=== PATIENT | male | born 1975 | race Caucasian/White ===

== ENCOUNTER 2017-11-15 17:45 | Emergency (ER) | payer SELFPAY | END 2017-11-15 17:46 | disposition left against medical advice (07) | LOC: ED 17:45 | DX: Z00.8 Encounter for other general examination (principal); Z53.21 Procedure and treatment not carried out due to patient leaving prior to being seen by health care provider ==

== ENCOUNTER 2018-09-08 13:56 | Inpatient (IN) | payer SELFPAY ==
[2018-09-08 14:36] LABS: Hematocrit 38.7 % (35.5-45.6); Mean Corpuscular HGB Conc 34 % (32-34); Mean Corpuscular Volume 87 fl (84-94); Platelet Count 192 K/mm3 (140-440); Red Blood Count 4.43 M/mm3 (3.65-5.03); Red Cell Distribution Width 13.8 % (13.2-15.2)
[2018-09-08] MEDS ORDERED: NACL 0.9% 1000 ML 1,000 ML IV ONE (14:38)
[2018-09-08] MEDS ORDERED: NACL 0.9% 1000 ML 1,000 ML ONE (14:41)
--- NOTE | 2018-09-08 14:45 | Emergency Department Report ---
ED Altered Mental Status HPI - General Chief Complaint: Altered Mental Status Stated Complaint: AMS Time Seen by Provider: 09/08/18 14:30 Source: EMS Mode of arrival: Stretcher Limitations: Altered Mental Status - History of Present Illness Initial Comments: Patient is 43 years old male, unknown past medical history. Patient brought to the emergency room via EMS for evaluation of altered mental status and decreased responsiveness. EMS stated that patient is staying in a local motel when the insurance agency owner called stating that the patient had been sick for days. Patient is not verbally responsive. Vital signs stable with an oxygen saturation of 96% on ro om air and a blood pressure of 105/59. Upon examining the patient patient responding only to painful stimuli. Nurse stated that patient has diarrhea in his underwear. Unable to obtain more history at this point. MD Complaint: altered mental status, decreased responsiveness -: unknown Severity: severe - Related Data Allergies Allergy/AdvReac Type Severity Reaction Status Date / Time Unable to Assess Allergy Unverified 09/08/18 14:11 ED Review of Systems ROS: Stated complaint: AMS Other details as noted in HPI Comment: Unobtainable due to pts medical conditions ED Past Medical Hx - Past Medical History Previous Medical History?: No Additional medical history: ROXIE - Surgical History Past Surgical History?: No Additional Surgical History: ROXIE - Social History Smoking Status: Unknown if ever smoked ED Physical Exam - General Limitations: Altered Mental Status General appearance: obtunded - Head Head exam: Present: atraumatic, normocephalic, normal inspection - Eye Eye exam: Present: normal appearance, PERRL - ENT ENT exam: Present: mucous membranes dry - Neck Neck exam: Present: normal inspection, full ROM. Absent: tenderness, meningismus, lymphadenopathy, thyromegaly - Respiratory Respiratory exam: Present: normal lung sounds bilaterally. Absent: respiratory distress, wheezes, rales, rhonchi, chest wall tenderness, accessory muscle use, decreased breath sounds, prolonged expiratory - Cardiovascular Cardiovascular Exam: Present: regular rate, normal rhythm, normal heart sounds - GI/Abdominal GI/Abdominal exam: Present: soft, normal bowel sounds. Absent: distended, guarding, rebound, organomegaly, mass, bruit, pulsatile mass, hernia - Extremities Exam Extremities exam: Present: normal inspection, full ROM, normal capillary refill. Absent: pedal edema, calf tenderness - Back Exam Back exam: Present: normal inspection. Absent: tenderness, CVA tenderness (R) - Neurological Exam Neurological exam: Present: altered - Skin Skin exam: Present: dry ED Course Vital Signs 09/08/18 09/08/18 14:07 15:00 Temperature 98.3 F Pulse Rate 97 H 95 H Respiratory 20 14 Rate Blood Pressure 105/59 Blood Pressure 102/66 [Right] O2 Sat by Pulse 96 100 Oximetry - Lab Data Result diagrams: 09/08/18 14:23 09/08/18 14:23 Lab Results 09/08/18 09/08/18 09/08/18 Range/Units 14:08 14:23 14:23 WBC 26.0 H (4.5-11.0) K/mm3 RBC 4.43 (3.65-5.03) M/mm3 Hgb 13.0 (11.8-15.2) gm/dl Hct 38.7 (35.5-45.6) % MCV 87 (84-94) fl MCH 29 (28-32) pg MCHC 34 (32-34) % RDW 13.8 (13.2-15.2) % Plt Count 192 (140-440) K/mm3 Add Manual Diff Complete Total Counted 100 Seg Neuts % (Manual) 82.0 H (40.0-70.0) % Band Neutrophils % 10.0 % Lymphocytes % (Manual) 2.0 L (13.4-35.0) % Reactive Lymphs % (Man) 0 % Monocytes % (Manual) 6.0 (0.0-7.3) % Eosinophils % (Manual) 0 (0.0-4.3) % Basophils % (Manual) 0 (0.0-1.8) % Metamyelocytes % 0 % Myelocytes % 0 % Promyelocytes % 0 % Blast Cells % 0 % Nucleated RBC % Not Reportable Seg Neutrophils # Man 21.3 H (1.8-7.7) K/mm3 Band Neutrophils # 2.6 K/mm3 Lymphocytes # (Manual) 0.5 L (1.2-5.4) K/mm3 Abs React Lymphs (Man) 0.0 K/mm3 Monocytes # (Manual) 1.6 H (0.0-0.8) K/mm3 Eosinophils # (Manual) 0.0 (0.0-0.4) K/mm3 Basophils # (Manual) 0.0 (0.0-0.1) K/mm3 Metamyelocytes # 0.0 K/mm3 Myelocytes # 0.0 K/mm3 Promyelocytes # 0.0 K/mm3 Blast Cells # 0.0 K/mm3 WBC Morphology Not Reportable Hypersegmented Neuts Not Reportable Hyposegmented Neuts Not Reportable Hypogranular Neuts Not Reportable Smudge Cells Not Reportable Toxic Granulation Not Reportable Toxic Vacuolation Not Reportable Dohle Bodies Not Reportable Pelger-Huet Anomaly Not Reportable Deepali Rods Not Reportable Platelet Estimate Not Reportable Clumped Platelets Not Reportable Plt Clumps, EDTA Not Reportable Large Platelets Not Reportable Giant Platelets Not Reportable Platelet Satelliting Not Reportable Plt Morphology Comment Not Reportable RBC Morphology Not Reportable Dimorphic RBCs Not Reportable Polychromasia Not Reportable Hypochromasia Not Reportable Poikilocytosis Not Reportable Anisocytosis Few Microcytosis Not Reportable Macrocytosis Not Reportable Spherocytes Not Reportable Pappenheimer Bodies Not Reportable Sickle Cells Not Reportable Target Cells Not Reportable Tear Drop Cells Not Reportable Ovalocytes Not Reportable Helmet Cells Not Reportable Fuentes-Mio Bodies Not Reportable [place] Rings Not Reportable [place] Cells Not Reportable Bite Cells Not Reportable Crenated Cell Not Reportable Elliptocytes Not Reportable Acanthocytes (Spur) Not Reportable Rouleaux Not Reportable Hemoglobin C Crystals Not Reportable Schistocytes Not Reportable Malaria parasites Not Reportable Tristian Bodies Not Reportable Hem Pathologist Commnt No Sodium 126 L (137-145) mmol/L Potassium 4.5 (3.6-5.0) mmol/L Chloride 83.3 L (98-107) mmol/L Carbon Dioxide 28 (22-30) mmol/L Anion Gap 19 mmol/L BUN 37 H (9-20) mg/dL Creatinine 1.8 H (0.8-1.5) mg/dL Estimated GFR 41 ml/min BUN/Creatinine Ratio 21 % Glucose 115 H (75-100) mg/dL POC Glucose 107 H (70-105) Lactic Acid (0.7-2.0) mmol/L Calcium 8.3 L (8.4-10.2) mg/dL Total Bilirubin 3.50 H (0.1-1.2) mg/dL AST 55 H (5-40) units/L ALT 40 (7-56) units/L Alkaline Phosphatase 221 H (35-129) units/L Ammonia (25-60) umol/L Troponin T (0.00-0.029) ng/mL Total Protein 7.5 (6.3-8.2) g/dL Albumin 2.8 L (3.9-5) g/dL Albumin/Globulin Ratio 0.6 % Lipase (13-60) units/L TSH (0.270-4.200) mlU/mL Urine Color (Yellow) Urine Turbidity (Clear) Urine pH (5.0-7.0) Ur Specific [place] (1.003-1.030) Urine Protein (Negative) mg/dL Urine Glucose (UA) (Negative) mg/dL Urine Ketones (Negative) mg/dL Urine Blood (Negative) Urine Nitrite (Negative) Urine Bilirubin (Negative) Urine Urobilinogen (<2.0) mg/dL Ur Leukocyte Esterase (Negative) Urine WBC (Auto) (0.0-6.0) /HPF Urine RBC (Auto) (0.0-6.0) /HPF Urine Opiates Screen Urine Methadone Screen Ur Barbiturates Screen Ur Phencyclidine Scrn Ur Amphetamines Screen U Benzodiazepines Scrn Urine Cocaine Screen U Marijuana (THC) Screen Drugs of Abuse Note Plasma/Serum Alcohol (0-0.07) % 09/08/18 09/08/18 09/08/18 Range/Units 14:23 14:23 14:23 WBC (4.5-11.0) K/mm3 RBC (3.65-5.03) M/mm3 Hgb (11.8-15.2) gm/dl Hct (35.5-45.6) % MCV (84-94) fl MCH (28-32) pg MCHC (32-34) % RDW (13.2-15.2) % Plt Count (140-440) K/mm3 Add Manual Diff Total Counted Seg Neuts % (Manual) (40.0-70.0) % Band Neutrophils % % Lymphocytes % (Manual) (13.4-35.0) % Reactive Lymphs % (Man) % Monocytes % (Manual) (0.0-7.3) % Eosinophils % (Manual) (0.0-4.3) % Basophils % (Manual) (0.0-1.8) % Metamyelocytes % % Myelocytes % % Promyelocytes % % Blast Cells % % Nucleated RBC % Seg Neutrophils # Man (1.8-7.7) K/mm3 Band Neutrophils # K/mm3 Lymphocytes # (Manual) (1.2-5.4) K/mm3 Abs React Lymphs (Man) K/mm3 Monocytes # (Manual) (0.0-0.8) K/mm3 Eosinophils # (Manual) (0.0-0.4) K/mm3 Basophils # (Manual) (0.0-0.1) K/mm3 Metamyelocytes # K/mm3 Myelocytes # K/mm3 Promyelocytes # K/mm3 Blast Cells # K/mm3 WBC Morphology Hypersegmented Neuts Hyposegmented Neuts Hypogranular Neuts Smudge Cells Toxic Granulation Toxic Vacuolation Dohle Bodies Pelger-Huet Anomaly Deepali Rods Platelet Estimate Clumped Platelets Plt Clumps, EDTA Large Platelets Giant Platelets Platelet Satelliting Plt Morphology Comment RBC Morphology Dimorphic RBCs Polychromasia Hypochromasia Poikilocytosis Anisocytosis Microcytosis Macrocytosis Spherocytes Pappenheimer Bodies Sickle Cells Target Cells Tear Drop Cells Ovalocytes Helmet Cells Fuentes-Mio Bodies [place] Rings Trent Cells Bite Cells Crenated Cell Elliptocytes Acanthocytes (Spur) Rouleaux Hemoglobin C Crystals Schistocytes Malaria parasites Tristian Bodies Hem Pathologist Commnt Sodium (137-145) mmol/L Potassium (3.6-5.0) mmol/L Chloride (98-107) mmol/L Carbon Dioxide (22-30) mmol/L Anion Gap mmol/L BUN (9-20) mg/dL Creatinine (0.8-1.5) mg/dL Estimated GFR ml/min BUN/Creatinine Ratio % Glucose (75-100) mg/dL POC Glucose (70-105) Lactic Acid (0.7-2.0) mmol/L Calcium (8.4-10.2) mg/dL Total Bilirubin (0.1-1.2) mg/dL AST (5-40) units/L ALT (7-56) units/L Alkaline Phosphatase (35-129) units/L Ammonia (25-60) umol/L Troponin T < 0.010 (0.00-0.029) ng/mL Total Protein (6.3-8.2) g/dL Albumin (3.9-5) g/dL Albumin/Globulin Ratio % Lipase 104 H (13-60) units/L TSH 4.490 H (0.270-4.200) mlU/mL Urine Color (Yellow) Urine Turbidity (Clear) Urine pH (5.0-7.0) Ur Specific [place] (1.003-1.030) Urine Protein (Negative) mg/dL Urine Glucose (UA) (Negative) mg/dL Urine Ketones (Negative) mg/dL Urine Blood (Negative) Urine Nitrite (Negative) Urine Bilirubin (Negative) Urine Urobilinogen (<2.0) mg/dL Ur Leukocyte Esterase (Negative) Urine WBC (Auto) (0.0-6.0) /HPF Urine RBC (Auto) (0.0-6.0) /HPF Urine Opiates Screen Urine Methadone Screen Ur Barbiturates Screen Ur Phencyclidine Scrn Ur Amphetamines Screen U Benzodiazepines Scrn Urine Cocaine Screen U Marijuana (THC) Screen Drugs of Abuse Note Plasma/Serum Alcohol < 0.01 (0-0.07) % 09/08/18 09/08/18 09/08/18 Range/Units 14:39 14:39 15:08 WBC (4.5-11.0) K/mm3 RBC (3.65-5.03) M/mm3 Hgb (11.8-15.2) gm/dl Hct (35.5-45.6) % MCV (84-94) fl MCH (28-32) pg MCHC (32-34) % RDW (13.2-15.2) % Plt Count (140-440) K/mm3 Add Manual Diff Total Counted Seg Neuts % (Manual) (40.0-70.0) % Band Neutrophils % % Lymphocytes % (Manual) (13.4-35.0) % Reactive Lymphs % (Man) % Monocytes % (Manual) (0.0-7.3) % Eosinophils % (Manual) (0.0-4.3) % Basophils % (Manual) (0.0-1.8) % Metamyelocytes % % Myelocytes % % Promyelocytes % % Blast Cells % % Nucleated RBC % Seg Neutrophils # Man (1.8-7.7) K/mm3 Band Neutrophils # K/mm3 Lymphocytes # (Manual) (1.2-5.4) K/mm3 Abs React Lymphs (Man) K/mm3 Monocytes # (Manual) (0.0-0.8) K/mm3 Eosinophils # (Manual) (0.0-0.4) K/mm3 Basophils # (Manual) (0.0-0.1) K/mm3 Metamyelocytes # K/mm3 Myelocytes # K/mm3 Promyelocytes # K/mm3 Blast Cells # K/mm3 WBC Morphology Hypersegmented Neuts Hyposegmented Neuts Hypogranular Neuts Smudge Cells Toxic Granulation Toxic Vacuolation Dohle Bodies Pelger-Huet Anomaly Deepali Rods Platelet Estimate Clumped Platelets Plt Clumps, EDTA Large Platelets Giant Platelets Platelet Satelliting Plt Morphology Comment RBC Morphology Dimorphic RBCs Polychromasia Hypochromasia Poikilocytosis Anisocytosis Microcytosis Macrocytosis Spherocytes Pappenheimer Bodies Sickle Cells Target Cells Tear Drop Cells Ovalocytes Helmet Cells Fuentes-Mio Bodies [place] Rings Trent Cells Bite Cells Crenated Cell Elliptocytes Acanthocytes (Spur) Rouleaux Hemoglobin C Crystals Schistocytes Malaria parasites Tristian Bodies Hem Pathologist Commnt Sodium (137-145) mmol/L Potassium (3.6-5.0) mmol/L Chloride (98-107) mmol/L Carbon Dioxide (22-30) mmol/L Anion Gap mmol/L BUN (9-20) mg/dL Creatinine (0.8-1.5) mg/dL Estimated GFR ml/min BUN/Creatinine Ratio % Glucose (75-100) mg/dL POC Glucose (70-105) Lactic Acid 2.70 H* (0.7-2.0) mmol/L Calcium (8.4-10.2) mg/dL Total Bilirubin (0.1-1.2) mg/dL AST (5-40) units/L ALT (7-56) units/L Alkaline Phosphatase (35-129) units/L Ammonia (25-60) umol/L Troponin T (0.00-0.029) ng/mL Total Protein (6.3-8.2) g/dL Albumin (3.9-5) g/dL Albumin/Globulin Ratio % Lipase (13-60) units/L TSH (0.270-4.200) mlU/mL Urine Color Brianne (Yellow) Urine Turbidity Clear (Clear) Urine pH 5.0 (5.0-7.0) Ur Specific [place]idden 1.011 (1.003-1.030) Urine Protein <15 mg/dl (Negative) mg/dL Urine Glucose (UA) Neg (Negative) mg/dL Urine Ketones Tr (Negative) mg/dL Urine Blood Neg (Negative) Urine Nitrite Neg (Negative) Urine Bilirubin Neg (Negative) Urine Urobilinogen 2.0 (<2.0) mg/dL Ur Leukocyte Esterase Neg (Negative) Urine WBC (Auto) 1.0 (0.0-6.0) /HPF Urine RBC (Auto) < 1.0 (0.0-6.0) /HPF Urine Opiates Screen Presumptive negative Urine Methadone Screen Presumptive negative Ur Barbiturates Screen Presumptive negative Ur Phencyclidine Scrn Presumptive negative Ur Amphetamines Screen Presumptive negative U Benzodiazepines Scrn Presumptive negative Urine Cocaine Screen Presumptive negative U Marijuana (THC) Screen Presumptive negative Drugs of Abuse Note Disclamer Plasma/Serum Alcohol (0-0.07) % 09/08/18 Range/Units 15:08 WBC (4.5-11.0) K/mm3 RBC (3.65-5.03) M/mm3 Hgb (11.8-15.2) gm/dl Hct (35.5-45.6) % MCV (84-94) fl MCH (28-32) pg MCHC (32-34) % RDW (13.2-15.2) % Plt Count (140-440) K/mm3 Add Manual Diff Total Counted Seg Neuts % (Manual) (40.0-70.0) % Band Neutrophils % % Lymphocytes % (Manual) (13.4-35.0) % Reactive Lymphs % (Man) % Monocytes % (Manual) (0.0-7.3) % Eosinophils % (Manual) (0.0-4.3) % Basophils % (Manual) (0.0-1.8) % Metamyelocytes % % Myelocytes % % Promyelocytes % % Blast Cells % % Nucleated RBC % Seg Neutrophils # Man (1.8-7.7) K/mm3 Band Neutrophils # K/mm3 Lymphocytes # (Manual) (1.2-5.4) K/mm3 Abs React Lymphs (Man) K/mm3 Monocytes # (Manual) (0.0-0.8) K/mm3 Eosinophils # (Manual) (0.0-0.4) K/mm3 Basophils # (Manual) (0.0-0.1) K/mm3 Metamyelocytes # K/mm3 Myelocytes # K/mm3 Promyelocytes # K/mm3 Blast Cells # K/mm3 WBC Morphology Hypersegmented Neuts Hyposegmented Neuts Hypogranular Neuts Smudge Cells Toxic Granulation Toxic Vacuolation Dohle Bodies Pelger-Huet Anomaly Deepali Rods Platelet Estimate Clumped Platelets Plt Clumps, EDTA Large Platelets Giant Platelets Platelet Satelliting Plt Morphology Comment RBC Morphology Dimorphic RBCs Polychromasia Hypochromasia Poikilocytosis Anisocytosis Microcytosis Macrocytosis Spherocytes Pappenheimer Bodies Sickle Cells Target Cells Tear Drop Cells Ovalocytes Helmet Cells Fuentes-Mio Bodies [place] Rings [place] Cells Bite Cells Crenated Cell Elliptocytes Acanthocytes (Spur) Rouleaux Hemoglobin C Crystals Schistocytes Malaria parasites Tristian Bodies Hem Pathologist Commnt Sodium (137-145) mmol/L Potassium (3.6-5.0) mmol/L Chloride (98-107) mmol/L Carbon Dioxide (22-30) mmol/L Anion Gap mmol/L BUN (9-20) mg/dL Creatinine (0.8-1.5) mg/dL Estimated GFR ml/min BUN/Creatinine Ratio % Glucose (75-100) mg/dL POC Glucose (70-105) Lactic Acid (0.7-2.0) mmol/L Calcium (8.4-10.2) mg/dL Total Bilirubin (0.1-1.2) mg/dL AST (5-40) units/L ALT (7-56) units/L Alkaline Phosphatase (35-129) units/L Ammonia 220.0 H (25-60) umol/L Troponin T (0.00-0.029) ng/mL Total Protein (6.3-8.2) g/dL Albumin (3.9-5) g/dL Albumin/Globulin Ratio % Lipase (13-60) units/L TSH (0.270-4.200) mlU/mL Urine Color (Yellow) Urine Turbidity (Clear) Urine pH (5.0-7.0) Ur Specific [place] (1.003-1.030) Urine Protein (Negative) mg/dL Urine Glucose (UA) (Negative) mg/dL Urine Ketones (Negative) mg/dL Urine Blood (Negative) Urine Nitrite (Negative) Urine Bilirubin (Negative) Urine Urobilinogen (<2.0) mg/dL Ur Leukocyte Esterase (Negative) Urine WBC (Auto) (0.0-6.0) /HPF Urine RBC (Auto) (0.0-6.0) /HPF Urine Opiates Screen Urine Methadone Screen Ur Barbiturates Screen Ur Phencyclidine Scrn Ur Amphetamines Screen U Benzodiazepines Scrn Urine Cocaine Screen U Marijuana (THC) Screen Drugs of Abuse Note Plasma/Serum Alcohol (0-0.07) % - Medical Decision Making Patient is 43 years old male, unknown past medical history. Patient brought to the emergency room via EMS for evaluation of altered mental status and decreased responsiveness. EMS stated that patient is staying in a local motel when the insurance agency owner called stating that the patient had been sick for days. Patient is not verbally responsive. Vital signs stable with an oxygen saturation of 96% on room air and a blood pressure of 105/59. Upon examining the patient patient responding only to painful stimuli. Nurse stated that patient has diarrhea in his underwear. Unable to obtain more history at this point. Patient evaluated by me multiple times. Patient vital signs remained stable with oxygen saturation of 100% on [address] brain is negative for acute finding. Sepsis protocol initiated on this patient. Increase liver enzymes and ammonia levels indicating possible hepatic encephalopathy. Discussed the patient with Dr Olivier, he agreed to admit the patients's service. Critical Care Time: Yes Critical care time in (mins) excluding proc time.: 30 Critical care attestation.: If time is entered above; I have spent that time in minutes in the direct care of this critically ill patient, excluding procedure time. ED Disposition Clinical Impression: Sepsis, Acute hepatitis, Hepatic encephalopathy, Hyponatremia, Acute renal failure Disposition: 09 OP ADMIT IP TO THIS HOSP Is pt being admited?: Yes Condition: Stable
[2018-09-08 14:55] LABS: Albumin 2.8 g/dL (3.9-5); Calcium 8.3 mg/dL (8.4-10.2)
[2018-09-08 14:57] LABS: Bilirubin,Urine NEG (Negative); Blood,Urine NEG (Negative); Color,Urine Amber (Yellow); Protein,Urine <15 mg/dL mg/dL (Negative); RBC,Urine < 1.0 /HPF (0.0-6.0)
--- NOTE | 2018-09-08 15:09 | Cat Scan Report ---
CT HEAD WITHOUT CONTRAST INDICATION: Altered mental status. COMPARISON: None similar at this institution. FINDINGS: Noncontrast head CT with few images repeated for motion demonstrates normal ventricles and sulci without acute or recent infarct, hemorrhage, mass effect or midline shift. No abnormal extra-axial fluid collections. Posterior fossa structures and basilar cisterns within normal limits. Symmetric eye globes. Left maxillary sinus 1.3 cm mucosal thickening or retention cyst inferiorly. 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 Somewhat hypoplastic right frontal sinus. Clear remainder imaged paranasal sinuses and mastoid air cells. Mild leftward nasal septal deviation. Intact calvarium. A small left frontotemporal scalp calcification on axial image 14. CONCLUSION: No acute intracranial CT abnormality with few other findings, as described. Thank you for the opportunity to participate in this patient's care.
[2018-09-08 15:18] LABS: Band Neutrophils # (Manual) 2.6 K/mm3; Basophils % (Manual) 0 % (0.0-1.8); Eosinophils % (Manual) 0 % (0.0-4.3); Total Cells Counted 100
[2018-09-08 15:19] LABS: Anisocytosis Few
[2018-09-08 15:21] LABS: Amphetamine Screen,Urine PRESUMPTIVE NEGATIVE; Benzodiazepines Screen,Urine PRESUMPTIVE NEGATIVE; Cannabinoid Screen,Urine PRESUMPTIVE NEGATIVE; Cocaine Screen,Urine PRESUMPTIVE NEGATIVE; Methadone Screen,Urine PRESUMPTIVE NEGATIVE; Opiate Screen,Urine PRESUMPTIVE NEGATIVE
[2018-09-08] MEDS: ZOSYN/NS 3.375GM/50ML 3.375 GM/50 ML BAG IV ONE ×2 (15:58→19:18)
[2018-09-08] MEDS ORDERED: CEPHULAC PO ONE (16:04)
--- NOTE | 2018-09-08 16:43 | History and Physical Report ---
History of Present Illness Chief complaint: Unresponsive History of present illness: 43 YO Male with years old male, with unknown past medical history. Pt is confused and lethargic and unable to provide detailed history. Pt history taken from ED staff, and EMS staff. As per staff, the owner manager of the extended stay motel where the popeye lives called EMS because the patient has been "sick" for the past 4 days. Upon EMS arrival, the patient was found to be confused, lethargic with soiled underwear. Pt transported to [facility] for further care and evaluation. Pt seen and evaluated in ED and found to have Sepsis, Encephalopathy, Acidosis, Acute Renal Failure, and Severe Malnutrition. Pt is resting in bed and is able to protect his airway. Pt admitted to medical floor, and initiated on Sepsis Protocol. No further history obtainable. Past History Past Medical History: No medical history, other (UTO) Past Surgical History: No surgical history, Other (UTO) Social history: single Family history: other (UTO) Medications and Allergies Allergies Allergy/AdvReac Type Severity Reaction Status Date / Time Unable to Assess Allergy Unverified 09/08/18 14:11 Review of Systems ROS unobtainable: due to mental status Exam - Constitutional Vitals: Temp Pulse Resp BP Pulse Ox 98.3 F 95 H 14 102/66 100 09/08/18 14:07 09/08/18 15:00 09/08/18 15:00 09/08/18 15:00 09/08/18 15:00 General appearance: Present: mild distress - EENT Eyes: Present: PERRL, miosis ENT: hearing intact, clear oral mucosa - Neck Neck: Present: supple, normal ROM - Respiratory Respiratory effort: normal Respiratory: bilateral: CTA - Cardiovascular Heart Sounds: Present: S1 & S2. Absent: rub, click - Extremities Extremities: pulses symmetrical, No edema Peripheral Pulses: abnormal (capillary refill greater than 3. 5 seconds) - Abdominal General gastrointestinal: Present: soft, distended, hypoactive bowel sounds Male genitourinary: Present: normal - Integumentary Integumentary: Present: clear, dry, clammy, decreased turgor - Musculoskeletal Musculoskeletal: generalized weakness - Psychiatric Psychiatric: no appropriate mood/affect, no intact judgment & insight, no memory intact - Neurologic Neurologic: CNII-XII intact, no focal deficits, no gait normal Results - Labs CBC & Chem 7: 09/08/18 14:23 09/08/18 14:23 Labs: Abnormal lab results 09/08/18 09/08/18 09/08/18 Range/Units 14:08 14:23 14:23 WBC 26.0 H (4.5-11.0) K/mm3 Seg Neuts % (Manual) 82.0 H (40.0-70.0) % Lymphocytes % (Manual) 2.0 L (13.4-35.0) % Seg Neutrophils # Man 21.3 H (1.8-7.7) K/mm3 Lymphocytes # (Manual) 0.5 L (1.2-5.4) K/mm3 Monocytes # (Manual) 1.6 H (0.0-0.8) K/mm3 Sodium 126 L (137-145) mmol/L Chloride 83.3 L (98-107) mmol/L BUN 37 H (9-20) mg/dL Creatinine 1.8 H (0.8-1.5) mg/dL Glucose 115 H (75-100) mg/dL POC Glucose 107 H (70-105) Lactic Acid (0.7-2.0) mmol/L Calcium 8.3 L (8.4-10.2) mg/dL Total Bilirubin 3.50 H (0.1-1.2) mg/dL AST 55 H (5-40) units/L Alkaline Phosphatase 221 H (35-129) units/L Ammonia (25-60) umol/L Albumin 2.8 L (3.9-5) g/dL Lipase (13-60) units/L TSH (0.270-4.200) mlU/mL 09/08/18 09/08/18 09/08/18 Range/Units 14:23 14:23 15:08 WBC (4.5-11.0) K/mm3 Seg Neuts % (Manual) (40.0-70.0) % Lymphocytes % (Manual) (13.4-35.0) % Seg Neutrophils # Man (1.8-7.7) K/mm3 Lymphocytes # (Manual) (1.2-5.4) K/mm3 Monocytes # (Manual) (0.0-0.8) K/mm3 Sodium (137-145) mmol/L Chloride (98-107) mmol/L BUN (9-20) mg/dL Creatinine (0.8-1.5) mg/dL Glucose (75-100) mg/dL POC Glucose (70-105) Lactic Acid 2.70 H* (0.7-2.0) mmol/L Calcium (8.4-10.2) mg/dL Total Bilirubin (0.1-1.2) mg/dL AST (5-40) units/L Alkaline Phosphatase (35-129) units/L Ammonia (25-60) umol/L Albumin (3.9-5) g/dL Lipase 104 H (13-60) units/L TSH 4.490 H (0.270-4.200) mlU/mL 09/08/18 Range/Units 15:08 WBC (4.5-11.0) K/mm3 Seg Neuts % (Manual) (40.0-70.0) % Lymphocytes % (Manual) (13.4-35.0) % Seg Neutrophils # Man (1.8-7.7) K/mm3 Lymphocytes # (Manual) (1.2-5.4) K/mm3 Monocytes # (Manual) (0.0-0.8) K/mm3 Sodium (137-145) mmol/L Chloride (98-107) mmol/L BUN (9-20) mg/dL Creatinine (0.8-1.5) mg/dL Glucose (75-100) mg/dL POC Glucose (70-105) Lactic Acid (0.7-2.0) mmol/L Calcium (8.4-10.2) mg/dL Total Bilirubin (0.1-1.2) mg/dL AST (5-40) units/L Alkaline Phosphatase (35-129) units/L Ammonia 220.0 H (25-60) umol/L Albumin (3.9-5) g/dL Lipase (13-60) units/L TSH (0.270-4.200) mlU/mL Assessment and Plan - Patient Problems (1) Sepsis Current Visit: No Status: Acute Qualifiers: Sepsis type: sepsis due to unspecified organism Qualified Code(s): A41.9 - Sepsis, unspecified organism Plan to address problem: IV antibiotic therapy, blood cultures, CBC, CMP, serial lactic acid, monitor uop q shift, IVF resuscitation therpay. (2) Acidosis Current Visit: Yes Status: Acute Plan to address problem: IV bicarbonate therapy, treat sepsis. (3) EtOH dependence Current Visit: Yes Status: Acute Qualifiers: Complication of substance-induced condition: with perceptual disturbance Plan to address problem: CIWA protocol, thiamine folic acid, multivitamin, Ativan prn (4) Severe malnutrition Current Visit: Yes Status: Acute Plan to address problem: Encourage increased protein intake when awake and alert and oriented x3 (5) Acute renal failure Current Visit: No Status: Acute Qualifiers: Acute renal failure type: with acute tubular necrosis Qualified Code(s): N17.0 - Acute kidney failure with tubular necrosis Plan to address problem: IVF resuscitation therapy, monitor uop q shift, treat sepsis (6) Hepatic encephalopathy Current Visit: No Status: Acute Plan to address problem: CT Head, neuro checks, lactulose therapy, repeat ammonia level in am. (7) DVT prophylaxis Current Visit: Yes Status: Acute Plan to address problem: SCD to BLE while in bed.
[2018-09-08] MEDS ORDERED: PROVENTIL IH PRN (16:47)
[2018-09-08] MEDS ORDERED: SODIUM CHLORIDE FLUSH SYRINGE 10 ML IV PRN (16:47)
[2018-09-08] MEDS ORDERED: ZOFRAN IV PRN (16:47)
[2018-09-08] MEDS ORDERED: NACL 0.9% 1000 ML IV ONE (16:47)
[2018-09-08] MEDS ORDERED: TYLENOL PO PRN (16:47)
--- NOTE | 2018-09-08 17:17 | XRay Report ---
FINAL REPORT EXAM: XR CHEST 1V AP HISTORY: chest pain TECHNIQUE: Frontal portable view of the chest Comparison: None FINDINGS: There is bilateral hypoinflation. There is pulmonary consolidation in the left lung base. Atelectasis versus infiltrate. There is no evidence of pneumothorax or pleural fluid collection. The cardiac silhouette appears to be normal size. The thoracic aorta and bony structures are unremarkable. Visualization detail of portions of the thor acic spine is limited. IMPRESSION: 1. Hypoinflation with atelectasis versus infiltrate left lung base. PA and lateral views of the chest or CT chest would be helpful for further evaluation.
[2018-09-08 17:22] LABS: Hepatitis B Surface Antigen Non-Reactive (Negative); Hepatitis C Virus Antibody Non-Reactive (NonReactive)
[2018-09-08] MEDS: LEVAQUIN 750MG/150ML 750 MG/150 ML BAG IV SCH (17:39)
[2018-09-08] MEDS ORDERED: VANCOMYCIN 1,000 MG in NACL 0.9% 500 ML 500 ML IV ONE (19:30)
[2018-09-08] MEDS ORDERED: VANCOMYCIN/NS 1 GM/250 ML 1 GM/250 ML BAG IV ONE (20:00)
[2018-09-08] MEDS ORDERED: CEPHULAC PR ONE (21:00)
[2018-09-08] MEDS ORDERED: NACL 0.45% 1,000 ML IV SCH (22:00)
[2018-09-08] MEDS: FLAGYL 500 MG/100 ML 500 MG/100 ML BAG IV SCH (22:39)
[2018-09-08] MEDS: SODIUM CHLORIDE FLUSH SYRINGE 10 ML IV SCH (22:43)
[2018-09-08] MEDS ORDERED: NACL 0.45% 1000 ML 1,000 ML IV SCH (23:00)
[2018-09-09] MEDS: FLAGYL 500 MG/100 ML 500 MG/100 ML BAG IV SCH ×3 (06:07→22:14)
[2018-09-09 06:23] LABS: Hematocrit 34.2 % (35.5-45.6); Hemoglobin 11.3 gm/dl (11.8-15.2); Mean Corpuscular HGB Conc 33 % (32-34); Mean Corpuscular Volume 88 fl (84-94); Platelet Count 191 K/mm3 (140-440); Red Blood Count 3.88 M/mm3 (3.65-5.03); Red Cell Distribution Width 13.6 % (13.2-15.2)
[2018-09-09 06:41] LABS: Calcium 7.9 mg/dL (8.4-10.2)
[2018-09-09 08:35] LABS: Band Neutrophils # (Manual) 2.7 K/mm3; Basophils % (Manual) 0 % (0.0-1.8); Eosinophils % (Manual) 0 % (0.0-4.3); Hypochromasia 1+; Myelocytes # (Manual) 0.5 K/mm3; Platelet Estimate Consistent w Auto; Target Cells 1+; Total Cells Counted 100
--- NOTE | 2018-09-09 09:39 | Progress Note ---
Assessment and Plan Assessment and plan: 43-year-old man with a known past medical history. Brought to the emergency room with altered mental status, decreased responsiveness per EMS he was staying at a local motel and per the motel staff he had been sick for a few days, and it was found unresponsive . At the time of presentation the patient was confused and lethargic and in soiled underwear. After lactulose he improved, admits to heavy etoh drinking , lives in the motel, c/o diffuse abdominal pain Labs reviewed, Ammonia in 200s on arrival, LFts wnl, etoh level neg UDS negative, hepatitis serology negative, UA negative labs show marked leukocytosis, slightly elevated TSh, but normal T4 Imaging; Chest x-ray shows left base pneumonia CT head shows no acute findings CT A/P; no image or report in EMR, but per RN, radiology called and said he has peritonitis and 6cm abscess in pelvic area, no signs of perforation Diagnosis Sepsis due to Pelvic abscess and peritonitis Community-acquired pneumonia Hepatic encephalopathy Hypokalemia Mild anemia Marked leukocytosis Etoh liver disease ?pna vs atelectasis PLAN Received empiric antibiotics, IV fluids, GS consulted to evaluate abscess He received lactulose, repeat ammonia level is now within normal limits Liver function tests are normal, which may be the case in advanced chronic liver disease hepatitis serologies negative We'll obtain liver ultrasound, consider GI consult obtain 2 view XR DVT prophylaxis with Lovenox History Interval history: Review of systems Constitutional: No fevers, no malaise, no joint pains CVS: No chest pain, no orthopnea, no dyspnea on exertion, no pedal edema GI: c/o diffuse abdominal pain Respiratory: No shortness of breath, no wheezing, no coughing Hospitalist Physical - Physical exam Narrative exam: General.: no distress HEENT: Moist mucous membranes, extraocular muscles intact, no lymphadenopathy Neck: supple Cardiac: S1-S2 heard Lungs: clear to auscultation bilaterally Abdomen: soft , tender, nondistended, bowel sounds positive Extremities: no edema clubbing or cyanosis Skin: no rash or lesions Neurologic: no gross focal deficits Psych: calm, and cooperative - Constitutional Vitals: Temp Pulse Resp BP Pulse Ox 97.9 F 96 H 16 89/48 96 09/08/18 19:46 09/08/18 19:46 09/08/18 19:46 09/08/18 19:46 09/09/18 08:46 General appearance: Present: mild distress Results - Labs CBC & Chem 7: 09/09/18 05:40 09/09/18 05:40 Labs: Laboratory Last Values WBC 27.1 K/mm3 (4.5-11.0) H 09/09/18 05:40 RBC 3.88 M/mm3 (3.65-5.03) 09/09/18 05:40 Hgb 11.3 gm/dl (11.8-15.2) L 09/09/18 05:40 Hct 34.2 % (35.5-45.6) L 09/09/18 05:40 MCV 88 fl (84-94) 09/09/18 05:40 MCH 29 pg (28-32) 09/09/18 05:40 MCHC 33 % (32-34) 09/09/18 05:40 RDW 13.6 % (13.2-15.2) 09/09/18 05:40 Plt Count 191 K/mm3 (140-440) 09/09/18 05:40 Add Manual Diff Complete 09/09/18 05:40 Total Counted 100 09/09/18 05:40 Seg Neuts % (Manual) 81.0 % (40.0-70.0) H 09/09/18 05:40 Band Neutrophils % 10.0 % 09/09/18 05:40 Lymphocytes % (Manual) 0 % (13.4-35.0) L 09/09/18 05:40 Reactive Lymphs % (Man) 0 % 09/09/18 05:40 Monocytes % (Manual) 6.0 % (0.0-7.3) 09/09/18 05:40 Eosinophils % (Manual) 0 % (0.0-4.3) 09/09/18 05:40 Basophils % (Manual) 0 % (0.0-1.8) 09/09/18 05:40 Metamyelocytes % 1.0 % 09/09/18 05:40 Myelocytes % 2.0 % 09/09/18 05:40 Promyelocytes % 0 % 09/09/18 05:40 Blast Cells % 0 % 09/09/18 05:40 Nucleated RBC % Not Reportable 09/09/18 05:40 Seg Neutrophils # Man 22.0 K/mm3 (1.8-7.7) H 09/09/18 05:40 Band Neutrophils # 2.7 K/mm3 09/09/18 05:40 Lymphocytes # (Manual) 0.0 K/mm3 (1.2-5.4) L 09/09/18 05:40 Abs React Lymphs (Man) 0.0 K/mm3 09/09/18 05:40 Monocytes # (Manual) 1.6 K/mm3 (0.0-0.8) H 09/09/18 05:40 Eosinophils # (Manual) 0.0 K/mm3 (0.0-0.4) 09/09/18 05:40 Basophils # (Manual) 0.0 K/mm3 (0.0-0.1) 09/09/18 05:40 Metamyelocytes # 0.3 K/mm3 09/09/18 05:40 Myelocytes # 0.5 K/mm3 09/09/18 05:40 Promyelocytes # 0.0 K/mm3 09/09/18 05:40 Blast Cells # 0.0 K/mm3 09/09/18 05:40 WBC Morphology Not Reportable 09/09/18 05:40 Hypersegmented Neuts Not Reportable 09/09/18 05:40 Hyposegmented Neuts Not Reportable 09/09/18 05:40 Hypogranular Neuts Not Reportable 09/09/18 05:40 Smudge Cells Not Reportable 09/09/18 05:40 Toxic Granulation Not Reportable 09/09/18 05:40 Toxic Vacuolation Not Reportable 09/09/18 05:40 Dohle Bodies Not Reportable 09/09/18 05:40 Pelger-Huet Anomaly Not Reportable 09/09/18 05:40 Deepali Rods Not Reportable 09/09/18 05:40 Platelet Estimate Consistent w auto 09/09/18 05:40 Clumped Platelets Not Reportable 09/09/18 05:40 Plt Clumps, EDTA Not Reportable 09/09/18 05:40 Large Platelets Not Reportable 09/09/18 05:40 Giant Platelets Not Reportable 09/09/18 05:40 Platelet Satelliting Not Reportable 09/09/18 05:40 Plt Morphology Comment Not Reportable 09/09/18 05:40 RBC Morphology Not Reportable 09/09/18 05:40 Dimorphic RBCs Not Reportable 09/09/18 05:40 Polychromasia Not Reportable 09/09/18 05:40 Hypochromasia 1+ 09/09/18 05:40 Poikilocytosis Not Reportable 09/09/18 05:40 Anisocytosis Not Reportable 09/09/18 05:40 Microcytosis Few 09/09/18 05:40 Macrocytosis Not Reportable 09/09/18 05:40 Spherocytes Not Reportable 09/09/18 05:40 Pappenheimer Bodies Not Reportable 09/09/18 05:40 Sickle Cells Not Reportable 09/09/18 05:40 Target Cells 1+ 09/09/18 05:40 Tear Drop Cells Not Reportable 09/09/18 05:40 Ovalocytes Not Reportable 09/09/18 05:40 Helmet Cells Not Reportable 09/09/18 05:40 Fuentes-[place] Bodies Not Reportable 09/09/18 05:40 Epes Rings Not Reportable 09/09/18 05:40 Ellis Cells Not Reportable 09/09/18 05:40 Bite Cells Not Reportable 09/09/18 05:40 Crenated Cell Not Reportable 09/09/18 05:40 Elliptocytes Not Reportable 09/09/18 05:40 Acanthocytes (Spur) Not Reportable 09/09/18 05:40 Rouleaux Not Reportable 09/09/18 05:40 Hemoglobin C Crystals Not Reportable 09/09/18 05:40 Schistocytes Not Reportable 09/09/18 05:40 Malaria parasites Not Reportable 09/09/18 05:40 Tristian Bodies Not Reportable 09/09/18 05:40 Hem Pathologist Commnt No 09/09/18 05:40 Sodium 135 mmol/L (137-145) L D 09/09/18 05:40 Potassium 3.4 mmol/L (3.6-5.0) L D 09/09/18 05:40 Chloride 96.7 mmol/L (98-107) L 09/09/18 05:40 Carbon Dioxide 24 mmol/L (22-30) 09/09/18 05:40 Anion Gap 18 mmol/L 09/09/18 05:40 BUN 23 mg/dL (9-20) H 09/09/18 05:40 Creatinine 1.3 mg/dL (0.8-1.5) 09/09/18 05:40 Estimated GFR 60 ml/min 09/09/18 05:40 BUN/Creatinine Ratio 18 % 09/09/18 05:40 Glucose 95 mg/dL (75-100) 09/09/18 05:40 POC Glucose 107 (70-105) H 09/08/18 14:08 Lactic Acid 1.40 mmol/L (0.7-2.0) 09/09/18 05:40 Calcium 7.9 mg/dL (8.4-10.2) L 09/09/18 05:40 Total Bilirubin 3.50 mg/dL (0.1-1.2) H 09/08/18 14:23 AST 55 units/L (5-40) H 09/08/18 14:23 ALT 40 units/L (7-56) 09/08/18 14:23 Alkaline Phosphatase 221 units/L (35-129) H 09/08/18 14:23 Ammonia 29.0 umol/L (25-60) 09/09/18 05:40 Troponin T < 0.010 ng/mL (0.00-0.029) 09/08/18 14:23 Total Protein 7.5 g/dL (6.3-8.2) 09/08/18 14:23 Albumin 2.8 g/dL (3.9-5) L 09/08/18 14:23 Albumin/Globulin Ratio 0.6 % 09/08/18 14:23 Lipase 104 units/L (13-60) H 09/08/18 14:23 TSH 4.490 mlU/mL (0.270-4.200) H 09/08/18 14:23 Free T4 0.93 ng/dL (0.76-1.46) 09/08/18 16:10 Urine Color Brianne (Yellow) 09/08/18 14:39 Urine Turbidity Clear (Clear) 09/08/18 14:39 Urine pH 5.0 (5.0-7.0) 09/08/18 14:39 Ur Specific [place] 1.011 (1.003-1.030) 09/08/18 14:39 Urine Protein <15 mg/dl mg/dL (Negative) 09/08/18 14:39 Urine Glucose (UA) Neg mg/dL (Negative) 09/08/18 14:39 Urine Ketones Tr mg/dL (Negative) 09/08/18 14:39 Urine Blood Neg (Negative) 09/08/18 14:39 Urine Nitrite Neg (Negative) 09/08/18 14:39 Urine Bilirubin Neg (Negative) 09/08/18 14:39 Urine Urobilinogen 2.0 mg/dL (<2.0) 09/08/18 14:39 Ur Leukocyte Esterase Neg (Negative) 09/08/18 14:39 Urine WBC (Auto) 1.0 /HPF (0.0-6.0) 09/08/18 14:39 Urine RBC (Auto) < 1.0 /HPF (0.0-6.0) 09/08/18 14:39 Salicylates < 0.3 mg/dL (2.8-20.0) L 09/08/18 16:10 Urine Opiates Screen Presumptive negative 09/08/18 14:39 Urine Methadone Screen Presumptive negative 09/08/18 14:39 Acetaminophen < 5.0 ug/mL (10.0-30.0) L 09/08/18 16:10 Ur Barbiturates Screen Presumptive negative 09/08/18 14:39 Ur Phencyclidine Scrn Presumptive negative 09/08/18 14:39 Ur Amphetamines Screen Presumptive negative 09/08/18 14:39 U Benzodiazepines Scrn Presumptive negative 09/08/18 14:39 Urine Cocaine Screen Presumptive negative 09/08/18 14:39 U Marijuana (THC) Screen Presumptive negative 09/08/18 14:39 Drugs of Abuse Note Disclamer 09/08/18 14:39 Plasma/Serum Alcohol < 0.01 % (0-0.07) 09/08/18 14:23 Hepatitis A IgM Ab Non-reactive (NonReactive) 09/08/18 16:10 Hep Bs Antigen Non-reactive (Negative) 09/08/18 16:10 Hep B Core IgM Ab Non-reactive (NonReactive) 09/08/18 16:10 Hepatitis C Antibody Non-reactive (NonReactive) 09/08/18 16:10
[2018-09-09] MEDS: SODIUM CHLORIDE FLUSH SYRINGE 10 ML IV SCH ×2 (10:00→22:15)
[2018-09-09] MEDS: LEVAQUIN 750MG/150ML 750 MG/150 ML BAG IV SCH (10:00)
[2018-09-09] MEDS ORDERED: AFLURIA QUAD 2018-2019 SYRINGE IM ONE (12:00)
--- NOTE | 2018-09-09 14:12 | Gastroenterology Consultation ---
Addendum entered and electronically signed by YANNI PORTILLO MD 09/09/18 16:50: pt seen and examined, chart reviewed, consult below reviewed - pt presents w/ decrease mental status in setting of h/o etoh se with noted increase ammonia level. - pt w/ subsequent ct scan with possible pekvic abcess vss p.e.: nad abd: soft - will review ct scan - await surgry input - other rec as outlined below Addendum entered and electronically signed by ARIANA HOYOS NP 09/09/18 14:53: continue lactulose- titrate to goal of BMs x 2-3/day Original Note: History of Present Illness - Reason for Consult Consult date: 09/09/18 ETOH liver disease Requesting physician: GWEN SHANKS - History of Present Illness Patient is a 43 y/o male with no significant known PMH who was brought to ED per EMS from local motel with AMS and decreased responsiveness. Upon admission, he was found to have leukocytosis, elevated LFTs, and hyperammonemia which has now resolved after receiving lactulose. He underwent a head CT head with negative results, chest x-ray which showed pneumonia, and abd CT revealing peritonitis and pelvic abscess. He was admitted for sepsis and is currently being treated with antibiotics with surgery consult pending. GI has been consulted for ETOH liver disease. This afternoon patient was sitting up in bed w/o acute distress. Noted to be A&O x 3. He admits to loose stools and some mild abd pain. Denies fever, CP, SOB, N/V, jaundice, signs of bleeding, or constipation. No hx or Fhx of liver disease. Drinks 3-4 beers per day. No IV drug use. Past History Past Medical History: No medical history, other (UTO) Past Surgical History: No surgical history, Other (UTO) Social history: single, alcohol abuse Family history: other (UTO) Medications and Allergies Allergies Allergy/AdvReac Type Severity Reaction Status Date / Time Unable to Assess Allergy Unverified 09/08/18 14:11 Active Meds: Active Medications Acetaminophen (Tylenol) 650 mg PO Q4H PRN PRN Reason: Pain MILD(1-3)/Fever >100.5/JEAN Albuterol (Proventil) 2.5 mg IH Q4HRT PRN PRN Reason: Shortness Of Breath Enoxaparin Sodium (Lovenox) 40 mg SUB-Q QDAY@2200 PATRICIA Levofloxacin/Dextrose (Levaquin 750mg/150ml) 750 mg in 150 mls @ 100 mls/hr IV Q24HR [facility]; Protocol Last Admin: 09/09/18 10:00 Dose: 100 mls/hr Documented by: Metronidazole (Flagyl 500 Mg/100 Ml) 500 mg in 100 mls @ 100 mls/hr IV Q8HR PATRICIA; Protocol Last Admin: 09/09/18 14:06 Dose: 100 mls/hr Documented by: Sodium Chloride (Nacl 0.45% 1000 Ml) 1,000 mls @ 100 mls/hr IV DIRECT PATRICIA Ondansetron HCl (Zofran) 4 mg IV Q8H PRN PRN Reason: Nausea And Vomiting Sodium Chloride (Sodium Chloride Flush Syringe 10 Ml) 10 ml IV BID [facility] Last Admin: 09/09/18 10:00 Dose: 10 ml Documented by: Sodium Chloride (Sodium Chloride Flush Syringe 10 Ml) 10 ml IV PRN PRN PRN Reason: LINE FLUSH medications reviewed/updated as required Review of Systems - Review of Systems All systems: negative Gastrointestinal: abdominal pain, other (loose stool) Exam - Constitutional Vital Signs: Temp Pulse Resp BP Pulse Ox 98.0 F 92 H 16 99/64 96 09/09/18 12:12 09/09/18 12:12 09/09/18 12:12 09/09/18 12:12 09/09/18 12:12 General appearance: no acute distress, other (thin appearing) - Respiratory Respiratory: bilateral: CTA (anterior) - Cardiovascular Rhythm: regular Heart Sounds: Present: S1 & S2 - Gastrointestinal General gastrointestinal: Present: soft, tender (slight), non-distended, hypoactive bowel sounds - Neurologic Neurological: alert and oriented x3 - Labs CBC & Chem 7: 09/09/18 05:40 09/09/18 05:40 Lab Results: Laboratory Results - last 24 hr 09/08/18 09/08/18 09/08/18 14:08 14:23 14:23 WBC 26.0 H RBC 4.43 Hgb 13.0 Hct 38.7 MCV 87 MCH 29 MCHC 34 RDW 13.8 Plt Count 192 Add Manual Diff Complete Total Counted 100 Seg Neuts % (Manual) 82.0 H Band Neutrophils % 10.0 Lymphocytes % (Manual) 2.0 L Reactive Lymphs % (Man) 0 Monocytes % (Manual) 6.0 Eosinophils % (Manual) 0 Basophils % (Manual) 0 Metamyelocytes % 0 Myelocytes % 0 Promyelocytes % 0 Blast Cells % 0 Nucleated RBC % Not Reportable Seg Neutrophils # Man 21.3 H Band Neutrophils # 2.6 Lymphocytes # (Manual) 0.5 L Abs React Lymphs (Man) 0.0 Monocytes # (Manual) 1.6 H Eosinophils # (Manual) 0.0 Basophils # (Manual) 0.0 Metamyelocytes # 0.0 Myelocytes # 0.0 Promyelocytes # 0.0 Blast Cells # 0.0 WBC Morphology Not Reportable Hypersegmented Neuts Not Reportable Hyposegmented Neuts Not Reportable Hypogranular Neuts Not Reportable Smudge Cells Not Reportable Toxic Granulation Not Reportable Toxic Vacuolation Not Reportable Dohle Bodies Not Reportable Pelger-Huet Anomaly Not Reportable Deepali Rods Not Reportable Platelet Estimate Not Reportable Clumped Platelets Not Reportable Plt Clumps, EDTA Not Reportable Large Platelets Not Reportable Giant Platelets Not Reportable Platelet Satelliting Not Reportable Plt Morphology Comment Not Reportable RBC Morphology Not Reportable Dimorphic RBCs Not Reportable Polychromasia Not Reportable Hypochromasia Not Reportable Poikilocytosis Not Reportable Anisocytosis Few Microcytosis Not Reportable Macrocytosis Not Reportable Spherocytes Not Reportable Pappenheimer Bodies Not Reportable Sickle Cells Not Reportable Target Cells Not Reportable Tear Drop Cells Not Reportable Ovalocytes Not Reportable Helmet Cells Not Reportable [place] Bodies Not Reportable [place] Rings Not Reportable [place] Cells Not Reportable Bite Cells Not Reportable Crenated Cell Not Reportable Elliptocytes Not Reportable Acanthocytes (Spur) Not Reportable Rouleaux Not Reportable Hemoglobin C Crystals Not Reportable Schistocytes Not Reportable Malaria parasites Not Reportable [place]ist[place] Bodies Not Reportable Hem Pathologist Commnt No Sodium 126 L Potassium 4.5 Chloride 83.3 L Carbon Dioxide 28 Anion Gap 19 BUN 37 H Creatinine 1.8 H Estimated GFR 41 BUN/Creatinine Ratio 21 Glucose 115 H POC Glucose 107 H Lactic Acid Calcium 8.3 L Total Bilirubin 3.50 H AST 55 H ALT 40 Alkaline Phosphatase 221 H Ammonia Troponin T Total Protein 7.5 Albumin 2.8 L Albumin/Globulin Ratio 0.6 Lipase TSH Free T4 Urine Color Urine Turbidity Urine pH Ur Specific Gay Urine Protein Urine Glucose (UA) Urine Ketones Urine Blood Urine Nitrite Urine Bilirubin Urine Urobilinogen Ur Leukocyte Esterase Urine WBC (Auto) Urine RBC (Auto) Salicylates Urine Opiates Screen Urine Methadone Screen Acetaminophen Ur Barbiturates Screen Ur Phencyclidine Scrn Ur Amphetamines Screen U Benzodiazepines Scrn Urine Cocaine Screen U Marijuana (THC) Screen Drugs of Abuse Note Plasma/Serum Alcohol Hepatitis A IgM Ab Hep Bs Antigen Hep B Core IgM Ab Hepatitis C Antibody 09/08/18 09/08/18 09/08/18 14:23 14:23 14:23 WBC RBC Hgb Hct MCV MCH MCHC RDW Plt Count Add Manual Diff Total Counted Seg Neuts % (Manual) Band Neutrophils % Lymphocytes % (Manual) Reactive Lymphs % (Man) Monocytes % (Manual) Eosinophils % (Manual) Basophils % (Manual) Metamyelocytes % Myelocytes % Promyelocytes % Blast Cells % Nucleated RBC % Seg Neutrophils # Man Band Neutrophils # Lymphocytes # (Manual) Abs React Lymphs (Man) Monocytes # (Manual) Eosinophils # (Manual) Basophils # (Manual) Metamyelocytes # Myelocytes # Promyelocytes # Blast Cells # WBC Morphology Hypersegmented Neuts Hyposegmented Neuts Hypogranular Neuts Smudge Cells Toxic Granulation Toxic Vacuolation Dohle Bodies Pelger-Huet Anomaly Deepali Rods Platelet Estimate Clumped Platelets Plt Clumps, EDTA Large Platelets Giant Platelets Platelet Satelliting Plt Morphology Comment RBC Morphology Dimorphic RBCs Polychromasia Hypochromasia Poikilocytosis Anisocytosis Microcytosis Macrocytosis Spherocytes Pappenheimer Bodies Sickle Cells Target Cells Tear Drop Cells Ovalocytes Helmet Cells [place] Bodies [place] Cells Bite Cells Crenated Cell Elliptocytes Acanthocytes (Spur) Rouleaux Hemoglobin C Crystals Schistocytes Malaria parasites Tristian Bodies Hem Pathologist Commnt Sodium Potassium Chloride Carbon Dioxide Anion Gap BUN Creatinine Estimated GFR BUN/Creatinine Ratio Glucose POC Glucose Lactic Acid Calcium Total Bilirubin AST ALT Alkaline Phosphatase Ammonia Troponin T < 0.010 Total Protein Albumin Albumin/Globulin Ratio Lipase 104 H TSH 4.490 H Free T4 Urine Color Urine Turbidity Urine pH Ur Specific Gay Urine Protein Urine Glucose (UA) Urine Ketones Urine Blood Urine Nitrite Urine Bilirubin Urine Urobilinogen Ur Leukocyte Esterase Urine WBC (Auto) Urine RBC (Auto) Salicylates Urine Opiates Screen Urine Methadone Screen Acetaminophen Ur Barbiturates Screen Ur Phencyclidine Scrn Ur Amphetamines Screen U Benzodiazepines Scrn Urine Cocaine Screen U Marijuana (THC) Screen Drugs of Abuse Note Plasma/Serum Alcohol < 0.01 Hepatitis A IgM Ab Hep Bs Antigen Hep B Core IgM Ab Hepatitis C Antibody 09/08/18 09/08/18 09/08/18 14:39 14:39 15:08 WBC RBC Hgb Hct MCV MCH MCHC RDW Plt Count Add Manual Diff Total Counted Seg Neuts % (Manual) Band Neutrophils % Lymphocytes % (Manual) Reactive Lymphs % (Man) Monocytes % (Manual) Eosinophils % (Manual) Basophils % (Manual) Metamyelocytes % Myelocytes % Promyelocytes % Blast Cells % Nucleated RBC % Seg Neutrophils # Man Band Neutrophils # Lymphocytes # (Manual) Abs React Lymphs (Man) Monocytes # (Manual) Eosinophils # (Manual) Basophils # (Manual) Metamyelocytes # Myelocytes # Promyelocytes # Blast Cells # WBC Morphology Hypersegmented Neuts Hyposegmented Neuts Hypogranular Neuts Smudge Cells Toxic Granulation Toxic Vacuolation Dohle Bodies Pelger-Huet Anomaly Deepali Rods Platelet Estimate Clumped Platelets Plt Clumps, EDTA Large Platelets Giant Platelets Platelet Satelliting Plt Morphology Comment RBC Morphology Dimorphic RBCs Polychromasia Hypochromasia Poikilocytosis Anisocytosis Microcytosis Macrocytosis Spherocytes Pappenheimer Bodies Sickle Cells Target Cells Tear Drop Cells Ovalocytes Helmet Cells [place] Bodies [place] Cells Bite Cells Crenated Cell Elliptocytes Acanthocytes (Spur) Rouleaux Hemoglobin C Crystals Schistocytes Malaria parasites [place]istian Bodies Hem Pathologist Commnt Sodium Potassium Chloride Carbon Dioxide Anion Gap BUN Creatinine Estimated GFR BUN/Creatinine Ratio Glucose POC Glucose Lactic Acid 2.70 H* Calcium Total Bilirubin AST ALT Alkaline Phosphatase Ammonia Troponin T Total Protein Albumin Albumin/Globulin Ratio Lipase TSH Free T4 Urine Color Brianne Urine Turbidity Clear Urine pH 5.0 Ur Specific Gay 1.011 Urine Protein <15 mg/dl Urine Glucose (UA) Neg Urine Ketones Tr Urine Blood Neg Urine Nitrite Neg Urine Bilirubin Neg Urine Urobilinogen 2.0 Ur Leukocyte Esterase Neg Urine WBC (Auto) 1.0 Urine RBC (Auto) < 1.0 Salicylates Urine Opiates Screen Presumptive negative Urine Methadone Screen Presumptive negative Acetaminophen Ur Barbiturates Screen Presumptive negative Ur Phencyclidine Scrn Presumptive negative Ur Amphetamines Screen Presumptive negative U Benzodiazepines Scrn Presumptive negative Urine Cocaine Screen Presumptive negative U Marijuana (THC) Screen Presumptive negative Drugs of Abuse Note Disclamer Plasma/Serum Alcohol Hepatitis A IgM Ab Hep Bs Antigen Hep B Core IgM Ab Hepatitis C Antibody 09/08/18 09/08/18 09/08/18 15:08 16:10 16:10 WBC RBC Hgb Hct MCV MCH MCHC RDW Plt Count Add Manual Diff Total Counted Seg Neuts % (Manual) Band Neutrophils % Lymphocytes % (Manual) Reactive Lymphs % (Man) Monocytes % (Manual) Eosinophils % (Manual) Basophils % (Manual) Metamyelocytes % Myelocytes % Promyelocytes % Blast Cells % Nucleated RBC % Seg Neutrophils # Man Band Neutrophils # Lymphocytes # (Manual) Abs React Lymphs (Man) Monocytes # (Manual) Eosinophils # (Manual) Basophils # (Manual) Metamyelocytes # Myelocytes # Promyelocytes # Blast Cells # WBC Morphology Hypersegmented Neuts Hyposegmented Neuts Hypogranular Neuts Smudge Cells Toxic Granulation Toxic Vacuolation Dohle Bodies Pelger-Huet Anomaly Deepali Rods Platelet Estimate Clumped Platelets Plt Clumps, EDTA Large Platelets Giant Platelets Platelet Satelliting Plt Morphology Comment RBC Morphology Dimorphic RBCs Polychromasia Hypochromasia Poikilocytosis Anisocytosis Microcytosis Macrocytosis Spherocytes Pappenheimer Bodies Sickle Cells Target Cells Tear Drop Cells Ovalocytes Helmet Cells [place] Bodies [place] Cells Bite Cells Crenated Cell Elliptocytes Acanthocytes (Spur) Rouleaux Hemoglobin C Crystals Schistocytes Malaria parasites [place]ist[place] Bodies Hem Pathologist Commnt Sodium Potassium Chloride Carbon Dioxide Anion Gap BUN Creatinine Estimated GFR BUN/Creatinine Ratio Glucose POC Glucose Lactic Acid 2.40 H* Calcium Total Bilirubin AST ALT Alkaline Phosphatase Ammonia 220.0 H Troponin T Total Protein Albumin Albumin/Globulin Ratio Lipase TSH Free T4 Urine Color Urine Turbidity Urine pH Ur Specific Gay Urine Protein Urine Glucose (UA) Urine Ketones Urine Blood Urine Nitrite Urine Bilirubin Urine Urobilinogen Ur Leukocyte Esterase Urine WBC (Auto) Urine RBC (Auto) Salicylates < 0.3 L Urine Opiates Screen Urine Methadone Screen Acetaminophen Ur Barbiturates Screen Ur Phencyclidine Scrn Ur Amphetamines Screen U Benzodiazepines Scrn Urine Cocaine Screen U Marijuana (THC) Screen Drugs of Abuse Note Plasma/Serum Alcohol Hepatitis A IgM Ab Hep Bs Antigen Hep B Core IgM Ab Hepatitis C Antibody 09/08/18 09/08/18 09/08/18 16:10 16:10 16:10 WBC RBC Hgb Hct MCV MCH MCHC RDW Plt Count Add Manual Diff Total Counted Seg Neuts % (Manual) Band Neutrophils % Lymphocytes % (Manual) Reactive Lymphs % (Man) Monocytes % (Manual) Eosinophils % (Manual) Basophils % (Manual) Metamyelocytes % Myelocytes % Promyelocytes % Blast Cells % Nucleated RBC % Seg Neutrophils # Man Band Neutrophils # Lymphocytes # (Manual) Abs React Lymphs (Man) Monocytes # (Manual) Eosinophils # (Manual) Basophils # (Manual) Metamyelocytes # Myelocytes # Promyelocytes # Blast Cells # WBC Morphology Hypersegmented Neuts Hyposegmented Neuts Hypogranular Neuts Smudge Cells Toxic Granulation Toxic Vacuolation Dohle Bodies Pelger-Huet Anomaly Deepali Rods Platelet Estimate Clumped Platelets Plt Clumps, EDTA Large Platelets Giant Platelets Platelet Satelliting Plt Morphology Comment RBC Morphology Dimorphic RBCs Polychromasia Hypochromasia Poikilocytosis Anisocytosis Microcytosis Macrocytosis Spherocytes Pappenheimer Bodies Sickle Cells Target Cells Tear Drop Cells Ovalocytes Helmet Cells [place] Bodies [place] Cells Bite Cells Crenated Cell Elliptocytes Acanthocytes (Spur) Rouleaux Hemoglobin C Crystals Schistocytes Malaria parasites [place]istian Bodies Hem Pathologist Commnt Sodium Potassium Chloride Carbon Dioxide Anion Gap BUN Creatinine Estimated GFR BUN/Creatinine Ratio Glucose POC Glucose Lactic Acid Calcium Total Bilirubin AST ALT Alkaline Phosphatase Ammonia Troponin T Total Protein Albumin Albumin/Globulin Ratio Lipase TSH Free T4 0.93 Urine Color Urine Turbidity Urine pH Ur Specific Gay Urine Protein Urine Glucose (UA) Urine Ketones Urine Blood Urine Nitrite Urine Bilirubin Urine Urobilinogen Ur Leukocyte Esterase Urine WBC (Auto) Urine RBC (Auto) Salicylates Urine Opiates Screen Urine Methadone Screen Acetaminophen < 5.0 L Ur Barbiturates Screen Ur Phencyclidine Scrn Ur Amphetamines Screen U Benzodiazepines Scrn Urine Cocaine Screen U Marijuana (THC) Screen Drugs of Abuse Note Plasma/Serum Alcohol Hepatitis A IgM Ab Non-reactive Hep Bs Antigen Non-reactive Hep B Core IgM Ab Non-reactive Hepatitis C Antibody Non-reactive 09/08/18 09/08/18 09/08/18 19:08 21:28 23:08 WBC RBC Hgb Hct MCV MCH MCHC RDW Plt Count Add Manual Diff Total Counted Seg Neuts % (Manual) Band Neutrophils % Lymphocytes % (Manual) Reactive Lymphs % (Man) Monocytes % (Manual) Eosinophils % (Manual) Basophils % (Manual) Metamyelocytes % Myelocytes % Promyelocytes % Blast Cells % Nucleated RBC % Seg Neutrophils # Man Band Neutrophils # Lymphocytes # (Manual) Abs React Lymphs (Man) Monocytes # (Manual) Eosinophils # (Manual) Basophils # (Manual) Metamyelocytes # Myelocytes # Promyelocytes # Blast Cells # WBC Morphology Hypersegmented Neuts Hyposegmented Neuts Hypogranular Neuts Smudge Cells Toxic Granulation Toxic Vacuolation Dohle Bodies Pelger-Huet Anomaly Deepali Rods Platelet Estimate Clumped Platelets Plt Clumps, EDTA Large Platelets Giant Platelets Platelet Satelliting Plt Morphology Comment RBC Morphology Dimorphic RBCs Polychromasia Hypochromasia Poikilocytosis Anisocytosis Microcytosis Macrocytosis Spherocytes Pappenheimer Bodies Sickle Cells Target Cells Tear Drop Cells Ovalocytes Helmet Cells [place] Bodies [place] Cells Bite Cells Crenated Cell Elliptocytes Acanthocytes (Spur) Rouleaux Hemoglobin C Crystals Schistocytes Malaria parasites Tristian Bodies Hem Pathologist Commnt Sodium Potassium Chloride Carbon Dioxide Anion Gap BUN Creatinine Estimated GFR BUN/Creatinine Ratio Glucose POC Glucose Lactic Acid 1.70 1.80 1.80 Calcium Total Bilirubin AST ALT Alkaline Phosphatase Ammonia Troponin T Total Protein Albumin Albumin/Globulin Ratio Lipase TSH Free T4 Urine Color Urine Turbidity Urine pH Ur Specific Gay Urine Protein Urine Glucose (UA) Urine Ketones Urine Blood Urine Nitrite Urine Bilirubin Urine Urobilinogen Ur Leukocyte Esterase Urine WBC (Auto) Urine RBC (Auto) Salicylates Urine Opiates Screen Urine Methadone Screen Acetaminophen Ur Barbiturates Screen Ur Phencyclidine Scrn Ur Amphetamines Screen U Benzodiazepines Scrn Urine Cocaine Screen U Marijuana (THC) Screen Drugs of Abuse Note Plasma/Serum Alcohol Hepatitis A IgM Ab Hep Bs Antigen Hep B Core IgM Ab Hepatitis C Antibody 09/09/18 09/09/18 09/09/18 05:40 05:40 05:40 WBC 27.1 H RBC 3.88 Hgb 11.3 L Hct 34.2 L MCV 88 MCH 29 MCHC 33 RDW 13.6 Plt Count 191 Add Manual Diff Complete Total Counted 100 Seg Neuts % (Manual) 81.0 H Band Neutrophils % 10.0 Lymphocytes % (Manual) 0 L Reactive Lymphs % (Man) 0 Monocytes % (Manual) 6.0 Eosinophils % (Manual) 0 Basophils % (Manual) 0 Metamyelocytes % 1.0 Myelocytes % 2.0 Promyelocytes % 0 Blast Cells % 0 Nucleated RBC % Not Reportable Seg Neutrophils # Man 22.0 H Band Neutrophils # 2.7 Lymphocytes # (Manual) 0.0 L Abs React Lymphs (Man) 0.0 Monocytes # (Manual) 1.6 H Eosinophils # (Manual) 0.0 Basophils # (Manual) 0.0 Metamyelocytes # 0.3 Myelocytes # 0.5 Promyelocytes # 0.0 Blast Cells # 0.0 WBC Morphology Not Reportable Hypersegmented Neuts Not Reportable Hyposegmented Neuts Not Reportable Hypogranular Neuts Not Reportable Smudge Cells Not Reportable Toxic Granulation Not Reportable Toxic Vacuolation Not Reportable Dohle Bodies Not Reportable Pelger-Huet Anomaly Not Reportable Deepali Rods Not Reportable Platelet Estimate Consistent w auto Clumped Platelets Not Reportable Plt Clumps, EDTA Not Reportable Large Platelets Not Reportable Giant Platelets Not Reportable Platelet Satelliting Not Reportable Plt Morphology Comment Not Reportable RBC Morphology Not Reportable Dimorphic RBCs Not Reportable Polychromasia Not Reportable Hypochromasia 1+ Poikilocytosis Not Reportable Anisocytosis Not Reportable Microcytosis Few Macrocytosis Not Reportable Spherocytes Not Reportable Pappenheimer Bodies Not Reportable Sickle Cells Not Reportable Target Cells 1+ Tear Drop Cells Not Reportable Ovalocytes Not Reportable Helmet Cells Not Reportable [place] Bodies Not Reportable [place] Rings Not Reportable [place] Cells Not Reportable Bite Cells Not Reportable Crenated Cell Not Reportable Elliptocytes Not Reportable Acanthocytes (Spur) Not Reportable Rouleaux Not Reportable Hemoglobin C Crystals Not Reportable Schistocytes Not Reportable Malaria parasites Not Reportable [place] Bodies Not Reportable Hem Pathologist Commnt No Sodium 135 L D Potassium 3.4 L D Chloride 96.7 L Carbon Dioxide 24 Anion Gap 18 BUN 23 H Creatinine 1.3 Estimated GFR 60 BUN/Creatinine Ratio 18 Glucose 95 POC Glucose Lactic Acid Calcium 7.9 L Total Bilirubin AST ALT Alkaline Phosphatase Ammonia 29.0 Troponin T Total Protein Albumin Albumin/Globulin Ratio Lipase TSH Free T4 Urine Color Urine Turbidity Urine pH Ur Specific Gay Urine Protein Urine Glucose (UA) Urine Ketones Urine Blood Urine Nitrite Urine Bilirubin Urine Urobilinogen Ur Leukocyte Esterase Urine WBC (Auto) Urine RBC (Auto) Salicylates Urine Opiates Screen Urine Methadone Screen Acetaminophen Ur Barbiturates Screen Ur Phencyclidine Scrn Ur Amphetamines Screen U Benzodiazepines Scrn Urine Cocaine Screen U Marijuana (THC) Screen Drugs of Abuse Note Plasma/Serum Alcohol Hepatitis A IgM Ab Hep Bs Antigen Hep B Core IgM Ab Hepatitis C Antibody 09/09/18 05:40 WBC RBC Hgb Hct MCV MCH MCHC RDW Plt Count Add Manual Diff Total Counted Seg Neuts % (Manual) Band Neutrophils % Lymphocytes % (Manual) Reactive Lymphs % (Man) Monocytes % (Manual) Eosinophils % (Manual) Basophils % (Manual) Metamyelocytes % Myelocytes % Promyelocytes % Blast Cells % Nucleated RBC % Seg Neutrophils # Man Band Neutrophils # Lymphocytes # (Manual) Abs React Lymphs (Man) Monocytes # (Manual) Eosinophils # (Manual) Basophils # (Manual) Metamyelocytes # Myelocytes # Promyelocytes # Blast Cells # WBC Morphology Hypersegmented Neuts Hyposegmented Neuts Hypogranular Neuts Smudge Cells Toxic Granulation Toxic Vacuolation Dohle Bodies Pelger-Huet Anomaly Deepali Rods Platelet Estimate Clumped Platelets Plt Clumps, EDTA Large Platelets Giant Platelets Platelet Satelliting Plt Morphology Comment RBC Morphology Dimorphic RBCs Polychromasia Hypochromasia Poikilocytosis Anisocytosis Microcytosis Macrocytosis Spherocytes Pappenheimer Bodies Sickle Cells Target Cells Tear Drop Cells Ovalocytes Helmet Cells [place] Bodies [place] Cells Bite Cells Crenated Cell Elliptocytes Acanthocytes (Spur) Rouleaux Hemoglobin C Crystals Schistocytes Malaria parasites [place]ist[place] Bodies Hem Pathologist Commnt Sodium Potassium Chloride Carbon Dioxide Anion Gap BUN Creatinine Estimated GFR BUN/Creatinine Ratio Glucose POC Glucose Lactic Acid 1.40 Calcium Total Bilirubin AST ALT Alkaline Phosphatase Ammonia Troponin T Total Protein Albumin Albumin/Globulin Ratio Lipase TSH Free T4 Urine Color Urine Turbidity Urine pH Ur Specific Gay Urine Protein Urine Glucose (UA) Urine Ketones Urine Blood Urine Nitrite Urine Bilirubin Urine Urobilinogen Ur Leukocyte Esterase Urine WBC (Auto) Urine RBC (Auto) Salicylates Urine Opiates Screen Urine Methadone Screen Acetaminophen Ur Barbiturates Screen Ur Phencyclidine Scrn Ur Amphetamines Screen U Benzodiazepines Scrn Urine Cocaine Screen U Marijuana (THC) Screen Drugs of Abuse Note Plasma/Serum Alcohol Hepatitis A IgM Ab Hep Bs Antigen Hep B Core IgM Ab Hepatitis C Antibody Assessment and Plan 1.hepatic encephalopathy? 2.ETOH abuse 3.elevated LFTs 4.sepsis 2/2 pelvic abscess and peritonitis 5.pneumonia -afebrile -WBC 27.1-trending up -H/H 11.3/34.2-no active signs of bleeding -plt 191 -T.ife[place] 3.50, AST 55, ALT 40, alk phos 221 -ammonia on admission 220- now WNL (29) after lactulose -hepatitis panel and toxicology screen negative -abd CT showed diffuse peritonitis, plevic abscess, diffusely dilated small bowel w/ diffuse wall thickening (reactive vs ileus), and heterogeneous low attenuation of the liver (fatty infiltration and/or hepatocellular disease) -abd U/S pending -surgery consult pending -etiology-encephalopathy likely multifactorial 2/2 sepsis and possible liver disease; now improved -recommend ID consult -Keep NPO for now -INR in am -continue empiric antibiotics -continue to trend labs and supportive care -alcohol cessation discussed with patient-monitor for signs of withdrawal -electrolyte management per primary team -further recommendations to follow pending surgery consult and above results
--- NOTE | 2018-09-09 16:32 | XRay Report ---
FINAL REPORT EXAM: XR CHEST ROUTINE 2V HISTORY: fever TECHNIQUE: PA and lateral views of the chest Comparison: CT abdomen and pelvis dated September 08, 2018 and chest x-ray dated September 08, 2018 FINDINGS: There is slightly improved aeration of both lungs with persistent bilateral hypoinflation. There continues to be areas of pulmonary consolidation in both lung bases. Probable atelectasis. There is no evidence of pneumothorax. There is blunting of the left costophrenic angle which may represent a small left pleural fluid colle ction. The cardiomediastinal silhouette is normal in appearance. The bony structures are unremarkable. IMPRESSION: 1. Slightly improved aeration both lungs with persistent pulmonary consolidation, probable atelectasi s, both lung bases and possible small left pleural fluid collection.
--- NOTE | 2018-09-09 17:12 | Ultrasound Report ---
FINAL REPORT EXAM: US ABDOMEN LIMITED HISTORY: Liver disease TECHNIQUE: Grayscale and color-flow imaging of the right upper quadrant was performed. Comparison: CT abdomen and pelvis dated September 08, 2018 FINDINGS: Pancreas: Not well visualized due to artifact. Liver: Demonstrates heterogeneous echogenicity with coarsened echotexture. This can be seen with hepa tocellular disease. Right kidney: Measures 9.3 centimeters in the maximal craniocaudal dimension. There is no demonstrati on of hydronephrosis, renal calculi or solid mass. There is an approximately 7 millimeter cyst in the lower pole. Gallbladder: Moderately distended. There is increased thickness of the gallbladder wall (4 millimeter s). There is no demonstration of gallstones. Common bile duct: Normal caliber (4.5 millimeters). Free fluid is demonstrated in the right upper quadrant. Upper abdominal aorta: Normal caliber (2 centimeters). IMPRESSION: 1. Findings suggestive of hepatocellular disease. 2. Mild increased thickness of the gallbladder wall. This is a nonspecific finding. 3. The pancreas is not well visualized. 4. Free fluid is demonstrated in the right upper quadrant.
--- NOTE | 2018-09-09 17:18 | Consultation ---
History of Present Illness Consult date: 09/09/18 Reason for consult: abdominal pain Requesting physician: GWEN SHANKS Chief complaint: he is hungry - History of present illness History of present illness: 43yo M presented with AMS to the ED. he had been living at a motel recently. Someone from the motel said that he had been sick for a number of days. Also I report that he is a chronic drinker. General surgery is asked to see the patient due to concerns of a pelvic abscess. Patient does not recall any of the recent events, or how he got to the hospital. He doesn't know why he came to the hospital. He has no areas of infection on his body. He reports that maybe he has a little bit of left sided abdominal pain when asked if his abdomen hurts. His main issue is that he is hungry and he has iron deficiency anemia. He has no other complaints. Past History Past Medical History: No medical history, other (UTO) Past Surgical History: No surgical history, Other (UTO) Social history: single, alcohol abuse Family history: other (UTO) Medications and Allergies Allergies Allergy/AdvReac Type Severity Reaction Status Date / Time Unable to Assess Allergy Unverified 09/08/18 14:11 Active Meds: Active Medications Acetaminophen (Tylenol) 650 mg PO Q4H PRN PRN Reason: Pain MILD(1-3)/Fever >100.5/JEAN Albuterol (Proventil) 2.5 mg IH Q4HRT PRN PRN Reason: Shortness Of Breath Enoxaparin Sodium (Lovenox) 40 mg SUB-Q QDAY@2200 PATRICIA Levofloxacin/Dextrose (Levaquin 750mg/150ml) 750 mg in 150 mls @ 100 mls/hr IV Q24HR PATRICIA; Protocol Last Admin: 09/09/18 10:00 Dose: 100 mls/hr Documented by: Metronidazole (Flagyl 500 Mg/100 Ml) 500 mg in 100 mls @ 100 mls/hr IV Q8HR PATRICIA; Protocol Last Admin: 09/09/18 14:06 Dose: 100 mls/hr Documented by: Sodium Chloride (Nacl 0.45% 1000 Ml) 1,000 mls @ 100 mls/hr IV DIRECT PATRICIA Ondansetron HCl (Zofran) 4 mg IV Q8H PRN PRN Reason: Nausea And Vomiting Sodium Chloride (Sodium Chloride Flush Syringe 10 Ml) 10 ml IV BID PATRICIA Last Admin: 09/09/18 10:00 Dose: 10 ml Documented by: Sodium Chloride (Sodium Chloride Flush Syringe 10 Ml) 10 ml IV PRN PRN PRN Reason: LINE FLUSH Review of Systems - Constitutional no fever, no chills - Cardiovascular no chest pain - Respiratory no cough, no shortness of breath - Gastrointestinal abdominal pain (maybe a little on the left side), no nausea, no vomiting - Genitourinary no dysuria - Muskuloskeletal no low back pain - Integumentary no wounds Exam Vital Signs Pulse Ox 97 09/08/18 14:00 - General physical appearance Positive: no distress, no pain, other (confused, but pleasant. Able to answer questions. Awake. comfortable. ) - Eyes Positive: PERRL - Respiratory Positive: normal expansion, normal respiratory effort, clear to auscultation - Cardiovascular Rhythm: regular - Abdomen Abdomen: Present: soft, bowel sounds hypoactive. Absent: tender, distended, masses, rebound, guarding, rigid, wound, surgical scars - Integumentary no rash, no growths, no abnormal pigmentation - Psychiatric Psychiatric: appropriate mood/affect, cooperative Results - Labs 09/09/18 05:40 09/09/18 05:40 Abnormal lab results 09/09/18 09/09/18 Range/Units 05:40 05:40 WBC 27.1 H (4.5-11.0) K/mm3 Hgb 11.3 L (11.8-15.2) gm/dl Hct 34.2 L (35.5-45.6) % Seg Neuts % (Manual) 81.0 H (40.0-70.0) % Lymphocytes % (Manual) 0 L (13.4-35.0) % Seg Neutrophils # Man 22.0 H (1.8-7.7) K/mm3 Lymphocytes # (Manual) 0.0 L (1.2-5.4) K/mm3 Monocytes # (Manual) 1.6 H (0.0-0.8) K/mm3 Sodium 135 L D (137-145) mmol/L Potassium 3.4 L D (3.6-5.0) mmol/L Chloride 96.7 L (98-107) mmol/L BUN 23 H (9-20) mg/dL Calcium 7.9 L (8.4-10.2) mg/dL Diabetes panel 09/09/18 Range/Units 05:40 Sodium 135 L D (137-145) mmol/L Potassium 3.4 L D (3.6-5.0) mmol/L Chloride 96.7 L (98-107) mmol/L Carbon Dioxide 24 (22-30) mmol/L BUN 23 H (9-20) mg/dL Creatinine 1.3 (0.8-1.5) mg/dL Glucose 95 (75-100) mg/dL Calcium 7.9 L (8.4-10.2) mg/dL Calcium panel 09/09/18 Range/Units 05:40 Calcium 7.9 L (8.4-10.2) mg/dL Pituitary panel 09/09/18 Range/Units 05:40 Sodium 135 L D (137-145) mmol/L Potassium 3.4 L D (3.6-5.0) mmol/L Chloride 96.7 L (98-107) mmol/L Carbon Dioxide 24 (22-30) mmol/L BUN 23 H (9-20) mg/dL Creatinine 1.3 (0.8-1.5) mg/dL Glucose 95 (75-100) mg/dL Calcium 7.9 L (8.4-10.2) mg/dL Adrenal panel 09/09/18 Range/Units 05:40 Sodium 135 L D (137-145) mmol/L Potassium 3.4 L D (3.6-5.0) mmol/L Chloride 96.7 L (98-107) mmol/L Carbon Dioxide 24 (22-30) mmol/L BUN 23 H (9-20) mg/dL Creatinine 1.3 (0.8-1.5) mg/dL Glucose 95 (75-100) mg/dL Calcium 7.9 L (8.4-10.2) mg/dL - Imaging CT scan - abdomen: image reviewed CT scan - pelvis: image reviewed (report not available on the computer) Assessment and Plan - Patient Problems (1) Pelvic abscess in male Current Visit: Yes Status: Acute Plan to address problem: Pt stable. His overall picture is a bit confusing. He has a very high white count, and a CT scan that shows a lot of inflammatory changes as well as two if not a few areas of fluid collection. However, his vital signs are fine and his abdominal exam is unremarkable. I would have expected him to have a very tender abdomen and have issues with nausea and/or vomiting. At this point, I would continue with the IV antibiotics. This CT scan images suggest that the inflammation has been going on for a while based on the thickened bowel wall. Based on his clinically exam, he does not appear to need an urgent intervention. Most likely, everything is stuck together inside, which puts him at risk for bowel injury should we try to do anything surgically. I will speak to interventional radiology to see if they would be able to drain the pelvic collection. Will follow along. Please call with questions. Time=60min
[2018-09-09] MEDS: NACL 0.45% 1000 ML 1,000 ML IV SCH (20:29)
[2018-09-09] MEDS ORDERED: LOVENOX SUB-Q SCH (22:00)
[2018-09-10] MEDS: NACL 0.45% 1000 ML 1,000 ML IV SCH (06:10)
[2018-09-10] MEDS: FLAGYL 500 MG/100 ML 500 MG/100 ML BAG IV SCH ×2 (06:12→14:40)
[2018-09-10 06:35] LABS: Alanine Aminotransferase 22 units/L (7-56); Albumin 1.9 g/dL (3.9-5); BUN/Creatinine Ratio 16; Blood Urea Nitrogen 11 mg/dL (9-20); Calcium 7.5 mg/dL (8.4-10.2); Hemolysis Index 11
--- NOTE | 2018-09-10 09:09 | Progress Note ---
Assessment and Plan - Patient Problems (1) Pelvic abscess in male Current Visit: Yes Status: Acute Plan to address problem: Pt stable. Patient remains perfectly stable. Vital signs are normal. He tolerated a clear liquid diet last night. Had a bowel movement. Again, despite the CT appearance and his white count, he has no signs of clinical peritonitis. I have spoken with Dr. Bay from interventional radiology. Patient is scheduled for drainage of the pelvic collection. We did a 2 physician consent as the patient still seems to have a slightly altered mental state. Once this procedure is done, patient may have a regular diet. A side note, patient reports that he has friends and family in [place], but does not have a phone number for them. He has been living in a friend's motel and he works in a local gas station. Will follow along. Please call with questions. Time=10min Subjective Date of service: 09/10/18 Patient Reports: Positive: no new complaints, tolerating liquids well, bowel movement. Negative: nausea, vomiting Objective Vital Signs - 12hr 09/09/18 09/09/18 09/10/18 21:21 22:00 04:35 Temperature 97.9 F 97.8 F Pulse Rate 98 H 81 Respiratory 20 20 Rate Blood Pressure 104/70 106/60 O2 Sat by Pulse 97 98 99 Oximetry 09/10/18 08:35 Temperature Pulse Rate Respiratory Rate Blood Pressure O2 Sat by Pulse 99 Oximetry - General physical appearance no distress, no pain, other (awake and alert; appears a little slow in cogn ition) - Eyes normal occular movement - Respiratory normal expansion, normal respiratory effort - Abdomen soft, not tender, not distended, not guarding, not rigid - Integumentary no rash, no growths, no abnormal pigmentation - Labs 09/09/18 05:40 09/10/18 05:48 Diabetes panel 09/10/18 Range/Units 05:48 Sodium 128 L D (137-145) mmol/L Potassium 3.2 L (3.6-5.0) mmol/L Chloride 96.9 L (98-107) mmol/L Carbon Dioxide 22 (22-30) mmol/L BUN 11 (9-20) mg/dL Creatinine 0.7 L (0.8-1.5) mg/dL Glucose 86 (75-100) mg/dL Calcium 7.5 L (8.4-10.2) mg/dL AST 27 (5-40) units/L ALT 22 (7-56) units/L Alkaline Phosphatase 128 (35-129) units/L Total Protein 6.0 L (6.3-8.2) g/dL Albumin 1.9 L (3.9-5) g/dL Calcium panel 09/10/18 Range/Units 05:48 Calcium 7.5 L (8.4-10.2) mg/dL Albumin 1.9 L (3.9-5) g/dL Pituitary panel 09/10/18 Range/Units 05:48 Sodium 128 L D (137-145) mmol/L Potassium 3.2 L (3.6-5.0) mmol/L Chloride 96.9 L (98-107) mmol/L Carbon Dioxide 22 (22-30) mmol/L BUN 11 (9-20) mg/dL Creatinine 0.7 L (0.8-1.5) mg/dL Glucose 86 (75-100) mg/dL Calcium 7.5 L (8.4-10.2) mg/dL Adrenal panel 09/10/18 Range/Units 05:48 Sodium 128 L D (137-145) mmol/L Potassium 3.2 L (3.6-5.0) mmol/L Chloride 96.9 L (98-107) mmol/L Carbon Dioxide 22 (22-30) mmol/L BUN 11 (9-20) mg/dL Creatinine 0.7 L (0.8-1.5) mg/dL Glucose 86 (75-100) mg/dL Calcium 7.5 L (8.4-10.2) mg/dL Total Bilirubin 2.10 H (0.1-1.2) mg/dL AST 27 (5-40) units/L ALT 22 (7-56) units/L Alkaline Phosphatase 128 (35-129) units/L Total Protein 6.0 L (6.3-8.2) g/dL Albumin 1.9 L (3.9-5) g/dL
--- NOTE | 2018-09-10 09:22 | Consultation ---
History of Present Illness - Reason for Consult Consult date: 09/10/18 Pelvic Abscess - History of Present Illness Patient with a history of altered mental status found down who on CT scan was n oted to have rim-enhancing fluid collection within his pelvis. Additionally, the patient has perihepatic fluid. History of alcohol abuse. Past History Past Medical History: No medical history, other (UTO) Past Surgical History: No surgical history, Other (UTO) Social history: single, alcohol abuse Family history: other (UTO) Medications and Allergies Allergies Allergy/AdvReac Type Severity Reaction Status Date / Time Unable to Assess Allergy Unverified 09/08/18 14:11 Active Meds: Active Medications Acetaminophen (Tylenol) 650 mg PO Q4H PRN PRN Reason: Pain MILD(1-3)/Fever >100.5/JEAN Albuterol (Proventil) 2.5 mg IH Q4HRT PRN PRN Reason: Shortness Of Breath Levofloxacin/Dextrose (Levaquin 750mg/150ml) 750 mg in 150 mls @ 100 mls/hr IV Q24HR PATRICIA; Protocol Last Admin: 09/09/18 10:00 Dose: 100 mls/hr Documented by: Metronidazole (Flagyl 500 Mg/100 Ml) 500 mg in 100 mls @ 100 mls/hr IV Q8HR PATRICIA; Protocol Last Admin: 09/10/18 06:12 Dose: 100 mls/hr Documented by: Sodium Chloride (Nacl 0.45% 1000 Ml) 1,000 mls @ 100 mls/hr IV DIRECT PATRICIA Last Admin: 09/10/18 06:10 Dose: 100 mls/hr Documented by: Ondansetron HCl (Zofran) 4 mg IV Q8H PRN PRN Reason: Nausea And Vomiting Sodium Chloride (Sodium Chloride Flush Syringe 10 Ml) 10 ml IV BID PATRICIA Last Admin: 09/09/18 22:15 Dose: 10 ml Documented by: Sodium Chloride (Sodium Chloride Flush Syringe 10 Ml) 10 ml IV PRN PRN PRN Reason: LINE FLUSH Review of Systems All systems: negative Exam - Constitutional Vitals: Temp Pulse Resp BP Pulse Ox 97.8 F 81 20 106/60 99 09/10/18 04:35 09/10/18 04:35 09/10/18 04:35 09/10/18 04:35 09/10/18 08:35 General appearance: Present: no acute distress - EENT Eyes: Present: EOM intact ENT: hearing intact - Neck Neck: Present: supple - Respiratory Respiratory effort: normal - Abdominal General gastrointestinal: Present: soft Male genitourinary: Present: deferred - Rectal Rectal Exam: deferred - Psychiatric Psychiatric: cooperative Results - Labs CBC & Chem 7: 09/09/18 05:40 09/10/18 05:48 Labs: Abnormal lab results 09/10/18 Range/Units 05:48 Sodium 128 L D (137-145) mmol/L Potassium 3.2 L (3.6-5.0) mmol/L Chloride 96.9 L (98-107) mmol/L Creatinine 0.7 L (0.8-1.5) mg/dL Calcium 7.5 L (8.4-10.2) mg/dL Total Bilirubin 2.10 H (0.1-1.2) mg/dL Total Protein 6.0 L (6.3-8.2) g/dL Albumin 1.9 L (3.9-5) g/dL - Imaging and Cardiology CT scan - abdomen: report reviewed, image reviewed Assessment and Plan Patient will be brought down for CT-guided placement of a drainage catheter within the pelvic abscess. Samples will be sent for culture.
[2018-09-10 09:55] LABS: Hematocrit 33.1 % (35.5-45.6); Mean Corpuscular HGB Conc 33 % (32-34); Mean Corpuscular Volume 88 fl (84-94); Platelet Count 189 K/mm3 (140-440); Red Blood Count 3.74 M/mm3 (3.65-5.03); Red Cell Distribution Width 13.6 % (13.2-15.2)
[2018-09-10 10:08] LABS: INR 1.27 (0.87-1.13)
[2018-09-10] MEDS ORDERED: SUBLIMAZE IV ONE (10:09)
[2018-09-10] MEDS ORDERED: VERSED IV ONE (10:09)
[2018-09-10 10:43] LABS: Basophils % (Manual) 0 % (0.0-1.8); Myelocytes # (Manual) 0.8 K/mm3; Total Cells Counted 100
[2018-09-10 10:44] LABS: Hypochromasia Few; Platelet Estimate Consistent w Auto; Poikilocytosis 1+; Target Cells 1+
--- NOTE | 2018-09-10 11:35 | Cat Scan Report ---
Exam: CT-guided placement of drainage catheter Clinical indication: Patient with pelvic and abdominal abscess of unknown etiology Date: 09/10/2018 Procedure: Following explanation of the risks, benefits and alternatives; written informed consent was obtained. Patient was brought to the CT suite and placed in prone position on the gantry. Initial hospice art therapist images of the abdomen and pelvis were performed an appropriate access site was chosen along the right gluteus. The patient's lower back was prepped and draped in usual sterile fashion. 1% lidocaine was used for anesthesia. Using intermittent CT guidance, an 11 cm 18-gauge trocar needle was advanced to the central aspect of the fluid collection. There is prompt return of purulent fluid a sample was collected for laboratory analysis. A 0.035 guidewire was advanced through the needle and coiled within the fluid collection. The needle was removed and following serial dilation over the guidewire, an 8 Gambian pigtail drainage catheter was placed over the guidewire. CT images were obtained to document appropriate positioning of. The guidewire was removed. The pigtail was formed and a total of 50 mL's of purulent fluid was aspirated out. The catheter was securely fastened to the skin surface using 2-0 silk suture and a Stayfix device. The catheter was placed to SARAVANAN bulb drainage. Sterile dressings were then applied. The patient tolerated the procedure well. There were no immediate post procedure complications. Conscious sedation was performed under the guidance of radiologic nursing. Continuous cardiopulmonary monitoring was utilized. Impression: CT-guided placement of 8 Gambian drainage catheter into pelvic abscess with aspiration of 50 mL's of purulent fluid. A sample was sent for laboratory analysis.
[2018-09-10] MEDS: LEVAQUIN 750MG/150ML 750 MG/150 ML BAG IV SCH (11:49)
[2018-09-10] MEDS: SODIUM CHLORIDE FLUSH SYRINGE 10 ML IV SCH ×2 (11:54→22:11)
--- NOTE | 2018-09-10 12:10 | Gastroenterology Progress Note ---
Addendum entered and electronically signed by YANNI PORTILLO MD 09/10/18 14:36: 1. Liver: possible hepatocellular disease but no obvious cirrhosis - pt w/ initial increase ammonia now improved - would continue Lactulose - will need further liver eval as outpt - no changes at this time 2. Abd: pt w/ abdominal lesion for IR intervention today - will follow results - other rec as outlined below - will follow for now Original Note: Assessment and Plan 1.hepatic encephalopathy? 2.ETOH abuse 3.elevated LFTs 4.sepsis 2/2 pelvic abscess and peritonitis 5.pneumonia -afebrile -WBC 25-trending down -H/H 11.0/33.1-no active signs of bleeding -plt WNL (189), INR 1.27 -LFTs trending down (T.ifeoma 2.10, AST 27, ALT 22, alk phos 128) -ammonia WNL (30)-trended down -hepatitis panel and toxicology screen negative -abd CT showed diffuse peritonitis, plevic abscess, diffusely dilated small bowel w/ diffuse wall thickening (reactive vs ileus), and heterogeneous low attenuation of the liver (fatty infiltration and/or hepatocellular disease) -abd U/S- suggestive of hepatocellular disease -encephalopathy improved- likely multifactorial 2/2 sepsis and liver disease -plevic abscess-surgery following with recommendations for drainage of pelvic collection today by IR -clinically, patient is stable w/o abd pain, N/V, or signs of bleeding. Tolerating diet. -continue antibiotics -continue lactulose (titrate to goal of BMs x 2-3/day) -alcohol cessation discussed with patient-monitor for signs of withdrawal -electrolyte management per primary team -continue to trend labs and supportive care -will follow Subjective Date of service: 09/10/18 Principal diagnosis: ETOH liver disease Interval history: Patient w/o acute distress. Denies abd pain, N/V, or signs of bleeding. Tolerating diet. Objective - Constitutional Vitals: Temp Pulse Resp BP Pulse Ox 98.1 F 77 16 97/61 100 09/10/18 11:15 09/10/18 11:30 09/10/18 11:30 09/10/18 11:30 09/10/18 11:30 General appearance: no acute distress - Respiratory Respiratory: bilateral: CTA (anterior) - Cardiovascular Rhythm: regular Heart Sounds: Present: S1 & S2 - Gastrointestinal General gastrointestinal: Present: soft, non-tender, non-distended, normal bowel sounds - Neurologic Neurological: alert and oriented x3, other - Labs CBC & Chem 7: 09/10/18 09:37 09/10/18 05:48 Labs: Laboratory Results - last 24 hr 09/10/18 09/10/18 09/10/18 05:48 09:37 09:37 WBC 25.0 H RBC 3.74 Hgb 11.0 L Hct 33.1 L MCV 88 MCH 29 MCHC 33 RDW 13.6 Plt Count 189 Add Manual Diff Complete Total Counted 100 Seg Neuts % (Manual) 80.0 H Band Neutrophils % 0 Lymphocytes % (Manual) 2.0 L Reactive Lymphs % (Man) 0 Monocytes % (Manual) 4.0 Eosinophils % (Manual) 2.0 Basophils % (Manual) 0 Metamyelocytes % 9.0 Myelocytes % 3.0 Promyelocytes % 0 Blast Cells % 0 Nucleated RBC % Not Reportable Seg Neutrophils # Man 20.0 H Band Neutrophils # 0.0 Lymphocytes # (Manual) 0.5 L Abs React Lymphs (Man) 0.0 Monocytes # (Manual) 1.0 H Eosinophils # (Manual) 0.5 H Basophils # (Manual) 0.0 Metamyelocytes # 2.3 Myelocytes # 0.8 Promyelocytes # 0.0 Blast Cells # 0.0 WBC Morphology Not Reportable Hypersegmented Neuts Not Reportable Hyposegmented Neuts Not Reportable Hypogranular Neuts Not Reportable Smudge Cells Not Reportable Toxic Granulation Not Reportable Toxic Vacuolation Not Reportable Dohle Bodies Not Reportable Pelger-Huet Anomaly Not Reportable Deepali Rods Not Reportable Platelet Estimate Consistent w auto Clumped Platelets Not Reportable Plt Clumps, EDTA Not Reportable Large Platelets Not Reportable Giant Platelets Not Reportable Platelet Satelliting Not Reportable Plt Morphology Comment Not Reportable RBC Morphology Not Reportable Dimorphic RBCs Not Reportable Polychromasia Not Reportable Hypochromasia Few Poikilocytosis 1+ Anisocytosis Not Reportable Microcytosis Few Macrocytosis Not Reportable Spherocytes Not Reportable Pappenheimer Bodies Not Reportable Sickle Cells Not Reportable Target Cells 1+ Tear Drop Cells Not Reportable Ovalocytes Not Reportable Helmet Cells Not Reportable [place] Bodies Not Reportable [place] Rings Not Reportable [place] Cells Not Reportable Bite Cells Not Reportable Crenated Cell Not Reportable Elliptocytes Not Reportable Acanthocytes (Spur) Not Reportable Rouleaux Not Reportable Hemoglobin C Crystals Not Reportable Schistocytes Not Reportable Malaria parasites Not Reportable Tristian Bodies Not Reportable Hem Pathologist Commnt No PT 16.3 H INR 1.27 H Sodium 128 L D Potassium 3.2 L Chloride 96.9 L Carbon Dioxide 22 Anion Gap 12 BUN 11 Creatinine 0.7 L Estimated GFR > 60 BUN/Creatinine Ratio 16 Glucose 86 Calcium 7.5 L Total Bilirubin 2.10 H AST 27 ALT 22 Alkaline Phosphatase 128 Ammonia Total Protein 6.0 L Albumin 1.9 L Albumin/Globulin Ratio 0.5 09/10/18 Unknown WBC RBC Hgb Hct MCV MCH MCHC RDW Plt Count Add Manual Diff Total Counted Seg Neuts % (Manual) Band Neutrophils % Lymphocytes % (Manual) Reactive Lymphs % (Man) Monocytes % (Manual) Eosinophils % (Manual) Basophils % (Manual) Metamyelocytes % Myelocytes % Promyelocytes % Blast Cells % Nucleated RBC % Seg Neutrophils # Man Band Neutrophils # Lymphocytes # (Manual) Abs React Lymphs (Man) Monocytes # (Manual) Eosinophils # (Manual) Basophils # (Manual) Metamyelocytes # Myelocytes # Promyelocytes # Blast Cells # WBC Morphology Hypersegmented Neuts Hyposegmented Neuts Hypogranular Neuts Smudge Cells Toxic Granulation Toxic Vacuolation Dohle Bodies Pelger-Huet Anomaly Edepali Rods Platelet Estimate Clumped Platelets Plt Clumps, EDTA Large Platelets Giant Platelets Platelet Satelliting Plt Morphology Comment RBC Morphology Dimorphic RBCs Polychromasia Hypochromasia Poikilocytosis Anisocytosis Microcytosis Macrocytosis Spherocytes Pappenheimer Bodies Sickle Cells Target Cells Tear Drop Cells Ovalocytes Helmet Cells [place] Bodies Tol[place] Rings [place] Cells Bite Cells Crenated Cell Elliptocytes Acanthocytes (Spur) Rouleaux Hemoglobin C Crystals Schistocytes Malaria parasites Tristian Bodies Hem Pathologist Commnt PT INR Sodium Potassium Chloride Carbon Dioxide Anion Gap BUN Creatinine Estimated GFR BUN/Creatinine Ratio Glucose Calcium Total Bilirubin AST ALT Alkaline Phosphatase Ammonia 30.0 Total Protein Albumin Albumin/Globulin Ratio
--- NOTE | 2018-09-10 12:17 | Progress Note ---
Assessment and Plan Assessment and plan: 43-year-old man with a known past medical history. Brought to the emergency room with altered mental status, decreased responsiveness per EMS he was staying at a local motel and per the motel staff he had been sick for a few days, and it was found unresponsive . At the time of presentation the patient was confused and lethargic and in soiled underwear. After lactulose he improved, admits to heavy etoh drinking , lives in the motel, c/o diffuse abdominal pain Labs reviewed, Ammonia in 200s on arrival, LFts wnl, etoh level neg UDS negative, hepatitis serology negative, UA negative labs show marked leukocytosis, slightly elevated TSh, but normal T4 Imaging; Chest x-ray shows left base pneumonia CT head shows no acute findings CT A/P; no image or report in EMR, but per RN, radiology called and said he has peritonitis and 6cm abscess in pelvic area, no signs of perforation Diagnosis Sepsis due to Pelvic abscess and peritonitis Community-acquired pneumonia Hepatic encephalopathy Hypokalemia Mild anemia Marked leukocytosis Etoh liver disease CAP Hypokalemia Hyponatremia PLAN Received empiric antibiotics, IV fluids, GS consulted to evaluate abscess,recommended IR drainage, IR drainage with SARAVANAN drain placement done 09/10/18 fup cultures, ID consult He received lactulose, repeat ammonia level is now within normal limits Liver function tests are normal, which may be the case in advanced chronic liver disease hepatitis serologies negative GI input appreciated, cont medical mgt k was repleted Low Na due to beer potomania, change to NS DVT prophylaxis with Lovenox History Interval history: Review of systems Constitutional: No fevers, no malaise, no joint pains CVS: No chest pain, no orthopnea, no dyspnea on exertion, no pedal edema GI: c/o diffuse abdominal pain Respiratory: No shortness of breath, no wheezing, no coughing Hospitalist Physical - Physical exam Narrative exam: General.: no distress HEENT: Moist mucous membranes, extraocular muscles intact, no lymphadenopathy Neck: supple Cardiac: S1-S2 heard Lungs: clear to auscultation bilaterally Abdomen: soft , tender, nondistended, bowel sounds positive Extremities: no edema clubbing or cyanosis Skin: no rash or lesions Neurologic: no gross focal deficits Psych: calm, and cooperative - Constitutional Vitals: Temp Pulse Resp BP Pulse Ox 98.1 F 77 16 97/61 100 09/10/18 11:15 09/10/18 11:30 09/10/18 11:30 09/10/18 11:30 09/10/18 11:30 General appearance: Present: no acute distress Results - Labs CBC & Chem 7: 09/10/18 09:37 09/10/18 05:48 Labs: Laboratory Last Values WBC 25.0 K/mm3 (4.5-11.0) H 09/10/18 09:37 RBC 3.74 M/mm3 (3.65-5.03) 09/10/18 09:37 Hgb 11.0 gm/dl (11.8-15.2) L 09/10/18 09:37 Hct 33.1 % (35.5-45.6) L 09/10/18 09:37 MCV 88 fl (84-94) 09/10/18 09:37 MCH 29 pg (28-32) 09/10/18 09:37 MCHC 33 % (32-34) 09/10/18 09:37 RDW 13.6 % (13.2-15.2) 09/10/18 09:37 Plt Count 189 K/mm3 (140-440) 09/10/18 09:37 Add Manual Diff Complete 09/10/18 09:37 Total Counted 100 09/10/18 09:37 Seg Neuts % (Manual) 80.0 % (40.0-70.0) H 09/10/18 09:37 Band Neutrophils % 0 % 09/10/18 09:37 Lymphocytes % (Manual) 2.0 % (13.4-35.0) L 09/10/18 09:37 Reactive Lymphs % (Man) 0 % 09/10/18 09:37 Monocytes % (Manual) 4.0 % (0.0-7.3) 09/10/18 09:37 Eosinophils % (Manual) 2.0 % (0.0-4.3) 09/10/18 09:37 Basophils % (Manual) 0 % (0.0-1.8) 09/10/18 09:37 Metamyelocytes % 9.0 % 09/10/18 09:37 Myelocytes % 3.0 % 09/10/18 09:37 Promyelocytes % 0 % 09/10/18 09:37 Blast Cells % 0 % 09/10/18 09:37 Nucleated RBC % Not Reportable 09/10/18 09:37 Seg Neutrophils # Man 20.0 K/mm3 (1.8-7.7) H 09/10/18 09:37 Band Neutrophils # 0.0 K/mm3 09/10/18 09:37 Lymphocytes # (Manual) 0.5 K/mm3 (1.2-5.4) L 09/10/18 09:37 Abs React Lymphs (Man) 0.0 K/mm3 09/10/18 09:37 Monocytes # (Manual) 1.0 K/mm3 (0.0-0.8) H 09/10/18 09:37 Eosinophils # (Manual) 0.5 K/mm3 (0.0-0.4) H 09/10/18 09:37 Basophils # (Manual) 0.0 K/mm3 (0.0-0.1) 09/10/18 09:37 Metamyelocytes # 2.3 K/mm3 09/10/18 09:37 Myelocytes # 0.8 K/mm3 09/10/18 09:37 Promyelocytes # 0.0 K/mm3 09/10/18 09:37 Blast Cells # 0.0 K/mm3 09/10/18 09:37 WBC Morphology Not Reportable 09/10/18 09:37 Hypersegmented Neuts Not Reportable 09/10/18 09:37 Hyposegmented Neuts Not Reportable 09/10/18 09:37 Hypogranular Neuts Not Reportable 09/10/18 09:37 Smudge Cells Not Reportable 09/10/18 09:37 Toxic Granulation Not Reportable 09/10/18 09:37 Toxic Vacuolation Not Reportable 09/10/18 09:37 Dohle Bodies Not Reportable 09/10/18 09:37 Pelger-Huet Anomaly Not Reportable 09/10/18 09:37 Deepali Rods Not Reportable 09/10/18 09:37 Platelet Estimate Consistent w auto 09/10/18 09:37 Clumped Platelets Not Reportable 09/10/18 09:37 Plt Clumps, EDTA Not Reportable 09/10/18 09:37 Large Platelets Not Reportable 09/10/18 09:37 Giant Platelets Not Reportable 09/10/18 09:37 Platelet Satelliting Not Reportable 09/10/18 09:37 Plt Morphology Comment Not Reportable 09/10/18 09:37 RBC Morphology Not Reportable 09/10/18 09:37 Dimorphic RBCs Not Reportable 09/10/18 09:37 Polychromasia Not Reportable 09/10/18 09:37 Hypochromasia Few 09/10/18 09:37 Poikilocytosis 1+ 09/10/18 09:37 Anisocytosis Not Reportable 09/10/18 09:37 Microcytosis Few 09/10/18 09:37 Macrocytosis Not Reportable 09/10/18 09:37 Spherocytes Not Reportable 09/10/18 09:37 Pappenheimer Bodies Not Reportable 09/10/18 09:37 Sickle Cells Not Reportable 09/10/18 09:37 Target Cells 1+ 09/10/18 09:37 Tear Drop Cells Not Reportable 09/10/18 09:37 Ovalocytes Not Reportable 09/10/18 09:37 Helmet Cells Not Reportable 09/10/18 09:37 [place] Bodies Not Reportable 09/10/18 09:37 [place] Rings Not Reportable 09/10/18 09:37 Trent Cells Not Reportable 09/10/18 09:37 Bite Cells Not Reportable 09/10/18 09:37 Crenated Cell Not Reportable 09/10/18 09:37 Elliptocytes Not Reportable 09/10/18 09:37 Acanthocytes (Spur) Not Reportable 09/10/18 09:37 Rouleaux Not Reportable 09/10/18 09:37 Hemoglobin C Crystals Not Reportable 09/10/18 09:37 Schistocytes Not Reportable 09/10/18 09:37 Malaria parasites Not Reportable 09/10/18 09:37 Tristian Bodies Not Reportable 09/10/18 09:37 Hem Pathologist Commnt No 09/10/18 09:37 PT 16.3 Sec. (12.2-14.9) H 09/10/18 09:37 INR 1.27 (0.87-1.13) H 09/10/18 09:37 Sodium 128 mmol/L (137-145) L D 09/10/18 05:48 Potassium 3.2 mmol/L (3.6-5.0) L 09/10/18 05:48 Chloride 96.9 mmol/L (98-107) L 09/10/18 05:48 Carbon Dioxide 22 mmol/L (22-30) 09/10/18 05:48 Anion Gap 12 mmol/L 09/10/18 05:48 BUN 11 mg/dL (9-20) 09/10/18 05:48 Creatinine 0.7 mg/dL (0.8-1.5) L 09/10/18 05:48 Estimated GFR > 60 ml/min 09/10/18 05:48 BUN/Creatinine Ratio 16 % 09/10/18 05:48 Glucose 86 mg/dL (75-100) 09/10/18 05:48 POC Glucose 107 (70-105) H 09/08/18 14:08 Lactic Acid 1.40 mmol/L (0.7-2.0) 09/09/18 05:40 Calcium 7.5 mg/dL (8.4-10.2) L 09/10/18 05:48 Total Bilirubin 2.10 mg/dL (0.1-1.2) H 09/10/18 05:48 AST 27 units/L (5-40) 09/10/18 05:48 ALT 22 units/L (7-56) 09/10/18 05:48 Alkaline Phosphatase 128 units/L (35-129) 09/10/18 05:48 Ammonia 30.0 umol/L (25-60) 09/10/18 Unknown Troponin T < 0.010 ng/mL (0.00-0.029) 09/08/18 14:23 Total Protein 6.0 g/dL (6.3-8.2) L 09/10/18 05:48 Albumin 1.9 g/dL (3.9-5) L 09/10/18 05:48 Albumin/Globulin Ratio 0.5 % 09/10/18 05:48 Lipase 104 units/L (13-60) H 09/08/18 14:23 TSH 4.490 mlU/mL (0.270-4.200) H 09/08/18 14:23 Free T4 0.93 ng/dL (0.76-1.46) 09/08/18 16:10 Urine Color Brianne (Yellow) 09/08/18 14:39 Urine Turbidity Clear (Clear) 09/08/18 14:39 Urine pH 5.0 (5.0-7.0) 09/08/18 14:39 Ur Specific [place] 1.011 (1.003-1.030) 09/08/18 14:39 Urine Protein <15 mg/dl mg/dL (Negative) 09/08/18 14:39 Urine Glucose (UA) Neg mg/dL (Negative) 09/08/18 14:39 Urine Ketones Tr mg/dL (Negative) 09/08/18 14:39 Urine Blood Neg (Negative) 09/08/18 14:39 Urine Nitrite Neg (Negative) 09/08/18 14:39 Urine Bilirubin Neg (Negative) 09/08/18 14:39 Urine Urobilinogen 2.0 mg/dL (<2.0) 09/08/18 14:39 Ur Leukocyte Esterase Neg (Negative) 09/08/18 14:39 Urine WBC (Auto) 1.0 /HPF (0.0-6.0) 09/08/18 14:39 Urine RBC (Auto) < 1.0 /HPF (0.0-6.0) 09/08/18 14:39 Salicylates < 0.3 mg/dL (2.8-20.0) L 09/08/18 16:10 Urine Opiates Screen Presumptive negative 09/08/18 14:39 Urine Methadone Screen Presumptive negative 09/08/18 14:39 Acetaminophen < 5.0 ug/mL (10.0-30.0) L 09/08/18 16:10 Ur Barbiturates Screen Presumptive negative 09/08/18 14:39 Ur Phencyclidine Scrn Presumptive negative 09/08/18 14:39 Ur Amphetamines Screen Presumptive negative 09/08/18 14:39 U Benzodiazepines Scrn Presumptive negative 09/08/18 14:39 Urine Cocaine Screen Presumptive negative 09/08/18 14:39 U Marijuana (THC) Screen Presumptive negative 09/08/18 14:39 Drugs of Abuse Note Disclamer 09/08/18 14:39 Plasma/Serum Alcohol < 0.01 % (0-0.07) 09/08/18 14:23 Hepatitis A IgM Ab Non-reactive (NonReactive) 09/08/18 16:10 Hep Bs Antigen Non-reactive (Negative) 09/08/18 16:10 Hep B Core IgM Ab Non-reactive (NonReactive) 09/08/18 16:10 Hepatitis C Antibody Non-reactive (NonReactive) 09/08/18 16:10 Nutrition/Malnutrition Assess - Dietary Evaluation Nutrition/Malnutrition Findings: Nutrition Notes Start: 09/09/18 15:10 Freq: Status: Active Protocol: Document 09/09/18 15:10 RM (Rec: 09/09/18 15:18 RM [email or web address]) Nutrition Notes Need for Assessment generated from: [facility] Initial or Follow up Assessment Current Diagnosis Acute Kidney Injury Other Pertinent Diagnosis Encephalopathy, ETOH dependence Current Diet NPO Labs/Tests Reviewed Pertinent Medications Reviewed Height 5 ft 7 in Weight 49 kg [place] Body Weight (kg) 67.27 BMI 16.9 Weight Status Underweight Subjective/Other Information Pt asleep at time of visit. Pt has been NPO since admission. Burn Absent Trauma Absent #1 Nutrition Diagnosis Predicted suboptimal energy intake Etiology encephalopathy As Evidenced by Signs and Symptoms pt BMI of 16.9 Is patient on ventilator? No Is Patient Ambulatory and/or Out of Bed Yes REE-([place]-St. Jeor-ambulatory/OOB) [ 1740.219 [id number]] Kcal/Kg value to use for calculation 46 Approximate Energy Requirements Using 2254 kcal/Kg Calculation Used for Recommendations Kcal/kg Additional Notes Protein Needs: 49-64g (1-1.3g/ kg) Fluid Needs: 1 ml/kcal Nutrition Intervention Change Diet Order: Advance diet when medically able Add Supplement/Snack (indicate name/kcal Ensure Enlive 1 daily /protein ) Provides kCal: 350 Provides Protein (gm) 20 Goal #1 Diet advancement Anticipated Discharge Needs: Unable to determine at this time Follow-Up By: 09/11/18 Additional Comments Follow for PO and ONS intakes
[2018-09-10] MEDS ORDERED: KCL 40 MEQ in NACL 0.45% 500 ML IV SCH (16:15)
[2018-09-10] MEDS ORDERED: PERCOCET 5/325 PO PRN (16:17)
[2018-09-10] MEDS ORDERED: DILAUDID IV PRN (16:17)
[2018-09-10] MEDS ORDERED: ATIVAN PO PRN (17:47)
[2018-09-10] MEDS ORDERED: ATIVAN IV PRN ×2 (17:47)
--- NOTE | 2018-09-10 20:43 | Consultation ---
History of Present Illness - Reason for Consult Consult date: 09/10/18 pelvic abscess Requesting physician: GWEN SHANKS - History of Present Illness 43 y/o male with heavy ETOH abuse; admitted on 09/08/2018 due to be found almost unresponsive at a local motel. Patient reports he drinks ETOH heavily but cannot recall any details from admission. 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 He came to [facility] 23 years ago. He is unable to provide any ROS. Denies tob/drug abuse, drinks 3-4 beers a day. In the ED, temp 98.3, HR 97, R 20, O2 sat 96, BP 105/59, WBC 26K. Hg 13. Plat 192. Na 126. Creat 1.8. Lactate 2.7. AST 55. Bili 3.5. Ammonia 220. UA neg. UDS neg. Viral hepatitis A, B, C negative. Blood cultures 09/08/2018 no growth so far. Head CT head negative . Chest x-ray which showed pneumonia. CT revealing peritonitis and rim-enhancing fluid collection within his pelvis. Review of Systems: unable to obtain Past History Past Medical History: No medical history, other (UTO) Past Surgical History: No surgical history, Other (UTO) Social history: single, alcohol abuse Family history: other (UTO) Medications and Allergies Allergies Allergy/AdvReac Type Severity Reaction Status Date / Time Unable to Assess Allergy Unverified 09/08/18 14:11 Active Meds: Active Medications Acetaminophen (Tylenol) 650 mg PO Q4H PRN PRN Reason: Pain MILD(1-3)/Fever >100.5/JEAN Albuterol (Proventil) 2.5 mg IH Q4HRT PRN PRN Reason: Shortness Of Breath Hydromorphone HCl (Dilaudid) 0.25 mg IV Q3H PRN PRN Reason: Pain , Severe (7-10) Levofloxacin/Dextrose (Levaquin 750mg/150ml) 750 mg in 150 mls @ 100 mls/hr IV Q24HR PATRICIA; Protocol Last Admin: 09/10/18 11:49 Dose: 100 mls/hr Documented by: Metronidazole (Flagyl 500 Mg/100 Ml) 500 mg in 100 mls @ 100 mls/hr IV Q8HR PATRICIA; Protocol Last Admin: 09/10/18 14:40 Dose: 100 mls/hr Documented by: Sodium Chloride (Nacl 0.9% 1000 Ml) 1,000 mls @ 75 mls/hr IV DIRECT PATRICIA Lorazepam (Ativan) 2 mg PO Q1H PRN PRN Reason: CIWA-Ar 8-15 Lorazepam (Ativan) 4 mg IV Q1H PRN PRN Reason: CIWA-Ar 16-25 Lorazepam (Ativan) 4 mg IV Q15MIN PRN PRN Reason: CIWA-Ar >25 Ondansetron HCl (Zofran) 4 mg IV Q8H PRN PRN Reason: Nausea And Vomiting Oxycodone/Acetaminophen (Percocet 5/325) 1 tab PO Q6H PRN PRN Reason: Pain, Moderate (4-6) Sodium Chloride (Sodium Chloride Flush Syringe 10 Ml) 10 ml IV BID [facility] Last Admin: 09/10/18 11:54 Dose: 10 ml Documented by: Sodium Chloride (Sodium Chloride Flush Syringe 10 Ml) 10 ml IV PRN PRN PRN Reason: LINE FLUSH Physical Examination - Physical Exam Narrative exam: Constitutional: Alert, cooperative. No acute distress Head, Ears, Nose: Normocephalic, atraumatic. External ears, nose normal Eyes: Conjunctivae/corneas clear. + icterus. No ptosis. Neck:no JVD Oral: clear Cardiovascular: RRR +murmur Respiratory: Good air entry, clear to auscultation bilaterally GI: Soft, non-tender; bowel sounds normal. Post pelvic drain +purulent Musculoskeletal: No pedal edema, no cyanosis. Skin: No rash or abscess. Hem/Lymphatic: No palpable cervical or supraclavicular nodes. No lymphangitis Psych: Mood ok. Flat Affect Neurological: Awake, alert, confused - Constitutional Vitals: Vital Signs Temp Pulse Resp BP Pulse Ox 98.3 F 96 H 16 102/66 96 09/10/18 17:30 09/10/18 17:30 09/10/18 17:30 09/10/18 17:30 09/10/18 17:30 Temperature -Last 24 Hours Temperature [Post-Procedure] 98.1 F Temperature [Pre-Procedure] 98.8 F Temperature 98.3 F Temperature 98.3 F Temperature 97.8 F Temperature 97.9 F Results - Labs CBC & Chem 7: 09/10/18 09:37 09/10/18 05:48 Labs: Abnormal lab results 09/10/18 09/10/18 09/10/18 Range/Units 05:48 09:37 09:37 WBC 25.0 H (4.5-11.0) K/mm3 Hgb 11.0 L (11.8-15.2) gm/dl Hct 33.1 L (35.5-45.6) % Seg Neuts % (Manual) 80.0 H (40.0-70.0) % Lymphocytes % (Manual) 2.0 L (13.4-35.0) % Seg Neutrophils # Man 20.0 H (1.8-7.7) K/mm3 Lymphocytes # (Manual) 0.5 L (1.2-5.4) K/mm3 Monocytes # (Manual) 1.0 H (0.0-0.8) K/mm3 Eosinophils # (Manual) 0.5 H (0.0-0.4) K/mm3 PT 16.3 H (12.2-14.9) Sec. INR 1.27 H (0.87-1.13) Sodium 128 L D (137-145) mmol/L Potassium 3.2 L (3.6-5.0) mmol/L Chloride 96.9 L (98-107) mmol/L Creatinine 0.7 L (0.8-1.5) mg/dL Calcium 7.5 L (8.4-10.2) mg/dL Total Bilirubin 2.10 H (0.1-1.2) mg/dL Total Protein 6.0 L (6.3-8.2) g/dL Albumin 1.9 L (3.9-5) g/dL Assessment and Plan Cultures: 09/08/2018 blood culture no growth A/P: 43 y/o male with heavy ETOH abuse; admitted on 09/08/2018 due to be found almost unresponsive at a local motel: Sepsis: present on admission with tachycardia, leukocytosis, elevated lactate; etio. pelvic abscess +/- presumed pneumonia. Blood cultures 09/08/2018 no growth so far Pelvic abscess: of unclear etiology, there are more than one, s/p CT drainage + 50cc of purulence, Gram stain many PMNs, GPC. CT revealing peritonitis and rim- enhancing fluid collection within his pelvis. Presumed pneumonia: CXR LLL consolidation vs atelectasis ? aspiration Hepatic encephalopathy: initial Ammonia 220. Viral hepatitis A, B, C negative. ETOH liver cirrhosis Recs: stop levaquin and flagyl start zosyn to cover pelvic abscess Gram stain with GPC ? Enterococcus) and aspiration pneumonitis CRP f/u drainage cultures check HIV check TTE - murmur on exam Justine Auqino MD [facility] C: [phone] O: [phone] F: [phone]
[2018-09-10] MEDS: NACL 0.9% 1000 ML 1,000 ML IV SCH (22:11)
[2018-09-11] MEDS: ZOSYN/NS 4.5GM/100ML 4.5 GM/100 ML VIAL IV SCH ×3 (01:09→16:13)
[2018-09-11 05:42] LABS: Hematocrit 28.1 % (35.5-45.6); Hemoglobin 9.3 gm/dl (11.8-15.2); Mean Corpuscular HGB Conc 33 % (32-34); Mean Corpuscular Volume 89 fl (84-94); Platelet Count 165 K/mm3 (140-440); Red Blood Count 3.17 M/mm3 (3.65-5.03); Red Cell Distribution Width 13.5 % (13.2-15.2)
[2018-09-11 05:55] LABS: INR 1.35 (0.87-1.13)
[2018-09-11 06:08] LABS: Alanine Aminotransferase 19 units/L (7-56); Albumin 1.9 g/dL (3.9-5); BUN/Creatinine Ratio 8; Blood Urea Nitrogen 6 mg/dL (9-20); Hemolysis Index 4
[2018-09-11] MEDS ORDERED: K-DUR PO ONE (06:47)
[2018-09-11 07:11] LABS: Anisocytosis 1+; Band Neutrophils # (Manual) 1.2 K/mm3; Basophils % (Manual) 0 % (0.0-1.8); Eosinophils % (Manual) 0 % (0.0-4.3); Hypochromasia 1+; Myelocytes # (Manual) 0.8 K/mm3; Target Cells Few; Total Cells Counted 100
[2018-09-11 07:12] LABS: Large Platelets Few
--- NOTE | 2018-09-11 09:05 | Progress Note ---
Assessment and Plan - Patient Problems (1) Pelvic abscess in male Current Visit: Yes Status: Acute Plan to address problem: Pt stable. Patient remains perfectly stable. Vital signs are normal. He tolerated a regular diet last night. WBC better. About 50cc of pus was drained from pelvis - GPC so far. abdomen remains fairly benign. Cont with abx. Diet as tolerated. Encourage ambulation. At some point, may be helpful to repeat CT with PO and IV contrast to see if we can find a source for this pelvic abscess and other fluid collections in the a bdominal cavity. Will follow along. Please call with questions. Time=10min Subjective Date of service: 09/11/18 Patient Reports: Positive: tolerating a regular diet (complains about food. Wants jello), afebrile, other (drain hurts). Negative: nausea, vomiting Objective Vital Signs - 12hr 09/10/18 09/10/18 09/11/18 21:10 22:09 00:02 Temperature 98.0 F 99.3 F Pulse Rate 94 H 101 H Respiratory 18 18 Rate Blood Pressure 93/56 Blood Pressure 103/64 [Right] O2 Sat by Pulse 96 98 98 Oximetry 09/11/18 09/11/18 01:07 05:16 Temperature 98.8 F Pulse Rate 94 H 94 H Respiratory 18 18 Rate Blood Pressure 109/70 102/66 Blood Pressure [Right] O2 Sat by Pulse 95 97 Oximetry - General physical appearance no distress, no pain, other (appears to be perseverating; does not appear ill. Appears to have more energy today. Sitting up in bed) - Eyes normal occular movement - Respiratory normal expansion, normal respiratory effort - Abdomen soft, tender (subjective in the LUQ - no objective signs of tenderness. ), diste nded (mild), not guarding, not rigid, not wound, not surgical scars - Integumentary no rash, no growths, no abnormal pigmentation - Psychiatric speech is normal - Labs 09/11/18 05:18 09/11/18 05:18 Diabetes panel 09/11/18 Range/Units 05:18 Sodium 131 L (137-145) mmol/L Potassium 2.8 L* (3.6-5.0) mmol/L Chloride 99.6 (98-107) mmol/L Carbon Dioxide 22 (22-30) mmol/L BUN 6 L (9-20) mg/dL Creatinine 0.8 (0.8-1.5) mg/dL Glucose 107 H (75-100) mg/dL Calcium 7.0 L (8.4-10.2) mg/dL AST 25 (5-40) units/L ALT 19 (7-56) units/L Alkaline Phosphatase 113 (35-129) units/L Total Protein 5.9 L (6.3-8.2) g/dL Albumin 1.9 L (3.9-5) g/dL Calcium panel 09/11/18 Range/Units 05:18 Calcium 7.0 L (8.4-10.2) mg/dL Albumin 1.9 L (3.9-5) g/dL Pituitary panel 09/11/18 Range/Units 05:18 Sodium 131 L (137-145) mmol/L Potassium 2.8 L* (3.6-5.0) mmol/L Chloride 99.6 (98-107) mmol/L Carbon Dioxide 22 (22-30) mmol/L BUN 6 L (9-20) mg/dL Creatinine 0.8 (0.8-1.5) mg/dL Glucose 107 H (75-100) mg/dL Calcium 7.0 L (8.4-10.2) mg/dL Adrenal panel 09/11/18 Range/Units 05:18 Sodium 131 L (137-145) mmol/L Potassium 2.8 L* (3.6-5.0) mmol/L Chloride 99.6 (98-107) mmol/L Carbon Dioxide 22 (22-30) mmol/L BUN 6 L (9-20) mg/dL Creatinine 0.8 (0.8-1.5) mg/dL Glucose 107 H (75-100) mg/dL Calcium 7.0 L (8.4-10.2) mg/dL Total Bilirubin 1.60 H (0.1-1.2) mg/dL AST 25 (5-40) units/L ALT 19 (7-56) units/L Alkaline Phosphatase 113 (35-129) units/L Total Protein 5.9 L (6.3-8.2) g/dL Albumin 1.9 L (3.9-5) g/dL
--- NOTE | 2018-09-11 09:32 | Progress Note ---
Assessment and Plan Cultures: 09/08/2018 blood culture no growth 09/10/2018 surgical : in progress A/P: 43 y/o male with heavy ETOH abuse; admitted on 09/08/2018 due to be found almost unresponsive at a local motel: Sepsis:Improved. Leukocytosis continuing; etio. pelvic abscess +/- presumed pneumonia. Blood cultures 09/08/2018 no growth so far -TTE- pending -CRP 5.40 Pelvic abscess: of unclear etiology, there are more than one, s/p CT drainage + 50cc of purulence, Gram stain many PMNs, GPC. CT revealing peritonitis and rim- enhancing fluid collection within his pelvis. -HIV- negative Presumed pneumonia: CXR LLL consolidation vs atelectasis ? aspiration Hepatic encephalopathy: initial Ammonia 220. Viral hepatitis A, B, C negative. ETOH liver cirrhosis Recs: continue zosyn to cover pelvic abscess Gram stain with GPC ? Enterococcus) and aspiration pneumonitis f/u drainage cultures -f/u CT of abdomen and pelvis with contrast on 09/15/18 - f/u on final cultures to determine antibiotic regimen upon discharge [facility] M: [id number] O:[phone] Subjective Date of service: 09/11/18 Principal diagnosis: ETOH liver disease Interval history: Patient seen and examined. Stated that he was having right hip pain and soreness at drain site. Objective - Exam Narrative Exam: Constitutional: Alert, cooperative. No acute distress Head, Ears, Nose: Normocephalic, atraumatic. External ears, nose normal Eyes: Conjunctivae/corneas clear. + icterus. No ptosis. Neck:no JVD Oral: clear Cardiovascular: RRR +murmur Respiratory: Good air entry, clear to auscultation bilaterally GI: Soft, non-tender; bowel sounds normal. Post pelvic drain +purulent Musculoskeletal: No pedal edema, no cyanosis. Skin: +drain right hip Hem/Lymphatic: No palpable cervical or supraclavicular nodes. No lymphangitis Psych: Mood ok. Flat Affect Neurological: Awake, alert, confused - Constitutional Vitals: Vital Signs Temp Pulse Resp BP Pulse Ox 98.8 F 94 H 18 102/66 97 09/11/18 05:16 09/11/18 05:16 09/11/18 05:16 09/11/18 05:16 09/11/18 05:16 Temperature -Last 24 Hours Temperature [Post-Procedure] 98.1 F Temperature [Pre-Procedure] 98.8 F Temperature 98.8 F Temperature 99.3 F Temperature 98.0 F Temperature 98.3 F Temperature 98.3 F - Labs CBC & Chem 7: 09/11/18 05:18 09/11/18 05:18 Labs: Abnormal lab results 09/10/18 09/10/18 09/10/18 Range/Units 09:37 09:37 21:37 WBC 25.0 H (4.5-11.0) K/mm3 RBC (3.65-5.03) M/mm3 Hgb 11.0 L (11.8-15.2) gm/dl Hct 33.1 L (35.5-45.6) % Seg Neuts % (Manual) 80.0 H (40.0-70.0) % Lymphocytes % (Manual) 2.0 L (13.4-35.0) % Monocytes % (Manual) (0.0-7.3) % Seg Neutrophils # Man 20.0 H (1.8-7.7) K/mm3 Lymphocytes # (Manual) 0.5 L (1.2-5.4) K/mm3 Monocytes # (Manual) 1.0 H (0.0-0.8) K/mm3 Eosinophils # (Manual) 0.5 H (0.0-0.4) K/mm3 PT 16.3 H (12.2-14.9) Sec. INR 1.27 H (0.87-1.13) Sodium (137-145) mmol/L Potassium (3.6-5.0) mmol/L BUN (9-20) mg/dL Glucose (75-100) mg/dL Calcium (8.4-10.2) mg/dL Total Bilirubin (0.1-1.2) mg/dL C-Reactive Protein 5.40 H (0.00-1.30) mg/dL Total Protein (6.3-8.2) g/dL Albumin (3.9-5) g/dL 09/11/18 09/11/18 09/11/18 Range/Units 05:18 05:18 05:18 WBC 19.7 H (4.5-11.0) K/mm3 RBC 3.17 L (3.65-5.03) M/mm3 Hgb 9.3 L (11.8-15.2) gm/dl Hct 28.1 L (35.5-45.6) % Seg Neuts % (Manual) 73.0 H (40.0-70.0) % Lymphocytes % (Manual) 9.0 L (13.4-35.0) % Monocytes % (Manual) 8.0 H (0.0-7.3) % Seg Neutrophils # Man 14.4 H (1.8-7.7) K/mm3 Lymphocytes # (Manual) (1.2-5.4) K/mm3 Monocytes # (Manual) 1.6 H (0.0-0.8) K/mm3 Eosinophils # (Manual) (0.0-0.4) K/mm3 PT 17.1 H (12.2-14.9) Sec. INR 1.35 H (0.87-1.13) Sodium 131 L (137-145) mmol/L Potassium 2.8 L* (3.6-5.0) mmol/L BUN 6 L (9-20) mg/dL Glucose 107 H (75-100) mg/dL Calcium 7.0 L (8.4-10.2) mg/dL Total Bilirubin 1.60 H (0.1-1.2) mg/dL C-Reactive Protein (0.00-1.30) mg/dL Total Protein 5.9 L (6.3-8.2) g/dL Albumin 1.9 L (3.9-5) g/dL
[2018-09-11] MEDS: SODIUM CHLORIDE FLUSH SYRINGE 10 ML IV SCH ×2 (09:35→21:26)
--- NOTE | 2018-09-11 10:06 | Cat Scan Report ---
FINAL REPORT EXAM: CT ABDOMEN PELVIS WO CONTRAST HISTORY: AMS TECHNIQUE: Helical CT scan through the abdomen and pelvis during intravenous injection of iodinated contrast. Images are reconstructed in the sagittal and coronal planes. Oral contrast was not given. PRIORS: None. FINDINGS: Images through the lung bases demonstrate bibasilar subsegmental atelectasis. There is fluid around the upper liver with associated smooth peritoneal thickening and enhancement. T here is a small amount of free fluid in the left upper quadrant. There is no free air. There is an encapsulated fluid and air collection in the rectovesical space measuring 5.0 x 3.6 x 5.5 cm consistent with an abscess. In the pelvis, there is mesenteric fluid interposed between a collect ion of small bowel loops and mesenteric fat stranding. The small bowel is diffusely dilated and has diffuse smooth wall thickening. The colon is largely dec ompressed. A normal-appearing appendix is identified. The liver has a heterogeneous low attenuation pattern. The gallbladder wall is enhancing. The pancrea s, spleen, adrenal glands and kidneys appear normal. The stomach appears grossly within normal limits. The abdominal aorta has a normal diameter. There are bilateral pars defects at L5 with grade 1 spondylolisthesis. IMPRESSION: 1. Findings are most consistent with diffuse peritonitis. There is an encapsulated fluid collection i n the pelvis consistent with abscess 5.0 x 3.6 x 5.5 cm. 2. Diffusely dilated small bowel with diffuse wall thickening is a nonspecific finding but may be johann ctive secondary to peritonitis. Also consider ileus. 3. Heterogeneous low attenuation of the liver is consistent with fatty infiltration and/or hepatocell ular disease 4. Bibasilar subsegmental atelectasis I gave a verbal report by phone to DAVID Ying at 7:40 p.m. eastern standard time.
--- NOTE | 2018-09-11 10:19 | Gastroenterology Progress Note ---
Addendum entered and electronically signed by YANNI PORTILLO MD 09/11/18 15:16: - management as outlined - will sign off, call if needed Original Note: Assessment and Plan 1.hepatic encephalopathy? 2.ETOH abuse 3.elevated LFTs -afebrile -WBC 19.7-trending down -H/H 11.0/33.1 -plt WNL (165), INR 1.35 -LFTs trending down (T.[place] 1.60, AST 25, ALT 19, alk phos 113) -ammonia now WNL -hepatitis panel and toxicology screen negative -abd CT showed diffuse peritonitis, plevic abscess, diffusely dilated small bowel w/ diffuse wall thickening (reactive vs ileus), and heterogeneous low attenuation of the liver (fatty infiltration and/or hepatocellular disease) -abd U/S- suggestive of hepatocellular disease -etiology- possible hepatocellular disease but no obvious cirrhosis -encephalopathy improved- likely multifactorial 2/2 sepsis and liver disease -clinically, patient is stable. Reports some mild abd pain 2/2 below. No N/V or signs of bleeding. Tolerating diet. -continue antibiotics per ID recommendations -continue lactulose (titrate to goal of BMs x 2-3/day) -alcohol cessation discussed with patient-monitor for signs of withdrawal -electrolyte management per primary team -continue to trend labs and supportive care -No further recommendations per GI standpoint at this time -further work up/evaluation of liver disease as outpatient upon d/c -will sign off, please call if needed 4.sepsis 2/2 pelvic abscess and peritonitis- s/p drainage of pelvic collection yesterday by IR -further management per ID and surgery 5.penumonia Subjective Date of service: 09/11/18 Principal diagnosis: ETOH liver disease Interval history: No acute distress. Objective - Constitutional Vitals: Temp Pulse Resp BP Pulse Ox 98.8 F 94 H 18 102/66 97 09/11/18 05:16 09/11/18 05:16 09/11/18 05:16 09/11/18 05:16 09/11/18 05:16 General appearance: no acute distress - Respiratory Respiratory: bilateral: CTA (anterior) - Cardiovascular Rhythm: regular Heart Sounds: Present: S1 & S2 - Gastrointestinal General gastrointestinal: Present: soft, tender (slight TTP), non-distended, normal bowel sounds, other (+SARAVANAN drain with purulent drainage) - Neurologic Neurological: alert and oriented x3 - Labs CBC & Chem 7: 09/11/18 05:18 09/11/18 05:18 Labs: Laboratory Results - last 24 hr 09/10/18 09/10/18 09/10/18 09:37 21:37 21:37 WBC RBC Hgb Hct MCV MCH MCHC RDW Plt Count Add Manual Diff Complete Total Counted 100 Seg Neuts % (Manual) 80.0 H Band Neutrophils % 0 Lymphocytes % (Manual) 2.0 L Reactive Lymphs % (Man) 0 Monocytes % (Manual) 4.0 Eosinophils % (Manual) 2.0 Basophils % (Manual) 0 Metamyelocytes % 9.0 Myelocytes % 3.0 Promyelocytes % 0 Blast Cells % 0 Nucleated RBC % Not Reportable Seg Neutrophils # Man 20.0 H Band Neutrophils # 0.0 Lymphocytes # (Manual) 0.5 L Abs React Lymphs (Man) 0.0 Monocytes # (Manual) 1.0 H Eosinophils # (Manual) 0.5 H Basophils # (Manual) 0.0 Metamyelocytes # 2.3 Myelocytes # 0.8 Promyelocytes # 0.0 Blast Cells # 0.0 WBC Morphology Not Reportable Hypersegmented Neuts Not Reportable Hyposegmented Neuts Not Reportable Hypogranular Neuts Not Reportable Smudge Cells Not Reportable Toxic Granulation Not Reportable Toxic Vacuolation Not Reportable Dohle Bodies Not Reportable Pelger-Huet Anomaly Not Reportable Deepali Rods Not Reportable Platelet Estimate Consistent w auto Clumped Platelets Not Reportable Plt Clumps, EDTA Not Reportable Large Platelets Not Reportable Giant Platelets Not Reportable Platelet Satelliting Not Reportable Plt Morphology Comment Not Reportable RBC Morphology Not Reportable Dimorphic RBCs Not Reportable Polychromasia Not Reportable Hypochromasia Few Poikilocytosis 1+ Anisocytosis Not Reportable Microcytosis Few Macrocytosis Not Reportable Spherocytes Not Reportable Pappenheimer Bodies Not Reportable Sickle Cells Not Reportable Target Cells 1+ Tear Drop Cells Not Reportable Ovalocytes Not Reportable Helmet Cells Not Reportable [place] Bodies Not Reportable [place] Rings Not Reportable [place] Cells Not Reportable Bite Cells Not Reportable Crenated Cell Not Reportable Elliptocytes Not Reportable Acanthocytes (Spur) Not Reportable Rouleaux Not Reportable Hemoglobin C Crystals Not Reportable Schistocytes Not Reportable Malaria parasites Not Reportable [place] Bodies Not Reportable Hem Pathologist Commnt No PT INR Sodium Potassium Chloride Carbon Dioxide Anion Gap BUN Creatinine Estimated GFR BUN/Creatinine Ratio Glucose Calcium Total Bilirubin AST ALT Alkaline Phosphatase Ammonia C-Reactive Protein 5.40 H Total Protein Albumin Albumin/Globulin Ratio HIV 1&2 Antibody Rapid Non react HIV P24 Antigen Non react 09/10/18 09/11/18 09/11/18 Unknown 05:18 05:18 WBC 19.7 H RBC 3.17 L Hgb 9.3 L Hct 28.1 L MCV 89 MCH 29 MCHC 33 RDW 13.5 Plt Count 165 Add Manual Diff Complete Total Counted 100 Seg Neuts % (Manual) 73.0 H Band Neutrophils % 6.0 Lymphocytes % (Manual) 9.0 L Reactive Lymphs % (Man) 0 Monocytes % (Manual) 8.0 H Eosinophils % (Manual) 0 Basophils % (Manual) 0 Metamyelocytes % 0 Myelocytes % 4.0 Promyelocytes % 0 Blast Cells % 0 Nucleated RBC % Not Reportable Seg Neutrophils # Man 14.4 H Band Neutrophils # 1.2 Lymphocytes # (Manual) 1.8 Abs React Lymphs (Man) 0.0 Monocytes # (Manual) 1.6 H Eosinophils # (Manual) 0.0 Basophils # (Manual) 0.0 Metamyelocytes # 0.0 Myelocytes # 0.8 Promyelocytes # 0.0 Blast Cells # 0.0 WBC Morphology Not Reportable Hypersegmented Neuts Not Reportable Hyposegmented Neuts Not Reportable Hypogranular Neuts Not Reportable Smudge Cells Not Reportable Toxic Granulation Not Reportable Toxic Vacuolation Not Reportable Dohle Bodies Not Reportable Pelger-Huet Anomaly Not Reportable Deepali Rods Not Reportable Platelet Estimate Appears normal Clumped Platelets Not Reportable Plt Clumps, EDTA Not Reportable Large Platelets Few Giant Platelets Not Reportable Platelet Satelliting Not Reportable Plt Morphology Comment Not Reportable RBC Morphology Not Reportable Dimorphic RBCs Not Reportable Polychromasia Not Reportable Hypochromasia 1+ Poikilocytosis Not Reportable Anisocytosis 1+ Microcytosis Not Reportable Macrocytosis Not Reportable Spherocytes Not Reportable Pappenheimer Bodies Not Reportable Sickle Cells Not Reportable Target Cells Few Tear Drop Cells Not Reportable Ovalocytes Not Reportable Helmet Cells Not Reportable [place] Bodies Not Reportable [place] Rings Not Reportable [place] Cells Not Reportable Bite Cells Not Reportable Crenated Cell Not Reportable Elliptocytes Not Reportable Acanthocytes (Spur) Not Reportable Rouleaux Not Reportable Hemoglobin C Crystals Not Reportable Schistocytes Not Reportable Malaria parasites Not Reportable [place] Bodies Not Reportable Hem Pathologist Commnt No PT 17.1 H INR 1.35 H Sodium Potassium Chloride Carbon Dioxide Anion Gap BUN Creatinine Estimated GFR BUN/Creatinine Ratio Glucose Calcium Total Bilirubin AST ALT Alkaline Phosphatase Ammonia 30.0 C-Reactive Protein Total Protein Albumin Albumin/Globulin Ratio HIV 1&2 Antibody Rapid HIV P24 Antigen 09/11/18 05:18 WBC RBC Hgb Hct MCV MCH MCHC RDW Plt Count Add Manual Diff Total Counted Seg Neuts % (Manual) Band Neutrophils % Lymphocytes % (Manual) Reactive Lymphs % (Man) Monocytes % (Manual) Eosinophils % (Manual) Basophils % (Manual) Metamyelocytes % Myelocytes % Promyelocytes % Blast Cells % Nucleated RBC % Seg Neutrophils # Man Band Neutrophils # Lymphocytes # (Manual) Abs React Lymphs (Man) Monocytes # (Manual) Eosinophils # (Manual) Basophils # (Manual) Metamyelocytes # Myelocytes # Promyelocytes # Blast Cells # WBC Morphology Hypersegmented Neuts Hyposegmented Neuts Hypogranular Neuts Smudge Cells Toxic Granulation Toxic Vacuolation Dohle Bodies Pelger-Huet Anomaly Deepali Rods Platelet Estimate Clumped Platelets Plt Clumps, EDTA Large Platelets Giant Platelets Platelet Satelliting Plt Morphology Comment RBC Morphology Dimorphic RBCs Polychromasia Hypochromasia Poikilocytosis Anisocytosis Microcytosis Macrocytosis Spherocytes Pappenheimer Bodies Sickle Cells Target Cells Tear Drop Cells Ovalocytes Helmet Cells [place] Bodies [place] Rings [place] Cells Bite Cells Crenated Cell Elliptocytes Acanthocytes (Spur) Rouleaux Hemoglobin C Crystals Schistocytes Malaria parasites [place]ist[place] Bodies Hem Pathologist Commnt PT INR Sodium 131 L Potassium 2.8 L* Chloride 99.6 Carbon Dioxide 22 Anion Gap 12 BUN 6 L Creatinine 0.8 Estimated GFR > 60 BUN/Creatinine Ratio 8 Glucose 107 H Calcium 7.0 L Total Bilirubin 1.60 H AST 25 ALT 19 Alkaline Phosphatase 113 Ammonia C-Reactive Protein Total Protein 5.9 L Albumin 1.9 L Albumin/Globulin Ratio 0.5 HIV 1&2 Antibody Rapid HIV P24 Antigen
[2018-09-11] MEDS: NACL 0.9% 1000 ML 1,000 ML IV SCH (10:53)
[2018-09-11] MEDS: KCL 40 MEQ in NACL 0.45% 500 ML IV SCH ×2 (14:36→20:18)
--- NOTE | 2018-09-11 16:31 | Progress Note ---
Assessment and Plan Assessment and plan: 43-year-old man with a known past medical history. Brought to the emergency room with altered mental status, decreased responsiveness per EMS he was staying at a local motel and per the motel staff he had been sick for a few days, and it was found unresponsive . At the time of presentation the patient was confused and lethargic and in soiled underwear. After lactulose he improved, admits to heavy etoh drinking , lives in the motel, c/o diffuse abdominal pain Labs reviewed, Ammonia in 200s on arrival, LFts wnl, etoh level neg UDS negative, hepatitis serology negative, UA negative labs show marked leukocytosis, slightly elevated TSh, but normal T4 Imaging; Chest x-ray shows left base pneumonia CT head shows no acute findings CT A/P; no image or report in EMR, but per RN, radiology called and said he has peritonitis and 6cm abscess in pelvic area, no signs of perforation Diagnosis Sepsis due to Pelvic abscess and peritonitis Community-acquired pneumonia Hepatic encephalopathy Hypokalemia Mild anemia Marked leukocytosis Etoh liver disease CAP Hypokalemia Hyponatremia hypomagnesemia beer potomonia PLAN Received empiric antibiotics, IV fluids, GS consulted to evaluate abscess,pernell mmended IR drainage, IR drainage with SARAVANAN drain placement done 09/10/18 fup cultures, ID consult He received lactulose, repeat ammonia level is now within normal limits Liver function tests are normal, which may be the case in advanced chronic liver disease hepatitis serologies negative GI input appreciated, cont medical mgt k and mg was repleted Low Na due to beer potomania, change to NS DVT prophylaxis with Lovenox History Interval history: Review of systems Constitutional: No fevers, no malaise, no joint pains CVS: No chest pain, no orthopnea, no dyspnea on exertion, no pedal edema GI: c/o diffuse abdominal pain Respiratory: No shortness of breath, no wheezing, no coughing Hospitalist Physical - Physical exam Narrative exam: General.: no distress HEENT: Moist mucous membranes, extraocular muscles intact, no lymphadenopathy Neck: supple Cardiac: S1-S2 heard Lungs: clear to auscultation bilaterally Abdomen: soft , tender, nondistended, bowel sounds positive SARAVANAN drain noted with purulent liquid Extremities: no edema clubbing or cyanosis Skin: no rash or lesions Neurologic: no gross focal deficits Psych: calm, and cooperative - Constitutional Vitals: Temp Pulse Resp BP Pulse Ox 98.0 F 94 H 19 99/68 98 09/11/18 12:32 09/11/18 05:16 09/11/18 12:32 09/11/18 12:32 09/11/18 10:42 General appearance: Present: no acute distress Results - Labs CBC & Chem 7: 09/11/18 05:18 09/11/18 05:18 Labs: Laboratory Last Values WBC 19.7 K/mm3 (4.5-11.0) H 09/11/18 05:18 RBC 3.17 M/mm3 (3.65-5.03) L 09/11/18 05:18 Hgb 9.3 gm/dl (11.8-15.2) L 09/11/18 05:18 Hct 28.1 % (35.5-45.6) L 09/11/18 05:18 MCV 89 fl (84-94) 09/11/18 05:18 MCH 29 pg (28-32) 09/11/18 05:18 MCHC 33 % (32-34) 09/11/18 05:18 RDW 13.5 % (13.2-15.2) 09/11/18 05:18 Plt Count 165 K/mm3 (140-440) 09/11/18 05:18 Add Manual Diff Complete 09/11/18 05:18 Total Counted 100 09/11/18 05:18 Seg Neuts % (Manual) 73.0 % (40.0-70.0) H 09/11/18 05:18 Band Neutrophils % 6.0 % 09/11/18 05:18 Lymphocytes % (Manual) 9.0 % (13.4-35.0) L 09/11/18 05:18 Reactive Lymphs % (Man) 0 % 09/11/18 05:18 Monocytes % (Manual) 8.0 % (0.0-7.3) H 09/11/18 05:18 Eosinophils % (Manual) 0 % (0.0-4.3) 09/11/18 05:18 Basophils % (Manual) 0 % (0.0-1.8) 09/11/18 05:18 Metamyelocytes % 0 % 09/11/18 05:18 Myelocytes % 4.0 % 09/11/18 05:18 Promyelocytes % 0 % 09/11/18 05:18 Blast Cells % 0 % 09/11/18 05:18 Nucleated RBC % Not Reportable 09/11/18 05:18 Seg Neutrophils # Man 14.4 K/mm3 (1.8-7.7) H 09/11/18 05:18 Band Neutrophils # 1.2 K/mm3 09/11/18 05:18 Lymphocytes # (Manual) 1.8 K/mm3 (1.2-5.4) 09/11/18 05:18 Abs React Lymphs (Man) 0.0 K/mm3 09/11/18 05:18 Monocytes # (Manual) 1.6 K/mm3 (0.0-0.8) H 09/11/18 05:18 Eosinophils # (Manual) 0.0 K/mm3 (0.0-0.4) 09/11/18 05:18 Basophils # (Manual) 0.0 K/mm3 (0.0-0.1) 09/11/18 05:18 Metamyelocytes # 0.0 K/mm3 09/11/18 05:18 Myelocytes # 0.8 K/mm3 09/11/18 05:18 Promyelocytes # 0.0 K/mm3 09/11/18 05:18 Blast Cells # 0.0 K/mm3 09/11/18 05:18 WBC Morphology Not Reportable 09/11/18 05:18 Hypersegmented Neuts Not Reportable 09/11/18 05:18 Hyposegmented Neuts Not Reportable 09/11/18 05:18 Hypogranular Neuts Not Reportable 09/11/18 05:18 Smudge Cells Not Reportable 09/11/18 05:18 Toxic Granulation Not Reportable 09/11/18 05:18 Toxic Vacuolation Not Reportable 09/11/18 05:18 Dohle Bodies Not Reportable 09/11/18 05:18 Pelger-Huet Anomaly Not Reportable 09/11/18 05:18 Deepali Rods Not Reportable 09/11/18 05:18 Platelet Estimate Appears normal 09/11/18 05:18 Clumped Platelets Not Reportable 09/11/18 05:18 Plt Clumps, EDTA Not Reportable 09/11/18 05:18 Large Platelets Few 09/11/18 05:18 Giant Platelets Not Reportable 09/11/18 05:18 Platelet Satelliting Not Reportable 09/11/18 05:18 Plt Morphology Comment Not Reportable 09/11/18 05:18 RBC Morphology Not Reportable 09/11/18 05:18 Dimorphic RBCs Not Reportable 09/11/18 05:18 Polychromasia Not Reportable 09/11/18 05:18 Hypochromasia 1+ 09/11/18 05:18 Poikilocytosis Not Reportable 09/11/18 05:18 Anisocytosis 1+ 09/11/18 05:18 Microcytosis Not Reportable 09/11/18 05:18 Macrocytosis Not Reportable 09/11/18 05:18 Spherocytes Not Reportable 09/11/18 05:18 Pappenheimer Bodies Not Reportable 09/11/18 05:18 Sickle Cells Not Reportable 09/11/18 05:18 Target Cells Few 09/11/18 05:18 Tear Drop Cells Not Reportable 09/11/18 05:18 Ovalocytes Not Reportable 09/11/18 05:18 Helmet Cells Not Reportable 09/11/18 05:18 [place] Bodies Not Reportable 09/11/18 05:18 [place] Rings Not Reportable 09/11/18 05:18 [place] Cells Not Reportable 09/11/18 05:18 Bite Cells Not Reportable 09/11/18 05:18 Crenated Cell Not Reportable 09/11/18 05:18 Elliptocytes Not Reportable 09/11/18 05:18 Acanthocytes (Spur) Not Reportable 09/11/18 05:18 Rouleaux Not Reportable 09/11/18 05:18 Hemoglobin C Crystals Not Reportable 09/11/18 05:18 Schistocytes Not Reportable 09/11/18 05:18 Malaria parasites Not Reportable 09/11/18 05:18 [place] Bodies Not Reportable 09/11/18 05:18 Hem Pathologist Commnt No 09/11/18 05:18 PT 17.1 Sec. (12.2-14.9) H 09/11/18 05:18 INR 1.35 (0.87-1.13) H 09/11/18 05:18 Sodium 131 mmol/L (137-145) L 09/11/18 05:18 Potassium 2.8 mmol/L (3.6-5.0) L* 09/11/18 05:18 Chloride 99.6 mmol/L (98-107) 09/11/18 05:18 Carbon Dioxide 22 mmol/L (22-30) 09/11/18 05:18 Anion Gap 12 mmol/L 09/11/18 05:18 BUN 6 mg/dL (9-20) L 09/11/18 05:18 Creatinine 0.8 mg/dL (0.8-1.5) 09/11/18 05:18 Estimated GFR > 60 ml/min 09/11/18 05:18 BUN/Creatinine Ratio 8 % 09/11/18 05:18 Glucose 107 mg/dL (75-100) H 09/11/18 05:18 POC Glucose 107 (70-105) H 09/08/18 14:08 Lactic Acid 1.40 mmol/L (0.7-2.0) 09/09/18 05:40 Calcium 7.0 mg/dL (8.4-10.2) L 09/11/18 05:18 Magnesium 1.50 mg/dL (1.7-2.3) L 09/11/18 11:45 Total Bilirubin 1.60 mg/dL (0.1-1.2) H 09/11/18 05:18 AST 25 units/L (5-40) 09/11/18 05:18 ALT 19 units/L (7-56) 09/11/18 05:18 Alkaline Phosphatase 113 units/L (35-129) 09/11/18 05:18 Ammonia 39.0 umol/L (25-60) 09/11/18 10:08 Troponin T < 0.010 ng/mL (0.00-0.029) 09/08/18 14:23 C-Reactive Protein 5.40 mg/dL (0.00-1.30) H 09/10/18 21:37 Total Protein 5.9 g/dL (6.3-8.2) L 09/11/18 05:18 Albumin 1.9 g/dL (3.9-5) L 09/11/18 05:18 Albumin/Globulin Ratio 0.5 % 09/11/18 05:18 Lipase 104 units/L (13-60) H 09/08/18 14:23 TSH 4.490 mlU/mL (0.270-4.200) H 09/08/18 14:23 Free T4 0.93 ng/dL (0.76-1.46) 09/08/18 16:10 Urine Color Brianne (Yellow) 09/08/18 14:39 Urine Turbidity Clear (Clear) 09/08/18 14:39 Urine pH 5.0 (5.0-7.0) 09/08/18 14:39 Ur Specific [place] 1.011 (1.003-1.030) 09/08/18 14:39 Urine Protein <15 mg/dl mg/dL (Negative) 09/08/18 14:39 Urine Glucose (UA) Neg mg/dL (Negative) 09/08/18 14:39 Urine Ketones Tr mg/dL (Negative) 09/08/18 14:39 Urine Blood Neg (Negative) 09/08/18 14:39 Urine Nitrite Neg (Negative) 09/08/18 14:39 Urine Bilirubin Neg (Negative) 09/08/18 14:39 Urine Urobilinogen 2.0 mg/dL (<2.0) 09/08/18 14:39 Ur Leukocyte Esterase Neg (Negative) 09/08/18 14:39 Urine WBC (Auto) 1.0 /HPF (0.0-6.0) 09/08/18 14:39 Urine RBC (Auto) < 1.0 /HPF (0.0-6.0) 09/08/18 14:39 Salicylates < 0.3 mg/dL (2.8-20.0) L 09/08/18 16:10 Urine Opiates Screen Presumptive negative 09/08/18 14:39 Urine Methadone Screen Presumptive negative 09/08/18 14:39 Acetaminophen < 5.0 ug/mL (10.0-30.0) L 09/08/18 16:10 Ur Barbiturates Screen Presumptive negative 09/08/18 14:39 Ur Phencyclidine Scrn Presumptive negative 09/08/18 14:39 Ur Amphetamines Screen Presumptive negative 09/08/18 14:39 U Benzodiazepines Scrn Presumptive negative 09/08/18 14:39 Urine Cocaine Screen Presumptive negative 09/08/18 14:39 U Marijuana (THC) Screen Presumptive negative 09/08/18 14:39 Drugs of Abuse Note Disclamer 09/08/18 14:39 Plasma/Serum Alcohol < 0.01 % (0-0.07) 09/08/18 14:23 Hepatitis A IgM Ab Non-reactive (NonReactive) 09/08/18 16:10 Hep Bs Antigen Non-reactive (Negative) 09/08/18 16:10 Hep B Core IgM Ab Non-reactive (NonReactive) 09/08/18 16:10 Hepatitis C Antibody Non-reactive (NonReactive) 09/08/18 16:10 HIV 1&2 Antibody Rapid Non react (Non React) 09/10/18 21:37 HIV P24 Antigen Non react (Non React) 09/10/18 21:37 Nutrition/Malnutrition Assess - Dietary Evaluation Nutrition/Malnutrition Findings: Nutrition Notes Start: 09/09/18 15:10 Freq: Status: Active Protocol: Document 09/11/18 14:50 RM (Rec: 09/11/18 14:52 RM [id number]) Nutrition Notes Initial or Follow up Reassessment Current Diagnosis Acute Kidney Injury Other Pertinent Diagnosis ? hepatic encephalopathy, ETOH dependence, Pelvic abscess Current Diet Vegetarian Labs/Tests Reviewed Pertinent Medications Reviewed Height 5 ft 7 in Weight 54.2 kg [place] Body Weight (kg) 67.27 BMI 18.7 Weight change and time frame Previously wt likely inaccurate d/t human error Subjective/Other Information Unable to order Ensure Enlive from previous visit d/t pt NPO status [place] [employer] Professor had difficulty communicating with pt. Unclear whether pt does not speak qatari well and/or he was confused at time of visit. Pt stated that he speaks [place]jar[place] so attempted to use interpretive services but pt did not seem to understand records analyst either. Pt declined to continue using interpretive services. Pt did state that he does not eat meat and is willing to try Ensure to help meet protein needs. Unsure of UBW. Per nurse pt eats all of his meals and confirmed that pt does not eat meat. Burn Absent Trauma Absent #2 Nutrition Diagnosis Inadequate protein intake Etiology food preferences As Evidenced by Signs and Symptoms pt on vegetarian diet #1 Nutrition Diagnosis Predicted suboptimal energy intake As Evidenced by Signs and Symptoms nurse statement that pt eats all of his meals Diagnosis Progress(for reassessment Improved documentation) Is patient on ventilator? No Is Patient Ambulatory and/or Out of Bed No REE-([facility]-confined to bed) 1672.320 Kcal/Kg value to use for calculation 46 Approximate Energy Requirements Using 2493 kcal/Kg Calculation Used for Recommendations Kcal/kg Additional Notes Protein Needs: 54-70g (1-1.3g/ kg) Fluid Needs: 1 ml/kcal Nutrition Intervention Change Diet Order: Continue current Add Supplement/Snack (indicate name/kcal Ensure Enlive 1 daily /protein ) Provides kCal: 350 Provides Protein (gm) 20 Goal #1 ONS tolerance Goal #2 Meet at least 75% of calorie and protein needs via PO and ONS intakes Anticipated Discharge Needs: Vegetarian diet Follow-Up By: 09/16/18 Additional Comments Follow for PO and ONS intakes
[2018-09-11] MEDS ORDERED: MAGNESIUM SULFATE 2GM/50ML 2 GM/50 ML BAG IV ONE (17:00)
[2018-09-12] MEDS: NACL 0.9% 1000 ML 1,000 ML IV SCH ×2 (00:32→15:41)
[2018-09-12] MEDS: ZOSYN/NS 4.5GM/100ML 4.5 GM/100 ML VIAL IV SCH ×4 (00:35→23:11)
[2018-09-12 05:20] LABS: BUN/Creatinine Ratio 4; Blood Urea Nitrogen 3 mg/dL (9-20); Calcium 6.9 mg/dL (8.4-10.2); Hemolysis Index 3
--- NOTE | 2018-09-12 09:19 | Progress Note ---
Assessment and Plan Cultures: 09/08/2018 blood culture no growth 09/10/2018 surgical : in progress A/P: 43 y/o male with heavy ETOH abuse; admitted on 09/08/2018 due to be found almost unresponsive at a local motel: Sepsis:Improved. Leukocytosis continuing; etio. pelvic abscess +/- presumed pneumonia. Blood cultures 09/08/2018 no growth so far -TTE- no valvular vegetation -CRP 5.40 Pelvic abscess: of unclear etiology, there are more than one, s/p CT drainage + 50cc of purulence, Gram stain many PMNs, GPC. CT revealing peritonitis and rim- enhancing fluid collection within his pelvis. -HIV- negative Presumed pneumonia: CXR LLL consolidation vs atelectasis ? aspiration Hepatic encephalopathy: Improved. initial Ammonia 220. Viral hepatitis A, B, C negative. ETOH liver cirrhosis Recs: Continue zosyn for now as Gram stain showed GPC in chains. f/u drainage cultures -f/u CT of abdomen and pelvis with contrast on 09/15/18 - f/u on final cultures to determine antibiotic regimen upon discharge [facility] M: [phone] O:[phone] Subjective Date of service: 09/12/18 Principal diagnosis: ETOH liver disease Interval history: Patient seen and examined. Denied generalization pain, SOB or rashes. Discussed current plan of care . Verbalized understanding. Objective - Exam Narrative Exam: Constitutional: Alert, cooperative. No acute distress Head, Ears, Nose: Normocephalic, atraumatic. External ears, nose normal Eyes: Conjunctivae/corneas clear. + icterus. No ptosis. Neck:no JVD Oral: clear Cardiovascular: RRR +murmur Respiratory: Good air entry, clear to auscultation bilaterally GI: Soft, non-tender; bowel sounds normal. Post pelvic drain +purulent Musculoskeletal: No pedal edema, no cyanosis. Skin: +drain right hip Hem/Lymphatic: No palpable cervical or supraclavicular nodes. No lymphangitis Psych: Mood ok. Flat Affect Neurological: Awake, alert, confused - Constitutional Vitals: Vital Signs Temp Pulse Resp BP Pulse Ox 99.5 F 93 H 18 103/69 96 09/12/18 05:34 09/12/18 05:34 09/12/18 05:34 09/12/18 05:34 09/12/18 05:34 Temperature -Last 24 Hours Temperature 99.5 F Temperature 99.2 F Temperature 98.8 F Temperature 98.0 F - Labs CBC & Chem 7: 09/11/18 05:18 09/12/18 04:34 Labs: Abnormal lab results 09/11/18 09/12/18 Range/Units 11:45 04:34 Sodium 132 L (137-145) mmol/L Carbon Dioxide 21 L (22-30) mmol/L BUN 3 L (9-20) mg/dL Creatinine 0.7 L (0.8-1.5) mg/dL Glucose 105 H (75-100) mg/dL Calcium 6.9 L (8.4-10.2) mg/dL Magnesium 1.50 L (1.7-2.3) mg/dL
[2018-09-12] MEDS: SODIUM CHLORIDE FLUSH SYRINGE 10 ML IV SCH ×2 (10:06→21:25)
--- NOTE | 2018-09-12 12:33 | Progress Note ---
Assessment and Plan Assessment and plan: 43-year-old man with a known past medical history. Brought to the emergency room with altered mental status, decreased responsiveness per EMS he was staying at a local motel and per the motel staff he had been sick for a few days, and it was found unresponsive . At the time of presentation the patient was confused and lethargic and in soiled underwear. After lactulose he improved, admits to heavy etoh drinking , lives in the motel, c/o diffuse abdominal pain Labs reviewed, Ammonia in 200s on arrival, LFts wnl, etoh level neg UDS negative, hepatitis serology negative, UA negative labs show marked leukocytosis, slightly elevated TSh, but normal T4 Imaging; Chest x-ray shows left base pneumonia CT head shows no acute findings CT A/P; no image or report in EMR, but per RN, radiology called and said he has peritonitis and 6cm abscess in pelvic area, no signs of perforation Diagnosis Sepsis due to Pelvic abscess and peritonitis Community-acquired pneumonia Hepatic encephalopathy Hypokalemia Mild anemia Marked leukocytosis Etoh liver disease CAP Hypokalemia Hyponatremia hypomagnesemia beer potomonia PLAN Received empiric antibiotics, IV fluids, GS consulted to evaluate abscess,pernell mmended IR drainage, IR drainage with SARAVANAN drain placement done 09/10/18 fup cultures, ID consult He received lactulose, repeat ammonia level is now within normal limits Liver function tests are normal, which may be the case in advanced chronic liver disease hepatitis serologies negative GI input appreciated, cont medical mgt k and mg was repleted Low Na due to beer potomania, change to NS DVT prophylaxis with Lovenox History Interval history: Review of systems Constitutional: No fevers, no malaise, no joint pains CVS: No chest pain, no orthopnea, no dyspnea on exertion, no pedal edema GI: c/o diffuse abdominal pain Respiratory: No shortness of breath, no wheezing, no coughing Hospitalist Physical - Physical exam Narrative exam: General.: no distress HEENT: Moist mucous membranes, extraocular muscles intact, no lymphadenopathy Neck: supple Cardiac: S1-S2 heard Lungs: clear to auscultation bilaterally Abdomen: soft , tender, nondistended, bowel sounds positive SARAVANAN drain noted with purulent liquid Extremities: no edema clubbing or cyanosis Skin: no rash or lesions Neurologic: no gross focal deficits Psych: calm, and cooperative - Constitutional Vitals: Temp Pulse Resp BP Pulse Ox 99.9 F H 90 16 101/72 96 09/12/18 11:44 09/12/18 11:44 09/12/18 11:44 09/12/18 11:44 09/12/18 11:44 General appearance: Present: no acute distress Results - Labs CBC & Chem 7: 09/11/18 05:18 09/12/18 04:34 Labs: Laboratory Last Values WBC 19.7 K/mm3 (4.5-11.0) H 09/11/18 05:18 RBC 3.17 M/mm3 (3.65-5.03) L 09/11/18 05:18 Hgb 9.3 gm/dl (11.8-15.2) L 09/11/18 05:18 Hct 28.1 % (35.5-45.6) L 09/11/18 05:18 MCV 89 fl (84-94) 09/11/18 05:18 MCH 29 pg (28-32) 09/11/18 05:18 MCHC 33 % (32-34) 09/11/18 05:18 RDW 13.5 % (13.2-15.2) 09/11/18 05:18 Plt Count 165 K/mm3 (140-440) 09/11/18 05:18 Add Manual Diff Complete 09/11/18 05:18 Total Counted 100 09/11/18 05:18 Seg Neuts % (Manual) 73.0 % (40.0-70.0) H 09/11/18 05:18 Band Neutrophils % 6.0 % 09/11/18 05:18 Lymphocytes % (Manual) 9.0 % (13.4-35.0) L 09/11/18 05:18 Reactive Lymphs % (Man) 0 % 09/11/18 05:18 Monocytes % (Manual) 8.0 % (0.0-7.3) H 09/11/18 05:18 Eosinophils % (Manual) 0 % (0.0-4.3) 09/11/18 05:18 Basophils % (Manual) 0 % (0.0-1.8) 09/11/18 05:18 Metamyelocytes % 0 % 09/11/18 05:18 Myelocytes % 4.0 % 09/11/18 05:18 Promyelocytes % 0 % 09/11/18 05:18 Blast Cells % 0 % 09/11/18 05:18 Nucleated RBC % Not Reportable 09/11/18 05:18 Seg Neutrophils # Man 14.4 K/mm3 (1.8-7.7) H 09/11/18 05:18 Band Neutrophils # 1.2 K/mm3 09/11/18 05:18 Lymphocytes # (Manual) 1.8 K/mm3 (1.2-5.4) 09/11/18 05:18 Abs React Lymphs (Man) 0.0 K/mm3 09/11/18 05:18 Monocytes # (Manual) 1.6 K/mm3 (0.0-0.8) H 09/11/18 05:18 Eosinophils # (Manual) 0.0 K/mm3 (0.0-0.4) 09/11/18 05:18 Basophils # (Manual) 0.0 K/mm3 (0.0-0.1) 09/11/18 05:18 Metamyelocytes # 0.0 K/mm3 09/11/18 05:18 Myelocytes # 0.8 K/mm3 09/11/18 05:18 Promyelocytes # 0.0 K/mm3 09/11/18 05:18 Blast Cells # 0.0 K/mm3 09/11/18 05:18 WBC Morphology Not Reportable 09/11/18 05:18 Hypersegmented Neuts Not Reportable 09/11/18 05:18 Hyposegmented Neuts Not Reportable 09/11/18 05:18 Hypogranular Neuts Not Reportable 09/11/18 05:18 Smudge Cells Not Reportable 09/11/18 05:18 Toxic Granulation Not Reportable 09/11/18 05:18 Toxic Vacuolation Not Reportable 09/11/18 05:18 Dohle Bodies Not Reportable 09/11/18 05:18 Pelger-Huet Anomaly Not Reportable 09/11/18 05:18 Deepali Rods Not Reportable 09/11/18 05:18 Platelet Estimate Appears normal 09/11/18 05:18 Clumped Platelets Not Reportable 09/11/18 05:18 Plt Clumps, EDTA Not Reportable 09/11/18 05:18 Large Platelets Few 09/11/18 05:18 Giant Platelets Not Reportable 09/11/18 05:18 Platelet Satelliting Not Reportable 09/11/18 05:18 Plt Morphology Comment Not Reportable 09/11/18 05:18 RBC Morphology Not Reportable 09/11/18 05:18 Dimorphic RBCs Not Reportable 09/11/18 05:18 Polychromasia Not Reportable 09/11/18 05:18 Hypochromasia 1+ 09/11/18 05:18 Poikilocytosis Not Reportable 09/11/18 05:18 Anisocytosis 1+ 09/11/18 05:18 Microcytosis Not Reportable 09/11/18 05:18 Macrocytosis Not Reportable 09/11/18 05:18 Spherocytes Not Reportable 09/11/18 05:18 Pappenheimer Bodies Not Reportable 09/11/18 05:18 Sickle Cells Not Reportable 09/11/18 05:18 Target Cells Few 09/11/18 05:18 Tear Drop Cells Not Reportable 09/11/18 05:18 Ovalocytes Not Reportable 09/11/18 05:18 Helmet Cells Not Reportable 09/11/18 05:18 Fuentes-[place] Bodies Not Reportable 09/11/18 05:18 [place] Rings Not Reportable 09/11/18 05:18 [place] Cells Not Reportable 09/11/18 05:18 Bite Cells Not Reportable 09/11/18 05:18 Crenated Cell Not Reportable 09/11/18 05:18 Elliptocytes Not Reportable 09/11/18 05:18 Acanthocytes (Spur) Not Reportable 09/11/18 05:18 Rouleaux Not Reportable 09/11/18 05:18 Hemoglobin C Crystals Not Reportable 09/11/18 05:18 Schistocytes Not Reportable 09/11/18 05:18 Malaria parasites Not Reportable 09/11/18 05:18 Tristian Bodies Not Reportable 09/11/18 05:18 Hem Pathologist Commnt No 09/11/18 05:18 PT 17.1 Sec. (12.2-14.9) H 09/11/18 05:18 INR 1.35 (0.87-1.13) H 09/11/18 05:18 Sodium 132 mmol/L (137-145) L 09/12/18 04:34 Potassium 3.7 mmol/L (3.6-5.0) D 09/12/18 04:34 Chloride 103.1 mmol/L (98-107) 09/12/18 04:34 Carbon Dioxide 21 mmol/L (22-30) L 09/12/18 04:34 Anion Gap 12 mmol/L 09/12/18 04:34 BUN 3 mg/dL (9-20) L 09/12/18 04:34 Creatinine 0.7 mg/dL (0.8-1.5) L 09/12/18 04:34 Estimated GFR > 60 ml/min 09/12/18 04:34 BUN/Creatinine Ratio 4 % 09/12/18 04:34 Glucose 105 mg/dL (75-100) H 09/12/18 04:34 POC Glucose 107 (70-105) H 09/08/18 14:08 Lactic Acid 1.40 mmol/L (0.7-2.0) 09/09/18 05:40 Calcium 6.9 mg/dL (8.4-10.2) L 09/12/18 04:34 Magnesium 1.70 mg/dL (1.7-2.3) 09/12/18 04:34 Total Bilirubin 1.60 mg/dL (0.1-1.2) H 09/11/18 05:18 AST 25 units/L (5-40) 09/11/18 05:18 ALT 19 units/L (7-56) 09/11/18 05:18 Alkaline Phosphatase 113 units/L (35-129) 09/11/18 05:18 Ammonia 32.0 umol/L (25-60) 09/12/18 09:29 Troponin T < 0.010 ng/mL (0.00-0.029) 09/08/18 14:23 C-Reactive Protein 5.40 mg/dL (0.00-1.30) H 09/10/18 21:37 Total Protein 5.9 g/dL (6.3-8.2) L 09/11/18 05:18 Albumin 1.9 g/dL (3.9-5) L 09/11/18 05:18 Albumin/Globulin Ratio 0.5 % 09/11/18 05:18 Lipase 104 units/L (13-60) H 09/08/18 14:23 TSH 4.490 mlU/mL (0.270-4.200) H 09/08/18 14:23 Free T4 0.93 ng/dL (0.76-1.46) 09/08/18 16:10 Urine Color Brianne (Yellow) 09/08/18 14:39 Urine Turbidity Clear (Clear) 09/08/18 14:39 Urine pH 5.0 (5.0-7.0) 09/08/18 14:39 Ur Specific [place] 1.011 (1.003-1.030) 09/08/18 14:39 Urine Protein <15 mg/dl mg/dL (Negative) 09/08/18 14:39 Urine Glucose (UA) Neg mg/dL (Negative) 09/08/18 14:39 Urine Ketones Tr mg/dL (Negative) 09/08/18 14:39 Urine Blood Neg (Negative) 09/08/18 14:39 Urine Nitrite Neg (Negative) 09/08/18 14:39 Urine Bilirubin Neg (Negative) 09/08/18 14:39 Urine Urobilinogen 2.0 mg/dL (<2.0) 09/08/18 14:39 Ur Leukocyte Esterase Neg (Negative) 09/08/18 14:39 Urine WBC (Auto) 1.0 /HPF (0.0-6.0) 09/08/18 14:39 Urine RBC (Auto) < 1.0 /HPF (0.0-6.0) 09/08/18 14:39 Salicylates < 0.3 mg/dL (2.8-20.0) L 09/08/18 16:10 Urine Opiates Screen Presumptive negative 09/08/18 14:39 Urine Methadone Screen Presumptive negative 09/08/18 14:39 Acetaminophen < 5.0 ug/mL (10.0-30.0) L 09/08/18 16:10 Ur Barbiturates Screen Presumptive negative 09/08/18 14:39 Ur Phencyclidine Scrn Presumptive negative 09/08/18 14:39 Ur Amphetamines Screen Presumptive negative 09/08/18 14:39 U Benzodiazepines Scrn Presumptive negative 09/08/18 14:39 Urine Cocaine Screen Presumptive negative 09/08/18 14:39 U Marijuana (THC) Screen Presumptive negative 09/08/18 14:39 Drugs of Abuse Note Disclamer 09/08/18 14:39 Plasma/Serum Alcohol < 0.01 % (0-0.07) 09/08/18 14:23 Hepatitis A IgM Ab Non-reactive (NonReactive) 09/08/18 16:10 Hep Bs Antigen Non-reactive (Negative) 09/08/18 16:10 Hep B Core IgM Ab Non-reactive (NonReactive) 09/08/18 16:10 Hepatitis C Antibody Non-reactive (NonReactive) 09/08/18 16:10 HIV 1&2 Antibody Rapid Non react (Non React) 09/10/18 21:37 HIV P24 Antigen Non react (Non React) 09/10/18 21:37 Nutrition/Malnutrition Assess - Dietary Evaluation Nutrition/Malnutrition Findings: Nutrition Notes Start: 09/09/18 15:10 Freq: Status: Active Protocol: Document 09/11/18 14:50 RM (Rec: 09/11/18 14:52 RM [id number]) Nutrition Notes Initial or Follow up Reassessment Current Diagnosis Acute Kidney Injury Other Pertinent Diagnosis ? hepatic encephalopathy, ETOH dependence, Pelvic abscess Current Diet Vegetarian Labs/Tests Reviewed Pertinent Medications Reviewed Height 5 ft 7 in Weight 54.2 kg Spring Body Weight (kg) 67.27 BMI 18.7 Weight change and time frame Previously wt likely inaccurate d/t human error Subjective/Other Information Unable to order Ensure Enlive from previous visit d/t pt NPO status Charger had difficulty communicating with pt. Unclear whether pt does not speak serbian well and/or he was confused at time of visit. Pt stated that he speaks Gujarati so attempted to use interpretive services but pt did not seem to understand procurement accountant either. Pt declined to continue using interpretive services. Pt did state that he does not eat meat and is willing to try Ensure to help meet protein needs. Unsure of UBW. Per nurse pt eats all of his meals and confirmed that pt does not eat meat. Burn Absent Trauma Absent #2 Nutrition Diagnosis Inadequate protein intake Etiology food preferences As Evidenced by Signs and Symptoms pt on vegetarian diet #1 Nutrition Diagnosis Predicted suboptimal energy intake As Evidenced by Signs and Symptoms nurse statement that pt eats all of his meals Diagnosis Progress(for reassessment Improved documentation) Is patient on ventilator? No Is Patient Ambulatory and/or Out of Bed No REE-([facility]-confined to bed) 1672.320 Kcal/Kg value to use for calculation 46 Approximate Energy Requirements Using 2493 kcal/Kg Calculation Used for Recommendations Kcal/kg Additional Notes Protein Needs: 54-70g (1-1.3g/ kg) Fluid Needs: 1 ml/kcal Nutrition Intervention Change Diet Order: Continue current Add Supplement/Snack (indicate name/kcal Ensure Enlive 1 daily /protein ) Provides kCal: 350 Provides Protein (gm) 20 Goal #1 ONS tolerance Goal #2 Meet at least 75% of calorie and protein needs via PO and ONS intakes Anticipated Discharge Needs: Vegetarian diet Follow-Up By: 09/16/18 Additional Comments Follow for PO and ONS intakes
--- NOTE | 2018-09-12 16:06 | Progress Note ---
Assessment and Plan - Patient Problems (1) Pelvic abscess in male Current Visit: Yes Status: Acute Plan to address problem: Pt stable. Patient remains perfectly stable. Vital signs are normal. He tolerated a regular diet last night. WBC better. About 50cc of pus was drained from pelvis - GPC so far. abdomen remains fairly benign. Cont with abx. Diet as tolerated. Encourage ambulation. Agree with repeat CT on Saturday. Would do with IV and PO contrast. Will see again on Saturday. Please call with questions. Time=10min Subjective Date of service: 09/12/18 Patient Reports: Positive: feels better (no pain). Negative: nausea, vomiting Objective Vital Signs - 12hr 09/12/18 09/12/18 09/12/18 05:34 10:00 11:44 Temperature 99.5 F 99.9 F H Pulse Rate 93 H 90 Respiratory 18 16 Rate Blood Pressure 103/69 Blood Pressure 101/72 [Left] O2 Sat by Pulse 96 97 96 Oximetry - General physical appearance no distress, no pain, other (looks better. Interactions are more appropriate now. No perseveration today) - Eyes normal occular movement - Respiratory normal expansion, normal respiratory effort - Abdomen soft, not tender, not distended, not guarding, not rigid - Psychiatric speech is normal - Labs 09/11/18 05:18 09/12/18 04:34 Diabetes panel 09/12/18 Range/Units 04:34 Sodium 132 L (137-145) mmol/L Potassium 3.7 D (3.6-5.0) mmol/L Chloride 103.1 (98-107) mmol/L Carbon Dioxide 21 L (22-30) mmol/L BUN 3 L (9-20) mg/dL Creatinine 0.7 L (0.8-1.5) mg/dL Glucose 105 H (75-100) mg/dL Calcium 6.9 L (8.4-10.2) mg/dL Calcium panel 09/12/18 Range/Units 04:34 Calcium 6.9 L (8.4-10.2) mg/dL Pituitary panel 09/12/18 Range/Units 04:34 Sodium 132 L (137-145) mmol/L Potassium 3.7 D (3.6-5.0) mmol/L Chloride 103.1 (98-107) mmol/L Carbon Dioxide 21 L (22-30) mmol/L BUN 3 L (9-20) mg/dL Creatinine 0.7 L (0.8-1.5) mg/dL Glucose 105 H (75-100) mg/dL Calcium 6.9 L (8.4-10.2) mg/dL Adrenal panel 09/12/18 Range/Units 04:34 Sodium 132 L (137-145) mmol/L Potassium 3.7 D (3.6-5.0) mmol/L Chloride 103.1 (98-107) mmol/L Carbon Dioxide 21 L (22-30) mmol/L BUN 3 L (9-20) mg/dL Creatinine 0.7 L (0.8-1.5) mg/dL Glucose 105 H (75-100) mg/dL Calcium 6.9 L (8.4-10.2) mg/dL
[2018-09-13 06:18] LABS: BUN/Creatinine Ratio 3; Blood Urea Nitrogen 2 mg/dL (9-20); Calcium 7.1 mg/dL (8.4-10.2); Hemolysis Index 2
[2018-09-13] MEDS: NACL 0.9% 1000 ML 1,000 ML IV SCH (06:31)
[2018-09-13] MEDS: ZOSYN/NS 4.5GM/100ML 4.5 GM/100 ML VIAL IV SCH ×3 (08:09→23:23)
[2018-09-13] MEDS ORDERED: MAGNESIUM SULFATE 4GM/100ML 4 GM/100 ML BAG IV ONE (10:00)
[2018-09-13] MEDS: SODIUM CHLORIDE FLUSH SYRINGE 10 ML IV SCH ×2 (12:34→21:54)
--- NOTE | 2018-09-13 14:54 | Progress Note ---
Assessment and Plan Assessment and plan: 43-year-old man with a known past medical history. Brought to the emergency room with altered mental status, decreased responsiveness per EMS he was staying at a local motel and per the motel staff he had been sick for a few days, and it was found unresponsive . At the time of presentation the patient was confused and lethargic and in soiled underwear. After lactulose he improved, admits to heavy etoh drinking , lives in the motel, c/o diffuse abdominal pain Labs reviewed, Ammonia in 200s on arrival, LFts wnl, etoh level neg UDS negative, hepatitis serology negative, UA negative labs show marked leukocytosis, slightly elevated TSh, but normal T4 Imaging; Chest x-ray shows left base pneumonia CT head shows no acute findings CT A/P; no image or report in EMR, but per RN, radiology called and said he has peritonitis and 6cm abscess in pelvic area, no signs of perforation Diagnosis Sepsis due to Pelvic abscess and peritonitis Community-acquired pneumonia Hepatic encephalopathy Hypokalemia Mild anemia Marked leukocytosis Etoh liver disease CAP Hypokalemia Hyponatremia hypomagnesemia beer potomonia PLAN Received empiric antibiotics, IV fluids, GS input appreciated , sp IR drainage with SARAVANAN drain placement done 09/10/18; repeat CT A/P on Saturday abx per ID He received lactulose, repeat ammonia level is now within normal limits Liver function tests are normal, which may be the case in advanced chronic liver disease hepatitis serologies negative GI input appreciated, cont medical mgt k and mg was repleted Low Na due to beer potomania, improved with NS DVT prophylaxis with Lovenox History Interval history: Review of systems Constitutional: No fevers, no malaise, no joint pains CVS: No chest pain, no orthopnea, no dyspnea on exertion, no pedal edema GI: abdominal pain has resolved Respiratory: No shortness of breath, no wheezing, no coughing Hospitalist Physical - Physical exam Narrative exam: General.: no distress HEENT: Moist mucous membranes, extraocular muscles intact, no lymphadenopathy Neck: supple Cardiac: S1-S2 heard Lungs: clear to auscultation bilaterally Abdomen: soft , tender, nondistended, bowel sounds positive Extremities: no edema clubbing or cyanosis Skin: no rash or lesions Neurologic: no gross focal deficits Psych: calm, and cooperative - Constitutional Vitals: Temp Pulse Resp BP Pulse Ox 98.7 F 96 H 16 110/70 94 09/13/18 05:14 09/13/18 12:21 09/13/18 12:21 09/13/18 12:21 09/13/18 12:21 General appearance: Present: no acute distress Results - Labs CBC & Chem 7: 09/11/18 05:18 09/13/18 05:36 Labs: Laboratory Last Values WBC 19.7 K/mm3 (4.5-11.0) H 09/11/18 05:18 RBC 3.17 M/mm3 (3.65-5.03) L 09/11/18 05:18 Hgb 9.3 gm/dl (11.8-15.2) L 09/11/18 05:18 Hct 28.1 % (35.5-45.6) L 09/11/18 05:18 MCV 89 fl (84-94) 09/11/18 05:18 MCH 29 pg (28-32) 09/11/18 05:18 MCHC 33 % (32-34) 09/11/18 05:18 RDW 13.5 % (13.2-15.2) 09/11/18 05:18 Plt Count 165 K/mm3 (140-440) 09/11/18 05:18 Add Manual Diff Complete 09/11/18 05:18 Total Counted 100 09/11/18 05:18 Seg Neuts % (Manual) 73.0 % (40.0-70.0) H 09/11/18 05:18 Band Neutrophils % 6.0 % 09/11/18 05:18 Lymphocytes % (Manual) 9.0 % (13.4-35.0) L 09/11/18 05:18 Reactive Lymphs % (Man) 0 % 09/11/18 05:18 Monocytes % (Manual) 8.0 % (0.0-7.3) H 09/11/18 05:18 Eosinophils % (Manual) 0 % (0.0-4.3) 09/11/18 05:18 Basophils % (Manual) 0 % (0.0-1.8) 09/11/18 05:18 Metamyelocytes % 0 % 09/11/18 05:18 Myelocytes % 4.0 % 09/11/18 05:18 Promyelocytes % 0 % 09/11/18 05:18 Blast Cells % 0 % 09/11/18 05:18 Nucleated RBC % Not Reportable 09/11/18 05:18 Seg Neutrophils # Man 14.4 K/mm3 (1.8-7.7) H 09/11/18 05:18 Band Neutrophils # 1.2 K/mm3 09/11/18 05:18 Lymphocytes # (Manual) 1.8 K/mm3 (1.2-5.4) 09/11/18 05:18 Abs React Lymphs (Man) 0.0 K/mm3 09/11/18 05:18 Monocytes # (Manual) 1.6 K/mm3 (0.0-0.8) H 09/11/18 05:18 Eosinophils # (Manual) 0.0 K/mm3 (0.0-0.4) 09/11/18 05:18 Basophils # (Manual) 0.0 K/mm3 (0.0-0.1) 09/11/18 05:18 Metamyelocytes # 0.0 K/mm3 09/11/18 05:18 Myelocytes # 0.8 K/mm3 09/11/18 05:18 Promyelocytes # 0.0 K/mm3 09/11/18 05:18 Blast Cells # 0.0 K/mm3 09/11/18 05:18 WBC Morphology Not Reportable 09/11/18 05:18 Hypersegmented Neuts Not Reportable 09/11/18 05:18 Hyposegmented Neuts Not Reportable 09/11/18 05:18 Hypogranular Neuts Not Reportable 09/11/18 05:18 Smudge Cells Not Reportable 09/11/18 05:18 Toxic Granulation Not Reportable 09/11/18 05:18 Toxic Vacuolation Not Reportable 09/11/18 05:18 Dohle Bodies Not Reportable 09/11/18 05:18 Pelger-Huet Anomaly Not Reportable 09/11/18 05:18 Deepali Rods Not Reportable 09/11/18 05:18 Platelet Estimate Appears normal 09/11/18 05:18 Clumped Platelets Not Reportable 09/11/18 05:18 Plt Clumps, EDTA Not Reportable 09/11/18 05:18 Large Platelets Few 09/11/18 05:18 Giant Platelets Not Reportable 09/11/18 05:18 Platelet Satelliting Not Reportable 09/11/18 05:18 Plt Morphology Comment Not Reportable 09/11/18 05:18 RBC Morphology Not Reportable 09/11/18 05:18 Dimorphic RBCs Not Reportable 09/11/18 05:18 Polychromasia Not Reportable 09/11/18 05:18 Hypochromasia 1+ 09/11/18 05:18 Poikilocytosis Not Reportable 09/11/18 05:18 Anisocytosis 1+ 09/11/18 05:18 Microcytosis Not Reportable 09/11/18 05:18 Macrocytosis Not Reportable 09/11/18 05:18 Spherocytes Not Reportable 09/11/18 05:18 Pappenheimer Bodies Not Reportable 09/11/18 05:18 Sickle Cells Not Reportable 09/11/18 05:18 Target Cells Few 09/11/18 05:18 Tear Drop Cells Not Reportable 09/11/18 05:18 Ovalocytes Not Reportable 09/11/18 05:18 Helmet Cells Not Reportable 09/11/18 05:18 Fuentes-[place] Bodies Not Reportable 09/11/18 05:18 [place] Rings Not Reportable 09/11/18 05:18 [place] Cells Not Reportable 09/11/18 05:18 Bite Cells Not Reportable 09/11/18 05:18 Crenated Cell Not Reportable 09/11/18 05:18 Elliptocytes Not Reportable 09/11/18 05:18 Acanthocytes (Spur) Not Reportable 09/11/18 05:18 Rouleaux Not Reportable 09/11/18 05:18 Hemoglobin C Crystals Not Reportable 09/11/18 05:18 Schistocytes Not Reportable 09/11/18 05:18 Malaria parasites Not Reportable 09/11/18 05:18 [place] Bodies Not Reportable 09/11/18 05:18 Hem Pathologist Commnt No 09/11/18 05:18 PT 17.1 Sec. (12.2-14.9) H 09/11/18 05:18 INR 1.35 (0.87-1.13) H 09/11/18 05:18 Sodium 131 mmol/L (137-145) L 09/13/18 05:36 Potassium 3.6 mmol/L (3.6-5.0) 09/13/18 05:36 Chloride 100.3 mmol/L (98-107) 09/13/18 05:36 Carbon Dioxide 22 mmol/L (22-30) 09/13/18 05:36 Anion Gap 12 mmol/L 09/13/18 05:36 BUN 2 mg/dL (9-20) L 09/13/18 05:36 Creatinine 0.7 mg/dL (0.8-1.5) L 09/13/18 05:36 Estimated GFR > 60 ml/min 09/13/18 05:36 BUN/Creatinine Ratio 3 % 09/13/18 05:36 Glucose 93 mg/dL (75-100) 09/13/18 05:36 POC Glucose 107 (70-105) H 09/08/18 14:08 Lactic Acid 1.40 mmol/L (0.7-2.0) 09/09/18 05:40 Calcium 7.1 mg/dL (8.4-10.2) L 09/13/18 05:36 Magnesium 1.40 mg/dL (1.7-2.3) L 09/13/18 05:36 Total Bilirubin 1.60 mg/dL (0.1-1.2) H 09/11/18 05:18 AST 25 units/L (5-40) 09/11/18 05:18 ALT 19 units/L (7-56) 09/11/18 05:18 Alkaline Phosphatase 113 units/L (35-129) 09/11/18 05:18 Ammonia 43.0 umol/L (25-60) 09/13/18 09:34 Troponin T < 0.010 ng/mL (0.00-0.029) 09/08/18 14:23 C-Reactive Protein 5.40 mg/dL (0.00-1.30) H 09/10/18 21:37 Total Protein 5.9 g/dL (6.3-8.2) L 09/11/18 05:18 Albumin 1.9 g/dL (3.9-5) L 09/11/18 05:18 Albumin/Globulin Ratio 0.5 % 09/11/18 05:18 Lipase 104 units/L (13-60) H 09/08/18 14:23 TSH 4.490 mlU/mL (0.270-4.200) H 09/08/18 14:23 Free T4 0.93 ng/dL (0.76-1.46) 09/08/18 16:10 Urine Color Brianne (Yellow) 09/08/18 14:39 Urine Turbidity Clear (Clear) 09/08/18 14:39 Urine pH 5.0 (5.0-7.0) 09/08/18 14:39 Ur Specific [place] 1.011 (1.003-1.030) 09/08/18 14:39 Urine Protein <15 mg/dl mg/dL (Negative) 09/08/18 14:39 Urine Glucose (UA) Neg mg/dL (Negative) 09/08/18 14:39 Urine Ketones Tr mg/dL (Negative) 09/08/18 14:39 Urine Blood Neg (Negative) 09/08/18 14:39 Urine Nitrite Neg (Negative) 09/08/18 14:39 Urine Bilirubin Neg (Negative) 09/08/18 14:39 Urine Urobilinogen 2.0 mg/dL (<2.0) 09/08/18 14:39 Ur Leukocyte Esterase Neg (Negative) 09/08/18 14:39 Urine WBC (Auto) 1.0 /HPF (0.0-6.0) 09/08/18 14:39 Urine RBC (Auto) < 1.0 /HPF (0.0-6.0) 09/08/18 14:39 Salicylates < 0.3 mg/dL (2.8-20.0) L 09/08/18 16:10 Urine Opiates Screen Presumptive negative 09/08/18 14:39 Urine Methadone Screen Presumptive negative 09/08/18 14:39 Acetaminophen < 5.0 ug/mL (10.0-30.0) L 09/08/18 16:10 Ur Barbiturates Screen Presumptive negative 09/08/18 14:39 Ur Phencyclidine Scrn Presumptive negative 09/08/18 14:39 Ur Amphetamines Screen Presumptive negative 09/08/18 14:39 U Benzodiazepines Scrn Presumptive negative 09/08/18 14:39 Urine Cocaine Screen Presumptive negative 09/08/18 14:39 U Marijuana (THC) Screen Presumptive negative 09/08/18 14:39 Drugs of Abuse Note Disclamer 09/08/18 14:39 Plasma/Serum Alcohol < 0.01 % (0-0.07) 09/08/18 14:23 Hepatitis A IgM Ab Non-reactive (NonReactive) 09/08/18 16:10 Hep Bs Antigen Non-reactive (Negative) 09/08/18 16:10 Hep B Core IgM Ab Non-reactive (NonReactive) 09/08/18 16:10 Hepatitis C Antibody Non-reactive (NonReactive) 09/08/18 16:10 HIV 1&2 Antibody Rapid Non react (Non React) 09/10/18 21:37 HIV P24 Antigen Non react (Non React) 09/10/18 21:37 Nutrition/Malnutrition Assess - Dietary Evaluation Nutrition/Malnutrition Findings: Nutrition Notes Start: 09/09/18 15:10 Freq: Status: Active Protocol: Document 09/11/18 14:50 RM (Rec: 09/11/18 14:52 RM [id number]) Nutrition Notes Initial or Follow up Reassessment Current Diagnosis Acute Kidney Injury Other Pertinent Diagnosis ? hepatic encephalopathy, ETOH dependence, Pelvic abscess Current Diet Vegetarian Labs/Tests Reviewed Pertinent Medications Reviewed Height 5 ft 7 in Weight 54.2 kg [place] Body Weight (kg) 67.27 BMI 18.7 Weight change and time frame Previously wt likely inaccurate d/t human error Subjective/Other Information Unable to order Ensure Enlive from previous visit d/t pt NPO status Microelectronics Assembler had difficulty communicating with pt. Unclear whether pt does not speak kiswahili well and/or he was confused at time of visit. Pt stated that he speaks Gujarati so attempted to use interpretive services but pt did not seem to understand cheese maker either. Pt declined to continue using interpretive services. Pt did state that he does not eat meat and is willing to try Ensure to help meet protein needs. Unsure of UBW. Per nurse pt eats all of his meals and confirmed that pt does not eat meat. Burn Absent Trauma Absent #2 Nutrition Diagnosis Inadequate protein intake Etiology food preferences As Evidenced by Signs and Symptoms pt on vegetarian diet #1 Nutrition Diagnosis Predicted suboptimal energy intake As Evidenced by Signs and Symptoms nurse statement that pt eats all of his meals Diagnosis Progress(for reassessment Improved documentation) Is patient on ventilator? No Is Patient Ambulatory and/or Out of Bed No REE-([place]-. [facility]-confined to bed) 1672.320 Kcal/Kg value to use for calculation 46 Approximate Energy Requirements Using 2493 kcal/Kg Calculation Used for Recommendations Kcal/kg Additional Notes Protein Needs: 54-70g (1-1.3g/ kg) Fluid Needs: 1 ml/kcal Nutrition Intervention Change Diet Order: Continue current Add Supplement/Snack (indicate name/kcal Ensure Enlive 1 daily /protein ) Provides kCal: 350 Provides Protein (gm) 20 Goal #1 ONS tolerance Goal #2 Meet at least 75% of calorie and protein needs via PO and ONS intakes Anticipated Discharge Needs: Vegetarian diet Follow-Up By: 09/16/18 Additional Comments Follow for PO and ONS intakes
[2018-09-14] MEDS: NACL 0.9% 1000 ML 1,000 ML IV SCH (01:56)
[2018-09-14 05:07] LABS: BUN/Creatinine Ratio 3; Blood Urea Nitrogen 2 mg/dL (9-20); Calcium 6.8 mg/dL (8.4-10.2); Hemolysis Index 1
[2018-09-14] MEDS ORDERED: K-DUR PO ONE ×4 (10:08→17:00)
--- NOTE | 2018-09-14 10:50 | Progress Note ---
Assessment and Plan Assessment and plan: 43-year-old man with a known past medical history. Brought to the emergency room with altered mental status, decreased responsiveness per EMS he was staying at a local motel and per the motel staff he had been sick for a few days, and it was found unresponsive . At the time of presentation the patient was confused and lethargic and in soiled underwear. After lactulose he improved, admits to heavy etoh drinking , lives in the motel, c/o diffuse abdominal pain Labs reviewed, Ammonia in 200s on arrival, LFts wnl, etoh level neg UDS negative, hepatitis serology negative, UA negative labs show marked leukocytosis, slightly elevated TSh, but normal T4 Imaging; Chest x-ray shows left base pneumonia CT head shows no acute findings CT A/P; no image or report in EMR, but per RN, radiology called and said he has peritonitis and 6cm abscess in pelvic area, no signs of perforation Diagnosis Sepsis due to Pelvic abscess and peritonitis Community-acquired pneumonia Hepatic encephalopathy Hypokalemia Mild anemia Marked leukocytosis Etoh liver disease CAP Hypokalemia Hyponatremia hypomagnesemia beer potomonia PLAN Received empiric antibiotics, IV fluids, GS input appreciated , sp IR drainage with SARAVANAN drain placement done 09/10/18; repeat CT A/P on Saturday abx per ID He received lactulose, repeat ammonia level is now within normal limits Liver function tests are normal, which may be the case in advanced chronic liver disease hepatitis serologies negative GI input appreciated, cont medical mgt k and mg was repleted Low Na due to beer potomania, improved with NS DVT prophylaxis with Lovenox History Interval history: Review of systems Constitutional: No fevers, no malaise, no joint pains CVS: No chest pain, no orthopnea, no dyspnea on exertion, no pedal edema GI: abdominal pain has resolved Respiratory: No shortness of breath, no wheezing, no coughing Hospitalist Physical - Physical exam Narrative exam: General.: no distress HEENT: Moist mucous membranes, extraocular muscles intact, no lymphadenopathy Neck: supple Cardiac: S1-S2 heard Lungs: clear to auscultation bilaterally Abdomen: soft , tender, nondistended, bowel sounds positive Extremities: no edema clubbing or cyanosis Skin: no rash or lesions Neurologic: no gross focal deficits Psych: calm, and cooperative - Constitutional Vitals: Temp Pulse Resp BP Pulse Ox 98.8 F 82 18 101/54 97 09/14/18 05:37 09/14/18 05:37 09/14/18 05:37 09/14/18 05:37 09/14/18 05:37 General appearance: Present: no acute distress Results - Labs CBC & Chem 7: 09/11/18 05:18 09/14/18 03:51 Labs: Laboratory Last Values WBC 19.7 K/mm3 (4.5-11.0) H 09/11/18 05:18 RBC 3.17 M/mm3 (3.65-5.03) L 09/11/18 05:18 Hgb 9.3 gm/dl (11.8-15.2) L 09/11/18 05:18 Hct 28.1 % (35.5-45.6) L 09/11/18 05:18 MCV 89 fl (84-94) 09/11/18 05:18 MCH 29 pg (28-32) 09/11/18 05:18 MCHC 33 % (32-34) 09/11/18 05:18 RDW 13.5 % (13.2-15.2) 09/11/18 05:18 Plt Count 165 K/mm3 (140-440) 09/11/18 05:18 Add Manual Diff Complete 09/11/18 05:18 Total Counted 100 09/11/18 05:18 Seg Neuts % (Manual) 73.0 % (40.0-70.0) H 09/11/18 05:18 Band Neutrophils % 6.0 % 09/11/18 05:18 Lymphocytes % (Manual) 9.0 % (13.4-35.0) L 09/11/18 05:18 Reactive Lymphs % (Man) 0 % 09/11/18 05:18 Monocytes % (Manual) 8.0 % (0.0-7.3) H 09/11/18 05:18 Eosinophils % (Manual) 0 % (0.0-4.3) 09/11/18 05:18 Basophils % (Manual) 0 % (0.0-1.8) 09/11/18 05:18 Metamyelocytes % 0 % 09/11/18 05:18 Myelocytes % 4.0 % 09/11/18 05:18 Promyelocytes % 0 % 09/11/18 05:18 Blast Cells % 0 % 09/11/18 05:18 Nucleated RBC % Not Reportable 09/11/18 05:18 Seg Neutrophils # Man 14.4 K/mm3 (1.8-7.7) H 09/11/18 05:18 Band Neutrophils # 1.2 K/mm3 09/11/18 05:18 Lymphocytes # (Manual) 1.8 K/mm3 (1.2-5.4) 09/11/18 05:18 Abs React Lymphs (Man) 0.0 K/mm3 09/11/18 05:18 Monocytes # (Manual) 1.6 K/mm3 (0.0-0.8) H 09/11/18 05:18 Eosinophils # (Manual) 0.0 K/mm3 (0.0-0.4) 09/11/18 05:18 Basophils # (Manual) 0.0 K/mm3 (0.0-0.1) 09/11/18 05:18 Metamyelocytes # 0.0 K/mm3 09/11/18 05:18 Myelocytes # 0.8 K/mm3 09/11/18 05:18 Promyelocytes # 0.0 K/mm3 09/11/18 05:18 Blast Cells # 0.0 K/mm3 09/11/18 05:18 WBC Morphology Not Reportable 09/11/18 05:18 Hypersegmented Neuts Not Reportable 09/11/18 05:18 Hyposegmented Neuts Not Reportable 09/11/18 05:18 Hypogranular Neuts Not Reportable 09/11/18 05:18 Smudge Cells Not Reportable 09/11/18 05:18 Toxic Granulation Not Reportable 09/11/18 05:18 Toxic Vacuolation Not Reportable 09/11/18 05:18 Dohle Bodies Not Reportable 09/11/18 05:18 Pelger-Huet Anomaly Not Reportable 09/11/18 05:18 Deepali Rods Not Reportable 09/11/18 05:18 Platelet Estimate Appears normal 09/11/18 05:18 Clumped Platelets Not Reportable 09/11/18 05:18 Plt Clumps, EDTA Not Reportable 09/11/18 05:18 Large Platelets Few 09/11/18 05:18 Giant Platelets Not Reportable 09/11/18 05:18 Platelet Satelliting Not Reportable 09/11/18 05:18 Plt Morphology Comment Not Reportable 09/11/18 05:18 RBC Morphology Not Reportable 09/11/18 05:18 Dimorphic RBCs Not Reportable 09/11/18 05:18 Polychromasia Not Reportable 09/11/18 05:18 Hypochromasia 1+ 09/11/18 05:18 Poikilocytosis Not Reportable 09/11/18 05:18 Anisocytosis 1+ 09/11/18 05:18 Microcytosis Not Reportable 09/11/18 05:18 Macrocytosis Not Reportable 09/11/18 05:18 Spherocytes Not Reportable 09/11/18 05:18 Pappenheimer Bodies Not Reportable 09/11/18 05:18 Sickle Cells Not Reportable 09/11/18 05:18 Target Cells Few 09/11/18 05:18 Tear Drop Cells Not Reportable 09/11/18 05:18 Ovalocytes Not Reportable 09/11/18 05:18 Helmet Cells Not Reportable 09/11/18 05:18 Fuentes[place] Bodies Not Reportable 09/11/18 05:18 [place] Rings Not Reportable 09/11/18 05:18 [place] Cells Not Reportable 09/11/18 05:18 Bite Cells Not Reportable 09/11/18 05:18 Crenated Cell Not Reportable 09/11/18 05:18 Elliptocytes Not Reportable 09/11/18 05:18 Acanthocytes (Spur) Not Reportable 09/11/18 05:18 Rouleaux Not Reportable 09/11/18 05:18 Hemoglobin C Crystals Not Reportable 09/11/18 05:18 Schistocytes Not Reportable 09/11/18 05:18 Malaria parasites Not Reportable 09/11/18 05:18 [place]ist[place] Bodies Not Reportable 09/11/18 05:18 Hem Pathologist Commnt No 09/11/18 05:18 PT 17.1 Sec. (12.2-14.9) H 09/11/18 05:18 INR 1.35 (0.87-1.13) H 09/11/18 05:18 Sodium 134 mmol/L (137-145) L 09/14/18 03:51 Potassium 3.0 mmol/L (3.6-5.0) L 09/14/18 03:51 Chloride 102.3 mmol/L (98-107) 09/14/18 03:51 Carbon Dioxide 22 mmol/L (22-30) 09/14/18 03:51 Anion Gap 13 mmol/L 09/14/18 03:51 BUN 2 mg/dL (9-20) L 09/14/18 03:51 Creatinine 0.6 mg/dL (0.8-1.5) L 09/14/18 03:51 Estimated GFR > 60 ml/min 09/14/18 03:51 BUN/Creatinine Ratio 3 % 09/14/18 03:51 Glucose 94 mg/dL (75-100) 09/14/18 03:51 POC Glucose 107 (70-105) H 09/08/18 14:08 Lactic Acid 1.40 mmol/L (0.7-2.0) 09/09/18 05:40 Calcium 6.8 mg/dL (8.4-10.2) L 09/14/18 03:51 Magnesium 2.00 mg/dL (1.7-2.3) 09/14/18 03:51 Total Bilirubin 1.60 mg/dL (0.1-1.2) H 09/11/18 05:18 AST 25 units/L (5-40) 09/11/18 05:18 ALT 19 units/L (7-56) 09/11/18 05:18 Alkaline Phosphatase 113 units/L (35-129) 09/11/18 05:18 Ammonia 43.0 umol/L (25-60) 09/13/18 09:34 Troponin T < 0.010 ng/mL (0.00-0.029) 09/08/18 14:23 C-Reactive Protein 5.40 mg/dL (0.00-1.30) H 09/10/18 21:37 Total Protein 5.9 g/dL (6.3-8.2) L 09/11/18 05:18 Albumin 1.9 g/dL (3.9-5) L 09/11/18 05:18 Albumin/Globulin Ratio 0.5 % 09/11/18 05:18 Lipase 104 units/L (13-60) H 09/08/18 14:23 TSH 4.490 mlU/mL (0.270-4.200) H 09/08/18 14:23 Free T4 0.93 ng/dL (0.76-1.46) 09/08/18 16:10 Urine Color Brianne (Yellow) 09/08/18 14:39 Urine Turbidity Clear (Clear) 09/08/18 14:39 Urine pH 5.0 (5.0-7.0) 09/08/18 14:39 Ur Specific [place] 1.011 (1.003-1.030) 09/08/18 14:39 Urine Protein <15 mg/dl mg/dL (Negative) 09/08/18 14:39 Urine Glucose (UA) Neg mg/dL (Negative) 09/08/18 14:39 Urine Ketones Tr mg/dL (Negative) 09/08/18 14:39 Urine Blood Neg (Negative) 09/08/18 14:39 Urine Nitrite Neg (Negative) 09/08/18 14:39 Urine Bilirubin Neg (Negative) 09/08/18 14:39 Urine Urobilinogen 2.0 mg/dL (<2.0) 09/08/18 14:39 Ur Leukocyte Esterase Neg (Negative) 09/08/18 14:39 Urine WBC (Auto) 1.0 /HPF (0.0-6.0) 09/08/18 14:39 Urine RBC (Auto) < 1.0 /HPF (0.0-6.0) 09/08/18 14:39 Salicylates < 0.3 mg/dL (2.8-20.0) L 09/08/18 16:10 Urine Opiates Screen Presumptive negative 09/08/18 14:39 Urine Methadone Screen Presumptive negative 09/08/18 14:39 Acetaminophen < 5.0 ug/mL (10.0-30.0) L 09/08/18 16:10 Ur Barbiturates Screen Presumptive negative 09/08/18 14:39 Ur Phencyclidine Scrn Presumptive negative 09/08/18 14:39 Ur Amphetamines Screen Presumptive negative 09/08/18 14:39 U Benzodiazepines Scrn Presumptive negative 09/08/18 14:39 Urine Cocaine Screen Presumptive negative 09/08/18 14:39 U Marijuana (THC) Screen Presumptive negative 09/08/18 14:39 Drugs of Abuse Note Disclamer 09/08/18 14:39 Plasma/Serum Alcohol < 0.01 % (0-0.07) 09/08/18 14:23 Hepatitis A IgM Ab Non-reactive (NonReactive) 09/08/18 16:10 Hep Bs Antigen Non-reactive (Negative) 09/08/18 16:10 Hep B Core IgM Ab Non-reactive (NonReactive) 09/08/18 16:10 Hepatitis C Antibody Non-reactive (NonReactive) 09/08/18 16:10 HIV 1&2 Antibody Rapid Non react (Non React) 09/10/18 21:37 HIV P24 Antigen Non react (Non React) 09/10/18 21:37 Nutrition/Malnutrition Assess - Dietary Evaluation Nutrition/Malnutrition Findings: Nutrition Notes Start: 09/09/18 15:10 Freq: Status: Active Protocol: Document 09/11/18 14:50 RM (Rec: 09/11/18 14:52 RM [id number]) Nutrition Notes Initial or Follow up Reassessment Current Diagnosis Acute Kidney Injury Other Pertinent Diagnosis ? hepatic encephalopathy, ETOH dependence, Pelvic abscess Current Diet Vegetarian Labs/Tests Reviewed Pertinent Medications Reviewed Height 5 ft 7 in Weight 54.2 kg [place] Body Weight (kg) 67.27 BMI 18.7 Weight change and time frame Previously wt likely inaccurate d/t human error Subjective/Other Information Unable to order Ensure Enlive from previous visit d/t pt NPO status Felt Puller had difficulty communicating with pt. Unclear whether pt does not speak italian well and/or he was confused at time of visit. Pt stated that he speaks Gujarati so attempted to use interpretive services but pt did not seem to understand flyer builder either. Pt declined to continue using interpretive services. Pt did state that he does not eat meat and is willing to try Ensure to help meet protein needs. Unsure of UBW. Per nurse pt eats all of his meals and confirmed that pt does not eat meat. Burn Absent Trauma Absent #2 Nutrition Diagnosis Inadequate protein intake Etiology food preferences As Evidenced by Signs and Symptoms pt on vegetarian diet #1 Nutrition Diagnosis Predicted suboptimal energy intake As Evidenced by Signs and Symptoms nurse statement that pt eats all of his meals Diagnosis Progress(for reassessment Improved documentation) Is patient on ventilator? No Is Patient Ambulatory and/or Out of Bed No REE-([place]-. [facility]-confined to bed) 1672.320 Kcal/Kg value to use for calculation 46 Approximate Energy Requirements Using 2493 kcal/Kg Calculation Used for Recommendations Kcal/kg Additional Notes Protein Needs: 54-70g (1-1.3g/ kg) Fluid Needs: 1 ml/kcal Nutrition Intervention Change Diet Order: Continue current Add Supplement/Snack (indicate name/kcal Ensure Enlive 1 daily /protein ) Provides kCal: 350 Provides Protein (gm) 20 Goal #1 ONS tolerance Goal #2 Meet at least 75% of calorie and protein needs via PO and ONS intakes Anticipated Discharge Needs: Vegetarian diet Follow-Up By: 09/16/18 Additional Comments Follow for PO and ONS intakes
--- NOTE | 2018-09-14 11:00 | Progress Note ---
Assessment and Plan Cultures: 09/08/2018 blood culture no growth 09/10/2018 surgical : [facility], Beta Hemolytic Group G A/P: 43 y/o male with heavy ETOH abuse; admitted on 09/08/2018 due to be found almost unresponsive at a local motel: Sepsis:Improved. Leukocytosis continuing; etio. pelvic abscess +/- presumed pneumonia. Blood cultures 09/08/2018 no growth so far -TTE- no valvular vegetation -CRP 5.40 Pelvic abscess: of unclear etiology, there are more than one, s/p CT drainage + 50cc of purulence, Gram stain many PMNs, GPC. CT revealing peritonitis and rim- enhancing fluid collection within his pelvis. -HIV- negative Presumed pneumonia: CXR LLL consolidation vs atelectasis ? aspiration Hepatic encephalopathy: Improved. initial Ammonia 220. Viral hepatitis A, B, C negative. ETOH liver cirrhosis Recs: Continue zosyn for now as Gram stain showed GPC in chains. f/u drainage cultures -f/u CT of abdomen and pelvis with contrast on 09/15/18 - f/u on final cultures to determine antibiotic regimen upon discharge -CBC ordered for tomorrow Nevaeh Hayes NP [facility] M: [phone] O:[phone] Subjective Date of service: 09/14/18 Principal diagnosis: ETOH liver disease Interval history: Patient seen and examined. Denied generalization pain, SOB or rashes. Discussed current plan of care . Verbalized understanding. Objective - Exam Narrative Exam: Constitutional: Alert, cooperative. No acute distress Head, Ears, Nose: Normocephalic, atraumatic. External ears, nose normal Eyes: Conjunctivae/corneas clear. + icterus. No ptosis. Neck:no JVD Oral: clear Cardiovascular: RRR +murmur Respiratory: Good air entry, clear to auscultation bilaterally GI: Soft, non-tender; bowel sounds normal. Post pelvic drain +purulent Musculoskeletal: No pedal edema, no cyanosis. Skin: +drain right hip Hem/Lymphatic: No palpable cervical or supraclavicular nodes. No lymphangitis Psych: Mood ok. Flat Affect Neurological: Awake, alert, confused - Constitutional Vitals: Vital Signs Temp Pulse Resp BP Pulse Ox 98.8 F 82 18 101/54 97 09/14/18 05:37 09/14/18 05:37 09/14/18 05:37 09/14/18 05:37 09/14/18 05:37 Temperature -Last 24 Hours Temperature 98.8 F Temperature 98.6 F Temperature 97.9 F - Labs CBC & Chem 7: 09/11/18 05:18 09/14/18 03:51 Labs: Abnormal lab results 09/14/18 Range/Units 03:51 Sodium 134 L (137-145) mmol/L Potassium 3.0 L (3.6-5.0) mmol/L BUN 2 L (9-20) mg/dL Creatinine 0.6 L (0.8-1.5) mg/dL Calcium 6.8 L (8.4-10.2) mg/dL
[2018-09-14] MEDS: SODIUM CHLORIDE FLUSH SYRINGE 10 ML IV SCH ×2 (12:47→22:00)
[2018-09-14] MEDS: ZOSYN/NS 4.5GM/100ML 4.5 GM/100 ML VIAL IV SCH (12:47)
[2018-09-14] MEDS: DIFLUCAN PO SCH (17:21)
[2018-09-14] MEDS: UNASYN/NS 3 GM/100 ML 3 GM/100 ML BAG IV SCH ×2 (17:29→23:44)
[2018-09-14] MEDS ORDERED: ZOSYN/NS 4.5GM/100ML 4.5 GM/100 ML VIAL IV SCH (20:00)
[2018-09-15 00:36] LABS: Hematocrit 27.1 % (35.5-45.6); Hemoglobin 9.2 gm/dl (11.8-15.2); Mean Corpuscular HGB Conc 34 % (32-34); Mean Corpuscular Volume 90 fl (84-94); Platelet Count 196 K/mm3 (140-440); Red Blood Count 3.03 M/mm3 (3.65-5.03); Red Cell Distribution Width 14.3 % (13.2-15.2)
[2018-09-15 03:34] LABS: Anisocytosis 1+; Band Neutrophils # (Manual) 0.3 K/mm3; Basophils % (Manual) 0 % (0.0-1.8); Eosinophils % (Manual) 0 % (0.0-4.3); Target Cells Few; Total Cells Counted 100
[2018-09-15 03:35] LABS: Macrocytosis Few; Platelet Estimate Consistent w Auto
[2018-09-15] MEDS: UNASYN/NS 3 GM/100 ML 3 GM/100 ML BAG IV SCH ×3 (05:36→17:46)
[2018-09-15 06:25] LABS: Calcium 7.6 mg/dL (8.4-10.2); Hemolysis Index 4
[2018-09-15 06:32] LABS: BUN/Creatinine Ratio 2; Blood Urea Nitrogen < 1 mg/dL (9-20)
--- NOTE | 2018-09-15 09:59 | Progress Note ---
Assessment and Plan Assessment and plan: 43-year-old man with a known past medical history. Brought to the emergency room with altered mental status, decreased responsiveness per EMS he was staying at a local motel and per the motel staff he had been sick for a few days, and it was found unresponsive . At the time of presentation the patient was confused and lethargic and in soiled underwear. After lactulose he improved, admits to heavy etoh drinking , lives in the motel, c/o diffuse abdominal pain Labs reviewed, Ammonia in 200s on arrival, LFts wnl, etoh level neg UDS negative, hepatitis serology negative, UA negative labs show marked leukocytosis, slightly elevated TSh, but normal T4 Imaging; Chest x-ray shows left base pneumonia CT head shows no acute findings CT A/P; no image or report in EMR, but per RN, radiology called and said he has peritonitis and 6cm abscess in pelvic area, no signs of perforation Diagnosis Sepsis due to Pelvic abscess and peritonitis Community-acquired pneumonia Hepatic encephalopathy Hypokalemia Mild anemia Marked leukocytosis Etoh liver disease CAP Hypokalemia Hyponatremia hypomagnesemia beer potomonia PLAN Received empiric antibiotics, IV fluids, GS input appreciated , sp IR drainage with SARAVANAN drain placement done 09/10/18; repeat CT A/P today abx per ID He received lactulose, repeat ammonia level is now within normal limits Liver function tests are normal, which may be the case in advanced chronic liver disease hepatitis serologies negative GI input appreciated, cont medical mgt k and mg was repleted Low Na due to beer potomania, improved with NS DVT prophylaxis with Lovenox History Interval history: Review of systems Constitutional: No fevers, no malaise, no joint pains CVS: No chest pain, no orthopnea, no dyspnea on exertion, no pedal edema GI: abdominal pain has resolved Respiratory: No shortness of breath, no wheezing, no coughing Hospitalist Physical - Physical exam Narrative exam: General.: no distress HEENT: Moist mucous membranes, extraocular muscles intact, no lymphadenopathy Neck: supple Cardiac: S1-S2 heard Lungs: clear to auscultation bilaterally Abdomen: soft , tender, nondistended, bowel sounds positive Extremities: no edema clubbing or cyanosis Skin: no rash or lesions Neurologic: no gross focal deficits Psych: calm, and cooperative - Constitutional Vitals: Temp Pulse Resp BP Pulse Ox 98.5 F 81 18 110/75 98 09/15/18 05:29 09/15/18 05:29 09/15/18 05:29 09/15/18 05:29 09/15/18 05:29 General appearance: Present: no acute distress Results - Labs CBC & Chem 7: 09/15/18 00:18 09/15/18 05:18 Labs: Laboratory Last Values WBC 10.8 K/mm3 (4.5-11.0) 09/15/18 00:18 RBC 3.03 M/mm3 (3.65-5.03) L 09/15/18 00:18 Hgb 9.2 gm/dl (11.8-15.2) L 09/15/18 00:18 Hct 27.1 % (35.5-45.6) L 09/15/18 00:18 MCV 90 fl (84-94) 09/15/18 00:18 MCH 30 pg (28-32) 09/15/18 00:18 MCHC 34 % (32-34) 09/15/18 00:18 RDW 14.3 % (13.2-15.2) 09/15/18 00:18 Plt Count 196 K/mm3 (140-440) 09/15/18 00:18 Add Manual Diff Complete 09/15/18 00:18 Total Counted 100 09/15/18 00:18 Seg Neuts % (Manual) 92.0 % (40.0-70.0) H 09/15/18 00:18 Band Neutrophils % 3.0 % 09/15/18 00:18 Lymphocytes % (Manual) 3.0 % (13.4-35.0) L 09/15/18 00:18 Reactive Lymphs % (Man) 1.0 % 09/15/18 00:18 Monocytes % (Manual) 1.0 % (0.0-7.3) 09/15/18 00:18 Eosinophils % (Manual) 0 % (0.0-4.3) 09/15/18 00:18 Basophils % (Manual) 0 % (0.0-1.8) 09/15/18 00:18 Metamyelocytes % 0 % 09/15/18 00:18 Myelocytes % 0 % 09/15/18 00:18 Promyelocytes % 0 % 09/15/18 00:18 Blast Cells % 0 % 09/15/18 00:18 Nucleated RBC % Not Reportable 09/15/18 00:18 Seg Neutrophils # Man 9.9 K/mm3 (1.8-7.7) H 09/15/18 00:18 Band Neutrophils # 0.3 K/mm3 09/15/18 00:18 Lymphocytes # (Manual) 0.3 K/mm3 (1.2-5.4) L 09/15/18 00:18 Abs React Lymphs (Man) 0.1 K/mm3 09/15/18 00:18 Monocytes # (Manual) 0.1 K/mm3 (0.0-0.8) 09/15/18 00:18 Eosinophils # (Manual) 0.0 K/mm3 (0.0-0.4) 09/15/18 00:18 Basophils # (Manual) 0.0 K/mm3 (0.0-0.1) 09/15/18 00:18 Metamyelocytes # 0.0 K/mm3 09/15/18 00:18 Myelocytes # 0.0 K/mm3 09/15/18 00:18 Promyelocytes # 0.0 K/mm3 09/15/18 00:18 Blast Cells # 0.0 K/mm3 09/15/18 00:18 WBC Morphology Not Reportable 09/15/18 00:18 Hypersegmented Neuts Not Reportable 09/15/18 00:18 Hyposegmented Neuts Not Reportable 09/15/18 00:18 Hypogranular Neuts Not Reportable 09/15/18 00:18 Smudge Cells Not Reportable 09/15/18 00:18 Toxic Granulation Not Reportable 09/15/18 00:18 Toxic Vacuolation Not Reportable 09/15/18 00:18 Dohle Bodies Not Reportable 09/15/18 00:18 Pelger-Huet Anomaly Not Reportable 09/15/18 00:18 Deepali Rods Not Reportable 09/15/18 00:18 Platelet Estimate Consistent w auto 09/15/18 00:18 Clumped Platelets Not Reportable 09/15/18 00:18 Plt Clumps, EDTA Not Reportable 09/15/18 00:18 Large Platelets Not Reportable 09/15/18 00:18 Giant Platelets Not Reportable 09/15/18 00:18 Platelet Satelliting Not Reportable 09/15/18 00:18 Plt Morphology Comment Not Reportable 09/15/18 00:18 RBC Morphology Not Reportable 09/15/18 00:18 Dimorphic RBCs Not Reportable 09/15/18 00:18 Polychromasia Rare 09/15/18 00:18 Hypochromasia Not Reportable 09/15/18 00:18 Poikilocytosis Not Reportable 09/15/18 00:18 Anisocytosis 1+ 09/15/18 00:18 Microcytosis Not Reportable 09/15/18 00:18 Macrocytosis Few 09/15/18 00:18 Spherocytes Not Reportable 09/15/18 00:18 Pappenheimer Bodies Not Reportable 09/15/18 00:18 Sickle Cells Not Reportable 09/15/18 00:18 Target Cells Few 09/15/18 00:18 Tear Drop Cells Not Reportable 09/15/18 00:18 Ovalocytes Not Reportable 09/15/18 00:18 Helmet Cells Not Reportable 09/15/18 00:18 Fuentes-[place] Bodies Not Reportable 09/15/18 00:18 [place] Rings Not Reportable 09/15/18 00:18 Trent Cells Not Reportable 09/15/18 00:18 Bite Cells Not Reportable 09/15/18 00:18 Crenated Cell Not Reportable 09/15/18 00:18 Elliptocytes Not Reportable 09/15/18 00:18 Acanthocytes (Spur) Not Reportable 09/15/18 00:18 Rouleaux Not Reportable 09/15/18 00:18 Hemoglobin C Crystals Not Reportable 09/15/18 00:18 Schistocytes Not Reportable 09/15/18 00:18 Malaria parasites Not Reportable 09/15/18 00:18 Tristian Bodies Not Reportable 09/15/18 00:18 Hem Pathologist Commnt No 09/15/18 00:18 PT 17.1 Sec. (12.2-14.9) H 09/11/18 05:18 INR 1.35 (0.87-1.13) H 09/11/18 05:18 Sodium 137 mmol/L (137-145) 09/15/18 05:18 Potassium 3.5 mmol/L (3.6-5.0) L 09/15/18 05:18 Chloride 105.9 mmol/L (98-107) 09/15/18 05:18 Carbon Dioxide 24 mmol/L (22-30) 09/15/18 05:18 Anion Gap 11 mmol/L 09/15/18 05:18 BUN < 1 mg/dL (9-20) L 09/15/18 05:18 Creatinine 0.5 mg/dL (0.8-1.5) L 09/15/18 05:18 Estimated GFR > 60 ml/min 09/15/18 05:18 BUN/Creatinine Ratio 2 % 09/15/18 05:18 Glucose 85 mg/dL (75-100) 09/15/18 05:18 POC Glucose 107 (70-105) H 09/08/18 14:08 Lactic Acid 1.40 mmol/L (0.7-2.0) 09/09/18 05:40 Calcium 7.6 mg/dL (8.4-10.2) L 09/15/18 05:18 Magnesium 2.00 mg/dL (1.7-2.3) 09/14/18 03:51 Total Bilirubin 1.60 mg/dL (0.1-1.2) H 09/11/18 05:18 AST 25 units/L (5-40) 09/11/18 05:18 ALT 19 units/L (7-56) 09/11/18 05:18 Alkaline Phosphatase 113 units/L (35-129) 09/11/18 05:18 Ammonia 48.0 umol/L (25-60) 09/14/18 13:10 Troponin T < 0.010 ng/mL (0.00-0.029) 09/08/18 14:23 C-Reactive Protein 5.40 mg/dL (0.00-1.30) H 09/10/18 21:37 Total Protein 5.9 g/dL (6.3-8.2) L 09/11/18 05:18 Albumin 1.9 g/dL (3.9-5) L 09/11/18 05:18 Albumin/Globulin Ratio 0.5 % 09/11/18 05:18 Lipase 104 units/L (13-60) H 09/08/18 14:23 TSH 4.490 mlU/mL (0.270-4.200) H 09/08/18 14:23 Free T4 0.93 ng/dL (0.76-1.46) 09/08/18 16:10 Urine Color Brianne (Yellow) 09/08/18 14:39 Urine Turbidity Clear (Clear) 09/08/18 14:39 Urine pH 5.0 (5.0-7.0) 09/08/18 14:39 Ur Specific Whitman 1.011 (1.003-1.030) 09/08/18 14:39 Urine Protein <15 mg/dl mg/dL (Negative) 09/08/18 14:39 Urine Glucose (UA) Neg mg/dL (Negative) 09/08/18 14:39 Urine Ketones Tr mg/dL (Negative) 09/08/18 14:39 Urine Blood Neg (Negative) 09/08/18 14:39 Urine Nitrite Neg (Negative) 09/08/18 14:39 Urine Bilirubin Neg (Negative) 09/08/18 14:39 Urine Urobilinogen 2.0 mg/dL (<2.0) 09/08/18 14:39 Ur Leukocyte Esterase Neg (Negative) 09/08/18 14:39 Urine WBC (Auto) 1.0 /HPF (0.0-6.0) 09/08/18 14:39 Urine RBC (Auto) < 1.0 /HPF (0.0-6.0) 09/08/18 14:39 Salicylates < 0.3 mg/dL (2.8-20.0) L 09/08/18 16:10 Urine Opiates Screen Presumptive negative 09/08/18 14:39 Urine Methadone Screen Presumptive negative 09/08/18 14:39 Acetaminophen < 5.0 ug/mL (10.0-30.0) L 09/08/18 16:10 Ur Barbiturates Screen Presumptive negative 09/08/18 14:39 Ur Phencyclidine Scrn Presumptive negative 09/08/18 14:39 Ur Amphetamines Screen Presumptive negative 09/08/18 14:39 U Benzodiazepines Scrn Presumptive negative 09/08/18 14:39 Urine Cocaine Screen Presumptive negative 09/08/18 14:39 U Marijuana (THC) Screen Presumptive negative 09/08/18 14:39 Drugs of Abuse Note Disclamer 09/08/18 14:39 Plasma/Serum Alcohol < 0.01 % (0-0.07) 09/08/18 14:23 Hepatitis A IgM Ab Non-reactive (NonReactive) 09/08/18 16:10 Hep Bs Antigen Non-reactive (Negative) 09/08/18 16:10 Hep B Core IgM Ab Non-reactive (NonReactive) 09/08/18 16:10 Hepatitis C Antibody Non-reactive (NonReactive) 09/08/18 16:10 HIV 1&2 Antibody Rapid Non react (Non React) 09/10/18 21:37 HIV P24 Antigen Non react (Non React) 09/10/18 21:37 Nutrition/Malnutrition Assess - Dietary Evaluation Nutrition/Malnutrition Findings: Nutrition Notes Start: 09/09/18 15:10 Freq: Status: Active Protocol: Document 09/11/18 14:50 RM (Rec: 09/11/18 14:52 RM [email or web address]) Nutrition Notes Initial or Follow up Reassessment Current Diagnosis Acute Kidney Injury Other Pertinent Diagnosis ? hepatic encephalopathy, ETOH dependence, Pelvic abscess Current Diet Vegetarian Labs/Tests Reviewed Pertinent Medications Reviewed Height 5 ft 7 in Weight 54.2 kg Mobile Body Weight (kg) 67.27 BMI 18.7 Weight change and time frame Previously wt likely inaccurate d/t human error Subjective/Other Information Unable to order Ensure Enlive from previous visit d/t pt NPO status Cable Spooler had difficulty communicating with pt. Unclear whether pt does not speak frisian well and/or he was confused at time of visit. Pt stated that he speaks Gujarati so attempted to use interpretive services but pt did not seem to understand client account specialist either. Pt declined to continue using interpretive services. Pt did state that he does not eat meat and is willing to try Ensure to help meet protein needs. Unsure of UBW. Per nurse pt eats all of his meals and confirmed that pt does not eat meat. Burn Absent Trauma Absent #2 Nutrition Diagnosis Inadequate protein intake Etiology food preferences As Evidenced by Signs and Symptoms pt on vegetarian diet #1 Nutrition Diagnosis Predicted suboptimal energy intake As Evidenced by Signs and Symptoms nurse statement that pt eats all of his meals Diagnosis Progress(for reassessment Improved documentation) Is patient on ventilator? No Is Patient Ambulatory and/or Out of Bed No REE-([place]-confined to bed) 1672.320 Kcal/Kg value to use for calculation 46 Approximate Energy Requirements Using 2493 kcal/Kg Calculation Used for Recommendations Kcal/kg Additional Notes Protein Needs: 54-70g (1-1.3g/ kg) Fluid Needs: 1 ml/kcal Nutrition Intervention Change Diet Order: Continue current Add Supplement/Snack (indicate name/kcal Ensure Enlive 1 daily /protein ) Provides kCal: 350 Provides Protein (gm) 20 Goal #1 ONS tolerance Goal #2 Meet at least 75% of calorie and protein needs via PO and ONS intakes Anticipated Discharge Needs: Vegetarian diet Follow-Up By: 09/16/18 Additional Comments Follow for PO and ONS intakes
--- NOTE | 2018-09-15 10:17 | Progress Note ---
Assessment and Plan Cultures: 09/08/2018 blood culture no growth 09/10/2018 surgical : [facility], Beta Hemolytic Group G A/P: 43 y/o male with heavy ETOH abuse; admitted on 09/08/2018 due to be found almost unresponsive at a local motel: Sepsis:Improved. Leukocytosis continuing; etio. pelvic abscess +/- presumed pneumonia. Blood cultures 09/08/2018 no growth so far -TTE- no valvular vegetation -CRP 5.40 Pelvic abscess: of unclear etiology, there are more than one, s/p CT drainage + 50cc of purulence, Gram stain many PMNs, GPC. CT revealing peritonitis and rim- enhancing fluid collection within his pelvis. -HIV- negative Presumed pneumonia: CXR LLL consolidation vs atelectasis ? aspiration Hepatic encephalopathy: Improved. initial Ammonia 220. Viral hepatitis A, B, C negative. ETOH liver cirrhosis Recs: continue Unasyn while inpatient f/u drainage cultures -f/u CT of abdomen and pelvis with contrast -upon discharge Augmentin 875mg po BID and Fluconazole 400mg po qd for a total of 14 days, ending 09-24-18 [facility] M: [phone] O:[phone] Subjective Date of service: 09/15/18 Principal diagnosis: ETOH liver disease Interval history: Patient seen and examined. Denied generalization pain, SOB or rashes. Discussed current plan of care . Verbalized understanding. Objective - Exam Narrative Exam: Constitutional: Alert, cooperative. No acute distress Head, Ears, Nose: Normocephalic, atraumatic. External ears, nose normal Eyes: Conjunctivae/corneas clear. + icterus. No ptosis. Neck:no JVD Oral: clear Cardiovascular: RRR +murmur Respiratory: Good air entry, clear to auscultation bilaterally GI: Soft, non-tender; bowel sounds normal. Post pelvic drain +purulent Musculoskeletal: No pedal edema, no cyanosis. Skin: +drain right hip Hem/Lymphatic: No palpable cervical or supraclavicular nodes. No lymphangitis Psych: Mood ok. Flat Affect Neurological: Awake, alert, confused - Constitutional Vitals: Vital Signs Temp Pulse Resp BP Pulse Ox 98.5 F 81 18 110/75 98 09/15/18 05:29 09/15/18 05:29 09/15/18 05:29 09/15/18 05:29 09/15/18 05:29 Temperature -Last 24 Hours Temperature 98.5 F Temperature 98.3 F Temperature 99.0 F Temperature 98.0 F - Labs CBC & Chem 7: 09/15/18 00:18 09/15/18 05:18 Labs: Abnormal lab results 09/15/18 09/15/18 Range/Units 00:18 05:18 RBC 3.03 L (3.65-5.03) M/mm3 Hgb 9.2 L (11.8-15.2) gm/dl Hct 27.1 L (35.5-45.6) % Seg Neuts % (Manual) 92.0 H (40.0-70.0) % Lymphocytes % (Manual) 3.0 L (13.4-35.0) % Seg Neutrophils # Man 9.9 H (1.8-7.7) K/mm3 Lymphocytes # (Manual) 0.3 L (1.2-5.4) K/mm3 Potassium 3.5 L (3.6-5.0) mmol/L BUN < 1 L (9-20) mg/dL Creatinine 0.5 L (0.8-1.5) mg/dL Calcium 7.6 L (8.4-10.2) mg/dL
[2018-09-15] MEDS: DIFLUCAN PO SCH (11:14)
[2018-09-15] MEDS: K-DUR PO SCH (11:14)
[2018-09-15] MEDS: SODIUM CHLORIDE FLUSH SYRINGE 10 ML IV SCH (11:15)
--- NOTE | 2018-09-15 14:44 | Cat Scan Report ---
FINAL REPORT EXAM: CT ABDOMEN PELVIS W CON HISTORY: Pelvic abscess TECHNIQUE: CT of the abdomen and pelvis was performed after the administration of intravenous contra st. Subsequently, CT of the abdomen and pelvis was performed in the delayed phase. Reconstructions were included in the coronal and sagittal planes. PRIORS: 09/08/2018. FINDINGS: Lower thorax: There are small bilateral pleural effusions with adjacent atelectasis. The visualized p ortions of the heart are normal. Liver: Nodular contour of the liver is again seen. No intrahepatic biliary duct dilation. No focal he patic lesions. Gallbladder/ biliary system: The gallbladder appears collapsed with hyper enhancing garcia. Pericholec ystic fluid is seen. No definite cholelithiasis. The common bile duct appears nondilated. Spleen: No splenic lesions are seen. Pancreas: No pancreatic lesions are seen. No pancreatic duct dilation. Kidneys: Small probable simple right superior pole renal cyst is seen. No hydronephrosis on either si de. Adrenal glands: No adrenal masses. Vasculature: Multiple upper abdominal varices are seen. Paraesophageal varices are seen. Recanalized umbilical vein is noted. Lymph nodes: No enlarged lymph nodes are seen in the abdomen or pelvis. Bowel, mesentery, peritoneum: No colonic diverticulosis. There is wall thickening and surrounding inf lammation of the transverse and ascending colon. Dilation of multiple loops of small bowel with wall thickening and surrounding inflammation is again seen. Moderate volume of ascites has increased since the prior study. No free air. The appendix is nondilated. Urinary bladder: There is diffuse urinary bladder wall thickening and surrounding inflammation. Pelvis: A right transgluteal pigtail drainage catheter has been placed within the pelvic abscess. No residual abscess is seen. Abdominal wall: No abdominal wall hernia or other subcutaneous findings. Bones: Degenerative changes are seen in the spine. Bilateral L5 pars interarticularis defects are see n. There is grade 1 anterolisthesis of L5 on S1. IMPRESSION: 1. Status post percutaneous drainage of the pelvic abscess without evidence of residual fluid collect ion. 2. Residual findings of colitis involving the ascending and transverse colon. Wall thickening with in flammation and dilation of several loops of small bowel may reflect enteritis with associated ileus o r developing small bowel obstruction. 3. Small bilateral pleural effusions with adjacent atelectasis. 4. Wall thickening and surrounding inflammation of the urinary bladder which may represent cystitis. 5. Findings of hepatic cirrhosis again seen with nodular hepatic contour and upper abdominal and para esophageal varices. Recanalized umbilical vein noted. 6. Hyper enhancement of the gallbladder wall with pericholecystic fluid can be seen in hepatic cirrho sis or acalculus cholecystitis.
[2018-09-16] MEDS: UNASYN/NS 3 GM/100 ML 3 GM/100 ML BAG IV SCH ×3 (00:09→11:31)
[2018-09-16 05:52] VITALS: BP 109/63
[2018-09-16 06:47] LABS: Calcium 7.4 mg/dL (8.4-10.2); Hemolysis Index 4
[2018-09-16 06:48] LABS: BUN/Creatinine Ratio 3; Blood Urea Nitrogen < 1 mg/dL (9-20)
--- NOTE | 2018-09-16 08:30 | Progress Note ---
Assessment and Plan - Patient Problems (1) Pelvic abscess in male Current Visit: Yes Status: Acute Plan to address problem: Pt stable. CT reviewed fluid collection in pelvis resolved. Drain output is primarily serous. Drain removed without difficulty. No further surgical intervention needed. Probably had microperforation as others have commented. Ok for d/c from my standpoint. f/u prn. Please call with questions. Time=10min Subjective Date of service: 09/16/18 Patient Reports: Positive: no new complaints, feels better Objective Vital Signs - 12hr 09/16/18 09/16/18 00:11 05:50 Temperature 98.4 F 98.6 F Pulse Rate 88 79 Respiratory 18 18 Rate Blood Pressure 104/63 109/63 O2 Sat by Pulse 96 94 Oximetry - General physical appearance no distress, no pain - Respiratory normal expansion, normal respiratory effort - Abdomen soft, not tender, not distended, not guarding, not rigid, other (drain with primarily serous fluid) - Psychiatric speech is normal - Labs 09/15/18 00:18 09/16/18 05:15 Diabetes panel 09/16/18 Range/Units 05:15 Sodium 138 (137-145) mmol/L Potassium 3.6 (3.6-5.0) mmol/L Chloride 105.9 (98-107) mmol/L Carbon Dioxide 21 L (22-30) mmol/L BUN < 1 L (9-20) mg/dL Creatinine 0.4 L (0.8-1.5) mg/dL Glucose 83 (75-100) mg/dL Calcium 7.4 L (8.4-10.2) mg/dL Calcium panel 09/16/18 Range/Units 05:15 Calcium 7.4 L (8.4-10.2) mg/dL Pituitary panel 09/16/18 Range/Units 05:15 Sodium 138 (137-145) mmol/L Potassium 3.6 (3.6-5.0) mmol/L Chloride 105.9 (98-107) mmol/L Carbon Dioxide 21 L (22-30) mmol/L BUN < 1 L (9-20) mg/dL Creatinine 0.4 L (0.8-1.5) mg/dL Glucose 83 (75-100) mg/dL Calcium 7.4 L (8.4-10.2) mg/dL Adrenal panel 09/16/18 Range/Units 05:15 Sodium 138 (137-145) mmol/L Potassium 3.6 (3.6-5.0) mmol/L Chloride 105.9 (98-107) mmol/L Carbon Dioxide 21 L (22-30) mmol/L BUN < 1 L (9-20) mg/dL Creatinine 0.4 L (0.8-1.5) mg/dL Glucose 83 (75-100) mg/dL Calcium 7.4 L (8.4-10.2) mg/dL
--- NOTE | 2018-09-16 10:51 | Progress Note ---
Assessment and Plan Cultures: 09/08/2018 blood culture no growth 09/10/2018 surgical : [facility], Beta Hemolytic Group G A/P: 43 y/o male with heavy ETOH abuse; admitted on 09/08/2018 due to be found almost unresponsive at a local motel: Sepsis:Improved. Leukocytosis continuing; etio. pelvic abscess +/- presumed pneumonia. Blood cultures 09/08/2018 no growth so far -TTE- no valvular vegetation -CRP 5.40 Pelvic abscess: of unclear etiology, there are more than one, s/p CT drainage + 50cc of purulence, Gram stain many PMNs, GPC. CT revealing peritonitis and rim- enhancing fluid collection within his pelvis. Repeat CT reviewed by Dr. Navarro , fluid collection in pelvis resolved. Drain output is primarily serous. Drain removed without difficulty. No further surgical intervention needed. +/- microperforation. Presumed pneumonia: CXR LLL consolidation vs atelectasis ? aspiration Hepatic encephalopathy: Improved. initial Ammonia 220. Viral hepatitis A, B, C negative. ETOH liver cirrhosis Recs: continue Unasyn while inpatient -upon discharge Augmentin 875mg po BID and Fluconazole 400mg po qd for a total of 14 days, ending 09-24-18 [facility] M: [phone] O:[phone] Subjective Date of service: 09/16/18 Principal diagnosis: ETOH liver disease Objective - Constitutional Vitals: Vital Signs Temp Pulse Resp BP Pulse Ox 98.6 F 79 18 109/63 94 09/16/18 05:50 09/16/18 05:50 09/16/18 05:50 09/16/18 05:50 09/16/18 05:50 Temperature -Last 24 Hours Temperature 98.6 F Temperature 98.4 F Temperature 97.9 F Temperature 98.0 F - Labs CBC & Chem 7: 09/15/18 00:18 09/16/18 05:15 Labs: Abnormal lab results 09/16/18 Range/Units 05:15 Carbon Dioxide 21 L (22-30) mmol/L BUN < 1 L (9-20) mg/dL Creatinine 0.4 L (0.8-1.5) mg/dL Calcium 7.4 L (8.4-10.2) mg/dL
--- NOTE | 2018-09-16 10:59 | Discharge Summary ---
Providers - Providers Date of Admission: 09/08/18 16:47 Attending physician: GWEN SHANKS MD 09/08/18 20:59 Consult to Physician [CONS] Routine Comment: Consulting Provider: PADMINI SALAZAR Physician Instructions: Reason For Exam: Abdominal Pain 09/09/18 09:37 Physical Therapy Evaluation and Treat [CONS] Routine Comment: Reason For Exam: ataxia Speech Therapy Evaluation and Treat [CONS] Routine Reason For Exam: dysphagia 09/09/18 12:04 Consult to Physician [CONS] Routine Comment: Consulting Provider: GARY HAIRSTON Physician Instructions: Reason For Exam: etoh liver disease 09/09/18 17:24 Consult to Interventional Radiology [CONS] Routine Consulting Provider: GREG MAXWELL Reason For Exam: drainage of pelvic fluid collection Place consult to:: DR. MAXWELL Notified:: DR. MAXWELL Phone number called:: [phone] Was contact made?: Yes If yes, spoke with:: [place] SPO[place] DR. MAXWELL Time called:: 17:47 Comment:: [place] SPO[place] DR. MAXWELL Primary care physician: MAYELA MELENDEZ Hospitalization Condition: Stable Hospital course: 43-year-old man with a known past medical history. Brought to the emergency room with altered mental status, decreased responsiveness per EMS he was staying at a local motel and per the mot staff he had been sick for a few days, and it was found unresponsive . At the time of presentation the patient was confused and lethargic and in soiled underwear. After lactulose he improved, admits to heavy etoh drinking , lives in the motel, c/o diffuse abdominal pain Labs reviewed, Ammonia in 200s on arrival, LFts wnl, etoh level neg UDS negative, hepatitis serology negative, UA negative labs show marked leukocytosis, slightly elevated TSh, but normal T4 Imaging; Chest x-ray shows left base pneumonia CT head shows no acute findings CT A/P; no image or report in EMR, but per RN, radiology called and said he has peritonitis and 6cm abscess in pelvic area, no signs of perforation Diagnosis Sepsis due to Pelvic abscess and peritonitis Community-acquired pneumonia Hepatic encephalopathy Hypokalemia Mild anemia Marked leukocytosis Etoh liver disease CAP Hypokalemia Hyponatremia hypomagnesemia [facility] Hospital course Received empiric antibiotics, IV fluids, GS input appreciated , sp IR drainage with SARAVANAN drain placement done 09/10/18; repeat CT A/P today abx per ID -It is most likely that the intra-abdominal abscess was due to microperforation. He is being discharged on a course of oral antibiotics He received lactulose, repeat ammonia level is now within normal limits Liver function tests are normal, which may be the case in advanced chronic liver disease hepatitis serologies negative GI input appreciated, cont medical mgt k and mg was repleted Low Na due to beer potomania, improved with NS -He was counseled on alcohol cessation program to discharge DVT prophylaxis with Lovenox Disposition: DC-01 TO HOME OR SELFCARE Time spent for discharge: 33 mins Core Measure Documentation - Palliative Care Palliative Care/ Comfort Measures: Not Applicable - Core Measures Any of the following diagnoses?: none Exam - Constitutional Vitals: Temp Pulse Resp BP Pulse Ox 98.6 F 79 18 109/63 94 09/16/18 05:50 09/16/18 05:50 09/16/18 05:50 09/16/18 05:50 09/16/18 05:50 General appearance: Present: no acute distress, well-nourished - EENT Eyes: Present: PERRL ENT: hearing intact, clear oral mucosa - Neck Neck: Present: supple, normal ROM - Respiratory Respiratory effort: normal Respiratory: bilateral: CTA - Cardiovascular Heart Sounds: Present: S1 & S2. Absent: rub, click - Extremities Extremities: pulses symmetrical, No edema Peripheral Pulses: within normal limits - Abdominal General gastrointestinal: Present: soft, non-tender, non-distended, normal bowel sounds Male genitourinary: Present: normal - Integumentary Integumentary: Present: clear, warm, dry - Musculoskeletal Musculoskeletal: gait normal, strength equal bilaterally - Psychiatric Psychiatric: appropriate mood/affect, intact judgment & insight - Neurologic Neurologic: CNII-XII intact, moves all extremities Plan Follow up with: MAYELA MELENDZE MD [Primary Care Provider] - 7 Days Prescriptions: Amoxicillin/Potassium Clav [Augmentin 875-125 Tablet] 1 each PO BID 8 Days t ablet RX: Fluconazole [Diflucan TAB] 400 mg PO QDAY 8 Days tablet RX: Folic Acid 1 tab PO QDAY #30 tab RX: oxyCODONE /ACETAMINOPHEN [Percocet 5/325 mg] 1 tab PO Q6H PRN #14 tablet PRN Reason: Pain, Moderate (4-6) RX: Thiamine [Vitamin B-1] 100 mg PO QDAY #30 tablet
[2018-09-16] MEDS: DIFLUCAN PO SCH (11:28)
[2018-09-16] MEDS: SODIUM CHLORIDE FLUSH SYRINGE 10 ML IV SCH (11:29)
[2018-09-16] MEDS: K-DUR PO SCH (11:29)
== END 2018-09-16 13:55 | disposition home or self-care (01) | DRG 871 ==
LOC: ED 13:56 → 3A 16:47
PROVIDERS: ADMIT Internal Medicine; ATTEND Internal Medicine
PROC: 0W9J30Z Drainage of Pelvic Cavity with Drainage Device, Percutaneous Approach (ICD-10-PCS; principal; 2018-09-10)
DX: A41.9 Sepsis, unspecified organism (principal); E43 Unspecified severe protein-calorie malnutrition; N17.0 Acute kidney failure with tubular necrosis; K65.1 Peritoneal abscess; K65.9 Peritonitis, unspecified; J18.9 Pneumonia, unspecified organism; B17.9 Acute viral hepatitis, unspecified; E87.1 Hypo-osmolality and hyponatremia; K72.90 Hepatic failure, unspecified without coma; F10.20 Alcohol dependence, uncomplicated; D64.9 Anemia, unspecified; K70.30 Alcoholic cirrhosis of liver without ascites; E83.42 Hypomagnesemia; E87.6 Hypokalemia; Z68.1 Body mass index [BMI] 19.9 or less, adult
CPT/HCPCS: 10160; 36415; 70450; 71045; 71046; 74177; 76705; 77012; 80048; 80053; 80074; 80307; 80320; 81001; 82140; 82962; 83690; 83735; 84439; 84443; 84484; 85007; 85025; 85610; 86140; 87040; 87116; 87806; 90686; 93005; 93010; 93306; 96361; 96365; G0378; C1769; G0480; J0295; J1170; J1956; J2250; J2543; J3010; J3370; J3475; J3480; J7030; J7040; Q9967